=== PATIENT | female | born 1985 | race Caucasian/White ===

== ENCOUNTER 2017-12-12 05:01 | Emergency (ER) | payer MEDICAID, SELFPAY ==
[2017-12-12 05:03] VITALS: BP 115/61; PULSE 90; RESP 16; TEMP 36.8; O2SAT 98
--- NOTE | 2017-12-12 05:10 | ED.VISSUMM ---
- ER Visit Summary Date of Service: 12/12/17 Chief Complaint: Sore throat History of Present Illness: The patient is a 32 F who presents with a sore throat. It is been present for 2 days. She also has associated congestion and cough. She denies fevers chest pain shortness of breath nausea vomiting or diarrhea. She was seen at the urgent care the day her symptoms began and had a strep test which was negative. She woke this morning it hurt to swallow. She took ibuprofen and presented here. Physical Examination: Afebrile vitals are normal No distress resting comfortably Oropharynx is clear I do not appreciate any posterior oropharyngeal erythema uvular deviation or exudate she has no trismus she has normal voice Neck is supple nontender no lymphadenopathy Heart regular rate and rhythm Lungs are clear Test Results: Not indicated Emergency Department Course and Treatment: Patient's history and presentation are consistent with a viral pharyngitis. She was advised on supportive care. She understands to return for new or worsening symptoms. She was advised to continue ibuprofen or Tylenol as needed at home for pain. Treatment Plan: [] Disposition: Discharge Impression: Viral pharyngitis This note was generated with [employer] dictation software. It may contain incorrect words, spelling, and punctuation that were not noted in review of the chart prior to signing ED Disposition - Plan for ED Patient: Chief Complaint: Sore Throat Referrals: Jone Ruiz MD [Primary Care Provider] -
--- NOTE | 2017-12-12 05:12 | ED.DEP ---
ED Disposition - Plan for ED Patient: Chief Complaint: Sore Throat Instructions: ED Pharyngitis Viral Referrals: Jone Ruiz MD [Primary Care Provider] -
== END 2017-12-12 05:26 | disposition home or self-care (01) ==
PROVIDERS: Emergency Provider Emergency Medicine
DX: J02.9 Acute pharyngitis, unspecified (principal); R05 Cough
CPT/HCPCS: 99282

== ENCOUNTER 2018-02-15 17:38 | Emergency (ER) | payer MEDICAID, SELFPAY ==
[2018-02-15 17:40] VITALS: BP 109/58; PULSE 84; RESP 16; TEMP 36.8; O2SAT 100
[2018-02-15] MEDS: Bupivacaine Mpf 0.5% 30 ML VIAL INFILT (18:15)
--- NOTE | 2018-02-15 18:35 | ED.VISSUMM ---
- ER Visit Summary Date of Service: 02/15/18 Chief Complaint: Infection of fourth toe History of Present Illness: The patient is a 32 F presents to the emergency department with infection of the fourth toe. Patient states that she has had a bunion at the area. She went to urgent care 2 days ago because it was increased in size. The counseled on supportive care. She states that the swelling has continued increase. She has had pain with ambulation. She denies any injury. She is otherwise healthy. She denies any fevers or chills. She has no history of immunosuppression. Physical Examination: Patient does have chronic skin change on the dorsal lateral aspect of the right fourth toe. There is fluid-filled bunion with some surrounding cellulitis. There is no pain under the nail. There is no streaking up the foot. Pulses are normal. Test Results: [] Emergency Department Course and Treatment: I do for the patient likely has bunion that is now secondarily infected. Digital block was performed. The area of maximum fluctuance was opened and clear fluid was able to be expressed. I did unroofed the area of blister. Wound was irrigated. This was all done under sterile technique. Patient will be placed on Keflex, placed in a postop shoe, and given outpatient podiatry follow-up to be seen early next week or return with any worsening symptoms or lack of improvement. She is comfortable with this plan of care. Treatment Plan: [] Disposition: Discharge Impression: 1. Infected bunion right fourth toe with incision and drainage This note was generated with [employer] dictation software. It may contain incorrect words, spelling, and punctuation that were not noted in review of the chart prior to signing ED Disposition - Plan for ED Patient: Chief Complaint: Lower Extremity Injury Instructions: ED Bunion Prescriptions: Cephalexin [Keflex] 500 mg PO Q6 #40 cap Referrals: Jone Rubio DPM [STAFF PHYSICIAN] -
[2018-02-15 18:53] VITALS: RESP 16
== END 2018-02-15 18:54 | disposition home or self-care (01) ==
LOC: ED 18:12
PROVIDERS: Emergency Provider Emergency Medicine
DX: M21.611 Bunion of right foot (principal); L03.031 Cellulitis of right toe
CPT/HCPCS: 10060; 99283

== ENCOUNTER → 2018-04-24 13:22 | Outpatient (CLI) | payer MEDICAID, SELFPAY ==
[2018-04-24 15:09] LABS: Follicle Stimulating Hormone 5.2 mIU/mL; Thyroid Stim Hormone (TSH) 0.53 uIU/mL (0.358-3.74)
== END ==
PROVIDERS: Visit Provider Obstetrics & Gynecology
DX: N95.1 Menopausal and female climacteric states (principal); R53.81 Other malaise
CPT/HCPCS: 36415; 83001; 84443

== ENCOUNTER 2018-08-02 16:26 | Emergency (ER) | payer OTHER, MEDICAID, SELFPAY ==
[2018-08-02 16:30] VITALS: BP 107/72; PULSE 70; RESP 18; TEMP 37.2; O2SAT 97; BMI 19.9
--- NOTE | 2018-08-02 16:42 | ED.RN ---
PER NANCI SALCEDO RN ON [facility]. PT IN NOT TO BE DRUG TESTED. ATTENDING DRKim AND NURSE NOTIFIED.
--- NOTE | 2018-08-02 16:55 | ED.DCSUM_ITS ---
- ER Visit Summary Date of Service: 08/02/18 Chief Complaint: Right shoulder injury History of Present Illness: The patient is a 33 F who states she was at work today. 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 Since that time it has been aching. She notes a popping sensation with movement. No prior injuries to the shoulder. She has not had any chronic issues with the shoulder in the past. She is right-handed. She denies any distal paresthesias. Physical Examination: Afebrile vital signs are stable Gen: Well-nourished well-developed Head: Normocephalic atraumatic Eyes: Perrl EOMI ENT: TMs clear no rhinorrhea moist mucous membranes Neck: Supple no lymphadenopathy no JVD nontender CVS: Regular rate rhythm no murmurs normal S1-S2 Respiratory: No distress clear to auscultation bilaterally chest nontender Abdomen: Soft nontender nondistended normal bowel sounds no masses Back: Nontender Extremity: Tender to palpation in the subacromial space. Full range of motion. There is some crepitance in the subacromial space with flexion extension at the shoulder joint. Skin: Normal color no rash Neuro: alert orientated ?3 CN II-XII intact normal strength sensation reflexes gait cerebellar Psych: Normal affect normal mood Test Results: Shoulder films were negative for fracture. I did not see any calcific tendinosis. I did not see any significant degenerative changes. Emergency Department Course and Treatment: I think this is most likely a subacromial bursitis resulting in impingement-like syndrome. Treatment will be ice rest anti-inflammatories. [facility] Impression: 1. Right shoulder bursitis This note was generated with [employer] dictation software. It may contain incorrect words, spelling, and punctuation that were not noted in review of the chart prior to signing ED Disposition - Plan for ED Patient: Disposition: Home or Assisted Living Chief Complaint: Upper Extremity Injury Instructions: ED Bursitis Referrals: [facility] [GROUP OF PHYSICIANS] - (call to arrange early follow up) Additional Instructions: Ice 20-minute sessions tonight and tomorrow Motrin 600 mg every 6 hours with food.
--- NOTE | 2018-08-02 17:00 | RAD_ITS ---
STUDY: X-RAY - RIGHT SHOULDER REASON FOR EXAM: Female, 33 years old. Pain and stiffness of the right arm. TECHNIQUE: 3 view(s) of the shoulder. COMPARISON: None. FINDINGS: Normal glenohumeral articulation. Normal acromioclavicular joint. Normal acromion. Normal humeral head and visualized proximal humerus. The soft tissue structures are unremarkable. There is no demonstrated fracture. Normal visualized pulmonary apex. RAD/Shoulder min 2 Views IMPRESSION: Normal x-ray examination of the shoulder. Electronically Signed: Trice Camejo MD at 17:32 EST , Service support ,
--- OUTSIDE RECORDS SUMMARY | 2018-11-06 07:29 | XMS RPT_ITS ---
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 arm in guarded posture, equal shoulder heights bilaterally. Pt. has FH with roundeds shoulders. PALPATION: Pt. has increased tenderness at anterior aspect of R shoulder along subacromial space. Pt. has mild pain at levator scapulea (likely from maintaining gaurded posture). NEURO: Pt. has normal sensation of bilateral UEs. Pt. has 2+ DTR of bilateral biceps and triceps. No signs of upper limb tension. ROM: L shoulder- full without increase in symptoms. R shoulder- AROM- flexion 145deg (increase pain at 90deg), abd 130deg (increased pain at 90deg), functional ER C1 abherrant motion, functioal IR R PSIS. PROM- R shoulder- flexion 165deg increase NW, abd 160deg increase NW, ER at 90deg- 75deg increase NW, IR at 90deg of abd- 40deg increase NW. MMT: L SHOULDER- 5/5 throughout. R shoulder- flexion 4/5 increase NW, abd 4/5 increase NW, ER 4/5 increase NW, IR 4/5 increase NW; elbow- 5/5 throughout without increase in symptoms. - Special Tests R Shoulder Lift Off Test - Subscapular Tear: Positive R Shoulder Drop Sign - IS Test: Negative R Shoulder Empty Can - SS: Positive R Shoulder Belly Press - SupScap: Positive R Shoulder Neer - Impingement: Positive R Shoulder Champion Dean - Impingement: Positive R Shoulder Biceps Load Test - Labrum: Negative R Shoulder Speeds Test - Labrum/Biceps: Negative - Goals Goal 1:: Pt. to be I with HEP. Goal Time Frame: 4-6 Weeks Goal 2:: Pt. to have decreased pain to 0-2/10 in R shoulder at rest and sleeping allowing for increase quality of life. Goal Time Frame: 4-6 Weeks Goal 3:: Pt. to have increased R shoulder ROM to full without increase in symptoms. Goal Time Frame: 4-6 Weeks Goal 4:: Pt. to have increased R shoulder strength by 1/2 grade in all effected musculature, reducing stress to GH joint without all work and recreational activities. Goal Time Frame: 4-6 Weeks Goal 5:: Pt. to resume all work and recreational activities without increase in R shoulder pain. Goal Time Frame: 4-6 Weeks - Rehabilitation Potential Physical Therapy Diagnosis: Pt. has signs and symptoms consistent with R shoulder pain. Pt. has limited ROM with increased pain with all attempts of functional rotation and over head motions. Pt. is very guarded with all mobility as well. Pt. was negative for drop signs and has some ER/IR strength. Due to higher levels of pain, difficult to full assess. Pt. has had no improvement in symptoms for 1 month. Pt. may have a partial tear vs tendonitis/bursits. Pt. would benefit from PT to increase her ROM and reduce symptoms in order to tolerate all work related activiies without limitions. Rehabilitation Potential: Fair - Anticipated Interventions Patient/Client Instruction: Educate patient on: Condition, Plan of Care, Risk Factors, Benefits of Fitness Program For the Purpose of:: To facilitate caregiver knowledge, To improve self management, To prevent re-injury, To improve ability to perform tasks related to life management, To improve tolerance to ADL's Therapeutic Exercise to Include: Strength training, Power training, Endurance training, Flexibilty training, Passive ROM, Active ROM, Scapular Strength/Stabilization For the Purpose of:: To decrease pain, To decrease swelling/inflammation, To increase ROM, To improve nutrient delivery to tissue, To improve muscle performance and motor function, To improve health of tissue, To decrease soft tissue restriction, To increase flexibility/ROM Manual Therapy Techniques to Include: Mobilization, Passive ROM, Soft tissue mobilization For the Purpose of:: To decrease pain, To decrease swelling/inflammation, To increase ROM, To improve nutrient delivery to tissue, To improve muscle performance and motor function, To improve health of tissue, To decrease soft tissue restriction, To increase flexibility/ROM IF ES: Yes Cryotherapy (ice pack, ice massage): Yes Ultrasound (thermal/non thermal): Yes For the Purpose of:: To decrease pain, To decrease swelling/inflammation, To increase ROM Thank you for the opportunity to evaluate your patient. For Medicare and Medicare HMO plans, please review the plan of care and approve it. It will need to be FAXED BACK to us at [phone] for Medicare purposes. For Medicare only, by signing this I certify the plan of care. Please let me know if there are questions or concerns regarding this plan of care. Physician Signature: Date: <Electronically signed by Senthil Gilliam DPT> 09/09/18 1007 CC: KURTIS Stanley; Gordo DOAN CLS Signed DISCHARGE INSTRUCTION Observed: 09/05/2018 Status: F Source: [place] 11:59 [facility] REPOSITORY [facility] Medical Records Department [address] [place] [address] Discharge Instruction 09/05/18 1157 MR#: [id number] Acct: [id number] Name: CRICKET GALLAGHER Thelma Rep #: [id number] : 1985 33 From: Rena Lamar DO PCP: Maurice Stanley NP Status: PRE ER ED Disposition - Plan for ED Patient: Chief Complaint: Upper Extremity Injury Instructions: ED Shoulder Pain UKO Prescriptions: Oxycodone HCl/Acetaminophen [Percocet 5/325] 1 tab PO Q6H PRN PRN 5 Days #20 tab PRN Reason: Pain Referrals: Maurice Stanley NP-C [Primary Care Provider] - Micah Sylvester DO [STAFF PHYSICIAN] - 3-5 Days What to do if you have Problems For any increased pain, shortness of breath, bleeding, nausea or vomiting, chest pain, or any unexpected problems, contact your Primary Care Provider. Call [facility] ([phone]) or report to the closest Emergency Room. Call 911 if necessary. 09/05/18 1159 <Electronically signed by Rena Lamar DO> Date Rena Lamar DO Cosigner Signature (If Indicated): Date CC: KURTIS Stanley EMERGENCY DEPARTMENT Observed: 09/05/2018 Status: F Source: [place] SUMMARY 11:57 AM [facility] REPOSITORY [facility] Medical Records Department [address] [place] [address] Emergency Department Summary 09/05/18 1154 MR#: [id number] Acct: [id number] Name: CRICKET GALLAGHER Rep #: [id number] : 1985 33 From: Rena Lamar DO PCP: Maurice Stanley NP Status: PRE ER - ER Visit Summary Date of Service: 09/05/18 Chief Complaint: [Right shoulder pain] History of Present Illness: The patient is a 33 F [presents the emergency department with pain in her right shoulder that started in July while at work. 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 Patient was seen in the ER and had x-rays which were unremarkable. Patient was given work restrictions and has been following up with Workmen's Comp. Patient scheduled to follow- up with orthopedics if Workmen's Comp. approves it as well as to have physical therapy. Patient states the pain continues to get worse. She is been using ibuprofen. She denies any new injury.] Physical Examination: [HEENT-PERRLA, EOMI. Cranial nerves II through XII grossly intact. TMs clear. Mucous membranes moist. No adenopathy. Cardiovascular-regular rate and rhythm without murmur or ectopy Lungs-clear to auscultation, chest wall stable without crepitus or subcu emphysema Abdomen-normoactive bowel sounds, soft, nontender, no rebound or rigidity, no peritoneal signs. Extremities-intact 4, normal range of motion, normal pulses, atraumatic. Right shoulder-patient has diffuse tenderness palpation anteriorly and posteriorly. Patient has somewhat limited range of motion in that she is unable to put her right hand behind her back. Patient is able to abduct to 90 degrees and resist abduction. There is no erythema or warmth noted to the joint. No soft tissue swelling noted.] Test Results: [None indicated] Emergency Department Course and Treatment: [] Treatment Plan: Patient to be given a prescription for Percocet for severe pain. Patient to follow-up with orthopedics and Workmen's Comp. I do not feel any further x-rays are indicated however if her symptoms persist she may require further imaging with MRI to evaluate internal derangement. [] Disposition: [Discharged home in stable condition] Impression: [Right shoulder pain-etiology uncertain] This note was generated with Janrain dictation software. It may contain incorrect words, spelling, and punctuation that were not noted in review of the chart prior to signing ED Disposition - Plan for ED Patient: Chief Complaint: Upper Extremity Injury Referrals: Maurice Stanley, ANDRA [Primary Care Provider] - What to do if you have Problems For any increased pain, shortness of breath, bleeding, nausea or vomiting, chest pain, or any unexpected problems, contact your Primary Care Provider. Call [facility] ([phone]) or report to the closest Emergency Room. Call 911 if necessary. 09/05/18 1157 <Electronically signed by Rena Lamar DO> Date Rena Lamar DO Cosigner Signature (If Indicated): Date CC: KURTIS Stanley URGENT CARE VISIT Observed: 09/05/2018 Status: F Source: [place] REPORT 7:07 [facility] REPOSITORY [facility] [address] [place] [address] OFFICE VISIT Date of Service: 09/05/18 MR#: [id number] Acct: [id number] Name: CRICKET GALLAGHER Thelma Rep #: [id number] : 1985 Provider: Gordo DOAN Age/Sex: 33/F Location[facility] Status: Signed Intake Vital Signs09/05/18 Body Mass Index (BMI) 19.8 09/05/18 Height 5 ft 5 in 09/05/18 Weight: 119 lb 09/05/18 Body Mass Index (BMI) 19.8 09/05/18 Blood Pressure 112/78 Intake Visit Reasons: shoulder pain/ [facility] Chief Complaint: Recurring right shoulder pain [employer] Required: No Accompanied by: self Is patient in pain?: Yes Allergies hydrocodone bitartrate [From Vicodin] Allergy (Verified 09/05/18 07:01) Unknown Penicillins Allergy (Verified 09/05/18 07:01) Unknown Medications Fluticasone 0.05% [Flonase Nasal [place]] 1 spray NARES DAILY PRN PRN 03/05/17 [History Confirmed 09/05/18] Multivitamin [Multiple Vitamins] 1 tab PO DAILY 03/05/17 [History Confirmed 09/05/18] Valacyclovir HCl [Valtrex] 500 mg PO DAILY 08/02/18 [History Confirmed 09/05/18] cyclobenzaprine 10 mg tablet 10 mg PO TID PRN #20 tab 09/05/18 [Rx Confirmed 09/05/18] PFSH Medical History Hernia (Acute) [place] teeth extracted (Acute) Surgical History History of partial hysterectomy (Acute) History of tonsillectomy (Acute) Social History Smoking Status: Never smoker alcohol intake: never HPI HPI Chief Complaint: Recurring right shoulder pain Details: CRICKET GALLAGHER, is a 33 F who presents to the office today for follow-up of right shoulder pain. Patient notes she has still not heard for physical therapy and orthopedic referral have been approved yet. She notes her pain is become more intolerable stating any movement of the shoulder exacerbates her pain, requesting to either be taken off work or have her work restrictions revised at this time. She notes no loss of sensation strength or function distal to the right shoulder. She otherwise notes no changes from previous evaluation. ROS Const Constitutional: No other (ROS negative x10 other than as noted above) Exam Const General: cooperative, healthy appearing, no acute distress, uncomfortable Nutritional Appearance: average body habitus Orientation: alert, awake, oriented x3 Skin General: no rashes or lesions noted Neuro General: alert, awake, oriented x3, gait normal Cognition: normal cognition Speech: speech normal Gait: normal gait Motor: muscle tone normal throughout Sensory Exam: no sensory deficits noted Extrem General: normal to inspection, normal capillary refill, no joint enlargement, normal exam except as noted (See other below) Other: Right shoulder: Resistant to perform range of motion evaluations due to extreme discomfort with remarkable tenderness to palpation anterior aspect of right shoulder as well as over ACJ. Psych Appearance: grossly normal Mental Status: mental status grossly normal Mood: congruent mood Affect: normal affect Speech and Movement: speech and movement normal Attitude: cooperative Thought Process: normal Thought Content: normal Judgment: judgment good Assessment AND Plan Problems 1. Bursitis of right shoulder M75.51 Plan See revised return to work restrictions on today's [employer] 14. Rest, ice, home range of motion exercises, Advil as previously instructed. Cyclobenzaprine as prescribed today as needed. Awaiting approval of physical therapy and orthopedic referral as submitted last evaluation via C9. Reschedule follow-up appointment with the now [facility] on 09/19/2018, or follow-up sooner should symptoms worsen or any other concerns develop. Patient states acknowledging understanding all the above. This note was generated with Waps.cnation software. It may contain incorrect words, spelling, and punctuation that were not noted in checking the note before signing. Medications New: cyclobenzaprine To be taken only after work 10 mg PO TID PRN 20 tabs 0RF muscle spasm hours. No driving/operating heavy after taking this medication. Coding Level of Care Code Off vis,est,level 3 Diagnoses Bursitis of right shoulder M75.51 09/05/18 0707 <Electronically signed by Gordo DOAN> Date Gordo DOAN Cosigner Signature: Date (if applicable) CC: URGENT CARE VISIT Observed: 08/28/2018 Status: F Source: [place] REPORT 12:56 PM [facility] REPOSITORY [facility] [address] [address] OFFICE VISIT Date of Service: 08/28/18 MR#: [id number] Acct: [id number] Name: CRICKET GALLAGHER Rep #: [id number] : 1985 Provider: Gordo DOAN Age/Sex: 33/F Location[facility] Status: Signed Intake Vital Signs08/28/18 Height 5 ft 5 in 08/28/18 Weight: 119 lb Intake Visit Reasons: R shoulder/ wants ortho ref Chief Complaint: Recurring right shoulder pain Allergies hydrocodone bitartrate [From Vicodin] Allergy (Verified 08/06/18 16:54) Unknown Penicillins Allergy (Verified 08/06/18 16:54) Unknown Medications Fluticasone 0.05% [Flonase Nasal [place]] 1 spray NARES DAILY PRN PRN 03/05/17 [History Confirmed 08/06/18] Multivitamin [Multiple Vitamins] 1 tab PO DAILY 03/05/17 [History Confirmed 08/06/18] Valacyclovir HCl [Valtrex] 500 mg PO DAILY 08/02/18 [History Confirmed 08/06/18] PFSH Medical History Hernia (Acute) [place] teeth extracted (Acute) Surgical History History of partial hysterectomy (Acute) History of tonsillectomy (Acute) Social History Smoking Status: Never smoker alcohol intake: never HPI HPI Chief Complaint: Recurring right shoulder pain Details: CRICKET GALLAGHER, is a 33 F who presents to the office today for follow-up due to recurring right shoulder pain. Patient notes progressively worsening moderate severe aching right shoulder pain which is slowly worsened particularly over the course of the last 5-7 days, noting her pain is aggravated to touch to the right deltoid/ trapezius regions, alleviated somewhat with keeping arm to her side and ibuprofen. She notes no loss of sensation, strength, function distal to the injury site. She notes mild right cervical discomfort as well. She notes no other associated symptoms and no other alleviating or aggravating factors. Patient is requesting an orthopedic referral for second opinion on care. ROS Const Constitutional: No other (ROS negative x10 other than as noted above) Exam Const General: cooperative, healthy appearing, no acute distress, uncomfortable Nutritional Appearance: average body habitus Orientation: alert, awake, oriented x3 Neck Neck: normal visual inspection, full ROM Chest Chest palpation AND inspection: normal inspection of the chest Resp Effort AND Inspection: normal respiratory effort, able to speak in complete sentences, symmetric chest movement Cardio Rate: regular rate Pulses: radial pulses present GI Inspection: normal to inspection Skin General: no rashes or lesions noted Neuro General: alert, awake, oriented x3, gait normal Cognition: normal cognition Speech: speech normal Gait: normal gait Motor: muscle tone normal throughout Sensory Exam: no sensory deficits noted Extrem General: normal to inspection, full ROM, normal capillary refill, no joint enlargement, normal exam except as noted (See other below) Other: Right shoulder: tenderness to palpation right deltoid and right trapezius and right cervical paraspinal musculature with tenderness exacerbated upon right shoulder range of motion. No palpable ACJ tenderness. Guarded full active range of motion, negative Apley scratch, negative empty can, negative supination. 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 Bursitis of right shoulder M75.51 Plan See revised return to work restrictions noted on today's [employer] 14. Continue ibuprofen as previous. Rest, ice/heat, home range of motion exercises as reinforced today. C9 submitted today requesting physical therapy to evaluate and treat 3 times a week times 4 weeks, as well as orthopedic referral at patient's request. Follow-up with the now clinic in 2 weeks for reevaluation, sooner should symptoms worsen or any other concerns develop. Patient states acknowledging understanding all the above. This note was generated with Janrain dictation software. It may contain incorrect words, spelling, and punctuation that were not noted in checking the note before signing. Orders Referrals: Coding Level of Care Code Off vis,est,level 3 Diagnoses Bursitis of right shoulder M75.51 08/28/18 1256 <Electronically signed by Gordo DOAN> Date Gordo DOAN Cosigner Signature: Date (if applicable) CC: URGENT CARE VISIT Observed: 08/16/2018 Status: F Source: [place]TE REPORT 5:39 PM [facility] REPOSITORY [facility] [address] [place] [address] [address] [place] [address] OFFICE VISIT Date of Service: 08/16/18 MR#: [id number] Acct: [id number] Name: CRICKET GALLAGHER Rep #: [id number] : 1985 Provider: Saud DOAN Age/Sex: 33/F Location[place] [facility] Status: Signed Intake Vital Signs08/16/18 Body Mass Index (BMI) 19.8 08/16/18 Height 5 ft 5 in Intake Visit Reasons: RT SHOULDER/WORK COMP/ [facility] Allergies hydrocodone bitartrate [From Vicodin] Allergy (Verified 08/06/18 16:54) Unknown Penicillins Allergy (Verified 08/06/18 16:54) Unknown Medications Fluticasone 0.05% [Flonase Nasal [place]] 1 spray NARES DAILY PRN PRN 03/05/17 [History Confirmed 08/06/18] Multivitamin [Multiple Vitamins] 1 tab PO DAILY 03/05/17 [History Confirmed 08/06/18] Valacyclovir HCl [Valtrex] 500 mg PO DAILY 08/02/18 [History Confirmed 08/06/18] PFSH Medical History Hernia (Acute) [place] teeth extracted (Acute) Surgical History History of partial hysterectomy (Acute) History of tonsillectomy (Acute) Social History Smoking Status: Never smoker alcohol intake: never HPI HPI Details: CRICKET GALLAGHER, is a 33 F who presents to the office today for follow-up of a work-related injury which occurred on 08/02/2018. Patient states that her right shoulder bursitis has completely resolved and that she has had no pain for the past several days. She states being at work over the past couple days with no pain despite her doing the same repetitive motions as previously. She has no numbness, tingling or loss of range of motion to the right arm or shoulder. No other associated symptoms or alleviating/aggravating factors. ROS Const Constitutional: No chills, fever(s), fatigue or abnormal sleep pattern Musc Musculoskeletal: No joint pain, limited range of motion, numbness, stiffness or tingling Skin Skin: No wounds or lesions Neuro Neurology: No behavioral changes, confusion, numbness or tingling Psych Psychiatric: No behavioral changes, No confusion, No abnormal sleep pattern Endo Endocrine: No fatigue Exam Const General: cooperative, healthy appearing Skin General: no rashes or lesions noted Neuro General: alert, CN's II-XI intact bilaterally Extrem General: normal to inspection, full ROM, normal capillary refill, no joint enlargement Psych Appearance: grossly normal Mental Status: mental status grossly normal Assessment AND Plan Problems 1. Bursitis of right shoulder M75.51 Plan [employer] 14 filled out releasing patient back to work today without restrictions. Patient advised she no longer needs a follow-up in this office unless she should have exacerbation of symptoms or new concerns. Advised of potential red flags and when appropriate to report to the ED. Patient verbalized understanding and agreement with all the above. Coding Level of Care Code Off vis,est,level 3 Diagnoses Bursitis of right shoulder M75.51 08/16/18 1739 <Electronically signed by Saud DOAN> Date Saud DOAN Cosigner Signature: Date (if applicable) CC: URGENT CARE VISIT Observed: 08/06/2018 Status: F Source: [place] REPORT 6:47 PM [facility] REPOSITORY [facility] [address] [place] [address] OFFICE VISIT Date of Service: 08/06/18 MR#: [id number] Acct: [id number] Name: GALLAGHERKENCRICKET A Rep #: [id number] : 1985 Provider: Saud DOAN Age/Sex: 33/F Location: [facility] Status: Signed Intake Vital Signs08/06/18 Height 5 ft 5 in 08/06/18 Weight: 119 lb 08/06/18 Body Mass Index (BMI) 19.8 08/06/18 Blood Pressure 116/78 08/06/18 Respiratory Rate 14 08/06/18 Pulse Rate 89 Intake Visit Reasons: WORK 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/ [facility]/ 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 Electric[employer] Required: No Accompanied by: SELF Is patient in pain?: No Allergies hydrocodone bitartrate [From Vicodin] Allergy (Verified 08/06/18 16:54) Unknown Penicillins Allergy (Verified 08/06/18 16:54) Unknown Medications Fluticasone 0.05% [Flonase Nasal [place]] 1 spray NARES DAILY PRN PRN 03/05/17 [History Confirmed 08/06/18] Multivitamin [Multiple Vitamins] 1 tab PO DAILY 03/05/17 [History Confirmed 08/06/18] Valacyclovir HCl [Valtrex] 500 mg PO DAILY 08/02/18 [History Confirmed 08/06/18] methylprednisolone 4 mg tablets in a dose pack 4 mg PO PER PKG DIR 5 Days #21 tab 08/06/18 [Rx Confirmed 08/06/18] PFSH Medical History Hernia (Acute) [place] teeth extracted (Acute) Surgical History History of partial hysterectomy (Acute) History of tonsillectomy (Acute) Social History Smoking Status: Never smoker alcohol intake: never HPI HPI Details: CRICKET GALLAGHER, is a 33 F who presents to the office today for follow-up of a work-related injury which occurred on 08/02/2018. Patient initially evaluated at [facility] ED and found to have a right shoulder bursitis. 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 She states that since being seen at the ED she has had no resolution of symptoms. She continues to have right shoulder pain and localizes a particular over the deltoid region. She has had no numbness or tingling or loss of range of motion to the right arm or shoulder. No other associated symptoms or alleviating/aggravating factors. ROS Const Constitutional: No chills, fever(s), fatigue or abnormal sleep pattern Musc Musculoskeletal: Positive for joint pain (Right shoulder joint pain); no limited range of motion, numbness, stiffness or tingling Skin Skin: No wounds or lesions Neuro Neurology: No behavioral changes, confusion, numbness or tingling Psych Psychiatric: No behavioral changes, No confusion, No abnormal sleep pattern Endo Endocrine: No fatigue Exam Const General: cooperative, healthy appearing Skin General: no rashes or lesions noted Neuro General: alert, CN's II-XI intact bilaterally Extrem General: full ROM, normal capillary refill, normal exam except as noted, no joint enlargement Other: Pain to palpation over the right deltoid and pain with abduction of the right arm. Negative crossarm, Neer's and Champion sign, negative Apley scratch test. Psych Appearance: grossly normal Mental Status: mental status grossly normal Assessment AND Plan Problems 1. Bursitis of right shoulder M75.51 Status Acute Plan Medrol Dosepak as prescribed today. [employer] 14 filled out releasing patient back to work with restrictions of no pushing/pulling/lifting of greater than 5 pounds as well as no over shoulder height or below knee level work. Patient is to follow back up here in this office on 08/16/2018. She is also to continue with the ibuprofen and instructions given to her at the ER. Patient advised of potential red flags and when appropriate to report to the ED. Patient verbalized understanding and agreement with all the above. Medications New: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 Hospital Number: Repository [id number] Date:5483-62-28KP [address] [place] [address]EC: 08/02/2018 Tertiary NOT GIVENUNK [place] Insurance:SELF PAY [facility] Number: Effective Repository Date:2018-08-02 05/21/2018 CRICKET A Primary Insurance:[facility] CRICKET A [place] [id number] [facility] [address] Number: [id number] [id number] Repository [address]Vsu: ([phone]) Date:7057-36-43HI [phone] () [address] [place] [address]OH: 05/21/2018 Secondary NOT GIVENUNK [place] Insurance:SELF PAY [facility] Number: Effective Repository Date:2018-05-21 04/24/2018 CRICKET A Primary NOT GIVENUNK [place] [id number] Insurance:SELF PAY [facility] [address] Number: Effective Repository [address]Dwo: ([phone] Date:2018-04-24 [phone] (HP) 04/24/2018 CRICKET A Primary Insurance:[facility] CRICKET A [place] [id number] [facility] [address] Number: [id number] [id number] Repository [address]Raj: ([phone]) Date:2604-47-78XP [phone] () [address] [place] [address]QW: 04/24/2018 Secondary NOT GIVENUNK [place] Insurance:SELF PAY [facility] Number: Effective Repository Date:2018-04-24 02/15/2018 CRICKET A Primary Insurance:[facility] CRICKET A [place] [id number] COMMUNITY PLANPolicy CHAPMANDOB: Community [address] Number: [id number] [id number] Repository [address]Kxd: ([phone]) Date:9724-80-03CP [phone] () [address] [place] [address]VK: 02/15/2018 Secondary NOT GIVENUNK [place] Insurance:SELF PAY [facility] Number: Effective Repository Date:2018-02-15 02/12/2018 CRICKET A Primary Insurance:[facility] CRICKET A [place] [id number] [facility] PLANSaint John Vianney HospitalMANDOB: Community [address] Number: [id number] [id number] Repository [address]Chg: ([phone]) Date:1701-27-31MC [phone] () [address] [place] [address]UQ: 02/12/2018 Secondary NOT GIVENUNK [place] Insurance:SELF PAY [facility] Number: Effective Repository Date:2018-02-12 12/12/2017 CRICKET A Primary Insurance:[facility] CRICKET A [place] [id number] [facility] PLANSaint John Vianney HospitalMANDOB: Community [address] Number: [id number] [id number] Repository [address]Tue: ([phone]) Date:4592-89-98ZF [phone] () [address] [place] [address]SW: 12/12/2017 Secondary NOT GIVENUNK [place] Insurance:SELF PAY [facility] Number: Effective Repository Date:2017-12-12
== END 2018-08-02 17:51 | disposition home or self-care (01) ==
PROVIDERS: Emergency Provider Emergency Medicine; Family Provider Nurse Practitioner Adult Health; PCP Nurse Practitioner Adult Health
DX: M75.51 Bursitis of right shoulder (principal)
CPT/HCPCS: 73030; 99282

== ENCOUNTER 2018-09-05 11:33 | Emergency (ER) | payer OTHER, MEDICAID, SELFPAY ==
[2018-09-05 07:01] VITALS: BMI 19.8
[2018-09-05 11:34] VITALS: BP 114/58; PULSE 100; RESP 16; TEMP 36.4; O2SAT 98; BMI 19.1
--- NOTE | 2018-09-05 11:57 | ED.DCSUM_ITS ---
- ER Visit Summary Date of Service: 09/05/18 Chief Complaint: [Right shoulder pain] History of Present Illness: The patient is a 33 F [presents the emergency department with pain in her right shoulder that started in July while at work. 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 Patient was seen in the ER and had x-rays which were unremarkable. Patient was given work restrictions and has been following up with Workmen's [employer]. Patient scheduled to follow-up with orthopedics if Workmen's Comp. approves it as well as to have physical therapy. Patient states the pain continues to get worse. She is been using ibuprofen. She denies any new injury.] Physical Examination: [HEENT-PERRLA, EOMI. Cranial nerves II through XII grossly intact. TMs clear. Mucous membranes moist. No adenopathy. Cardiovascular-regular rate and rhythm without murmur or ectopy Lungs-clear to auscultation, chest wall stable without crepitus or subcu emphysema Abdomen-normoactive bowel sounds, soft, nontender, no rebound or rigidity, no peritoneal signs. Extremities-intact ?4, normal range of motion, normal pulses, atraumatic. Right shoulder-patient has diffuse tenderness palpation anteriorly and posteriorly. Patient has somewhat limited range of motion in that she is unable to put her right hand behind her back. Patient is able to abduct to 90 degrees and resist abduction. There is no erythema or warmth noted to the joint. No soft tissue swelling noted.] Test Results: [None indicated] Emergency Department Course and Treatment: [] Treatment Plan: Patient to be given a prescription for Percocet for severe pain. Patient to follow-up with orthopedics and Workmen's Comp. I do not feel any further x-rays are indicated however if her symptoms persist she may require further imaging with MRI to evaluate internal derangement. [] Disposition: [Discharged home in stable condition] Impression: [Right shoulder pain-etiology uncertain] This note was generated with [employer] dictation software. It may contain incorrect words, spelling, and punctuation that were not noted in review of the chart prior to signing ED Disposition - Plan for ED Patient: Chief Complaint: Upper Extremity Injury Referrals: Neva Stanley, [facility] [Primary Care Provider] -
--- NOTE | 2018-09-05 11:57 | ED.DEP ---
ED Disposition - Plan for ED Patient: Chief Complaint: Upper Extremity Injury Instructions: ED Shoulder Pain [facility] Prescriptions: Oxycodone HCl/Acetaminophen [Percocet 5/325] 1 tab PO Q6H PRN PRN 5 Days #20 tab PRN Reason: Pain Referrals: Neva Stanley, [facility] [Primary Care Provider] - Micah Sylvester DO [STAFF PHYSICIAN] - 3-5 Days
--- OUTSIDE RECORDS SUMMARY | 2018-11-10 04:31 | XMS RPT_ITS ---
:1985 Author Organization OHIP Support Name Relationship Address Phone SUNITA GALLAGHER Unavailable [address] + [address] [place] [address] ARGUETA, FERNANDO Unavailable [address] + [place] [address] WC Unavailable [address] + [place] [address] GALLAGHERCHAYO BOONEY Unavailable [address] [place] [address] ARGUETA, FERNANDO Unavailable [address] + [place] [address] [facility] Unavailable [address] + [place] [address] GALLAGHERSUNITA BOONE Unavailable [address] + [address] [place] [address] ARGUETA, FERNANDO Unavailable [address] + [place] [address] [facility] Unavailable [address] + [place] [address] GALLAGHERCHAYO BOONEY Unavailable [address] + [address] [place] [address] ARGUETA, FERNANDO Unavailable [address] + [place] [address] [facility] Unavailable [address] + [place] [address] GALLAGHERCHAYO BOONEY Unavailable [address] + [address] [place] [address] ARGUETA, FERNANDO Unavailable [address] + [place] [address] [facility] Unavailable [address] + [place] [address] SUNITA GALLAGHER Unavailable [address] + [address] [place] [address] ARGUETA, FERNANDO Unavailable [address] + [place] [address] [facility] Unavailable [address] + [place] [address] CHAYO GALLAGHERY Unavailable [address] + [address] [place] [address] ARGUETA, FERNANDO Unavailable [address] + [place] [address] [facility] Unavailable [address] + [place] [address] SUNITA GALLAGHER Unavailable [address] + [address] [place] [address] ARGUETA, FERNANDO Unavailable [address] + [place] [address] [facility] Unavailable [address] + [place] [address] SUNITA GALLAGHER Unavailable [address] + [address] [place] [address] ARGUETA, FENRANDO Unavailable [address] + [place] [address] [facility] Unavailable [address] + [place] [address] SUNITA GALLAGHER Unavailable [address] + [address] [place] [address] ARGUETA, FERNANDO Unavailable [address] + [place] [address] [facility] Unavailable [address] + [place] [address] CHAYO GALLAGHERY Unavailable [address] + [address] [place] [address] ARGUETA, FERNANDO Unavailable [address] + [place] [address] [facility] Unavailable [address] + [place] [address] CHAYO GALLAGHERY Unavailable [address] + [address] [place] [address] ARGUETA, FERNANDO Unavailable [address] + [place] [address] [facility] Unavailable [address] + [place] [address] SUNITA GALLAGHER Unavailable [address] + [address] [place] [address] ELLIE FERNANDO Unavailable [address] + [place] [address] [facility] Unavailable [address] + [place] [address] SUNITA GALLAGHER Unavailable [address] + [address] [place] [address] ARGUETA, FERNANDO Unavailable [address] + [place] [address] [facility] Unavailable [address] + [place] [address] Care Team Providers Name Role Phone MAURICE STANLEY (RETURN TO FACTORY CLERK) Attending Unavailable CORNIELLO, MAURICE L (RETURN TO FACTORY CLERK) Referring Unavailable CORNIELLO, MAURICE L (RETURN TO FACTORY CLERK) Referring Unavailable CORNIELLO, MAURICE L (RETURN TO FACTORY CLERK) Referring Unavailable FEDERICA ASCENCIO (LIME SLUDGE MIXER) Attending Unavailable CORNIELLO, MAURICE L (RETURN TO FACTORY CLERK) Referring Unavailable INGA SIDDIQI Referring Unavailable Ezekiel Ariza Attending Unavailable Corniello, Maurice LIME SLUDGE MIXER-C Primary Care Unavailable Saud Alberto Attending Unavailable Cornluke, Maurice LIME SLUDGE MIXER-C Referring Unavailable Saud Alberto Attending Unavailable Jaden, Maurice LIME SLUDGE MIXER-C Referring Unavailable Gordo Martin Attending Unavailable Corniello, Maurice LIME SLUDGE MIXER-C Referring Unavailable Gordo Martin Attending Unavailable Corniello, Maurice LIME SLUDGE MIXER-C Referring Unavailable Corniello, Maurice LIME SLUDGE MIXER-C Primary Care Unavailable Rena Lamar Attending Unavailable [...] Unavailable Ney Tirado Primary Care Unavailable Saud Alberto Attending Unavailable Ney Tirado Referring Unavailable Gordo Martin Attending Unavailable Gordo Martin Referring Unavailable Maurice Stanley LIME SLUDGE MIXER-C Primary Care Unavailable Colin Sahu Attending Unavailable Maurice Stanley LIME SLUDGE MIXER-C Referring Unavailable PROBLEMS PROBLEMS DATE TYPE CONDITION / CODE ATTENDING STATUS SOURCE 09/05/2018 Unknown M25.511 - Pain in [place], Remus Active [facility] right shoulder / Community M25.511(ICD-10) Hospital Repository 09/05/2018 Unknown M25.519 - Pain in [place], Remus Active [facility] unspecified Community shoulder / Hospital M25.519(ICD-10) Repository 09/05/2018 Unknown M75.51 - Bursitis Gordo Martin Active [facility] of right shoulder Community / M75.51(ICD-10) Hospital Repository 08/14/2018 Unknown S49.91XA - Ezekiel Ariza Active [facility] Unspecified Community injury of right Hospital shoulder and Repository upper arm, initial encounter / S49.91XA(ICD-10) 06/24/2018 Active Pure NA Active [facility] hypercholesterole [facility] [place] belinda, unspecified Repository / E78.00(ICD-10) 04/24/2018 Unknown N95.1 - Ney Tirado Active [facility] Menopausal and Community female Hospital climacteric Repository states / N95.1(ICD-10) 04/24/2018 Unknown R53.81 - Other Ney Tirado Active [facility] malaise / Community R53.81(ICD-10) Hospital Repository 03/13/2018 Active Diarrhea, NA Active [facility] unspecified / [facility] [place] R19.7(ICD-10) Repository 03/13/2018 Active Nausea / NA Active [facility] R11.0(ICD-10) [facility] [place] Repository PROCEDURES PROCEDURES No Procedure Records FoundRESULTS RESULTS ORTHOPEDIC VISIT Observed: 09/11/2018 Status: F Source: [place] REPORT 10:38 AM [facility] RE[facility] [address] [place] [address] OFFICE VISIT Date of Service: 09/11/18 MR#: [id number] Acct: [id number] Name: GALLAGHERCRICKET A Rep #: [id number] : 1985 Provider: OLIMPIA Sahu Age/Sex: 33/F Location: [facility] Status: Signed Intake Vital Signs09/11/18 Body Mass Index (BMI) 19.1 Intake Visit Reasons: RIGHT SHOULDER Is patient in pain?: Yes Pain scale (1-10): 5 Allergies hydrocodone bitartrate [From Vicodin] Allergy (Verified 09/11/18 08:46) Unknown Penicillins Allergy (Verified 09/11/18 08:46) Unknown Medications Fluticasone 0.05% [Flonase Nasal [place]] 1 spray NARES DAILY PRN PRN 03/05/17 [History Confirmed 09/05/18] Multivitamin [Multiple Vitamins] 1 tab PO DAILY 03/05/17 [History Confirmed 09/05/18] Valacyclovir HCl [Valtrex] 500 mg PO DAILY 08/02/18 [History Confirmed 09/05/18] cyclobenzaprine 10 mg tablet 10 mg PO TID PRN #20 tab 09/05/18 [Rx Confirmed 09/05/18] PFSH Medical History Hernia (Acute) Marcy teeth extracted (Acute) Surgical History History of [...] this time. This note was generated with BetUknow dictation software. It may contain incorrect words, [...] STREP BY Collected: 09/10/2018 Status: F Source: [place] PCR 11:[address] [facility] REPOSITORY TYPE CODE TESTS RESULT OUT OF REFERENCE UNITS RANGE LAB GASSRC Throat Swab GAS Specimen Source LAB PCRGAS Negative for Group A Strep Group A PCR Streptococcus by PCR. Result Comment: This test was developed and its performance characteristics determined by [facility]'s Michele [facility] [place] (-[facility]). It has not been cleared or approved by the FDA. [facility] is regulated under CLIA as qualified to perform high-complexity testing. This test is used for clinical purposes. It should not be regarded as inv estigational or for research. Performed By: #### GASPCR #### [facility] [address] [place], [place] [address] PROGRESS Observed: 09/10/2018 Status: COMPLETED Source: [place] 10:[address] [facility] REPOSITORY HNO ID: [id number] Author: Alesha Angeles Service: (none) Author Type: Physician Dye Maker Type: Progress Notes Filed: 09/10/2018 12:40 PM [...] (FLONASE) 50 mcg/actuation nasal spray Use 1 [place] in each nostril once daily. MULTIVITAMIN (ONE-A-DAY [...] children: 2 Occupational History Occupation Employer Comment [employer] * Social History Main Topics Smoking status: [...] PA-C CNOV Observed: 09/10/2018 Status: COMPLETED Source: [place] 10:15 AM [facility] REPOSITORY Office Visit (WSTR) CRICKET GALLAGHER ([id number]) 1985 F Date Time Provider Department 09/10/18 10:15 AM ALESHA ANGELES) [facility] During your visit today, we [...] (FLONASE) 50 mcg/actuation nasal spray Use 1 [place] in each nostril once daily. MULTIVITAMIN (ONE-A-DAY [...] 2 Occupational History Occupation Employer Comment [employer] * Social History Main Topics Smoking status: [...] cough [J06.9, B97.89] Order(s):RAPID STREP TEST B/O [6439417] Order #: [id number] GROUP A STREPTOCOCCUS BY PCR [SQGASPCR] Order #: [id number] Prescriptions as of 09/10/2018 Sig: VALACYCLOVIR 500 MG TABLET Take 500 mg by mouth once guillermo* LACTASE 3,000 UNIT TABLET Take one or two, when consumi* FLUTICASONE 50 MCG/ACTUATION * Use 1 [place] in each nostril o* ONE-A-DAY ESSENTIAL ORAL Take by mouth once daily. LIDOCAINE 2 % MUCOSAL SOLUTION Gargle and spit 10-15mLs ever* Patient not taking: Reported on 09/10/2018 Problem List As Of Date 09/10/2018 Noted Resolved Recurrent Genital HSV (Herpes Simplex Virus) In*INVALID FOR* More... Lactose intolerance [E73.9] INVALID FOR* Letter Text Alesha Angeles PA-C Urgent Care [address] [facility] [address] Dept: [phone] 09/10/2018 Cricket Gallagher [address] [facility] [address] To Whom it May Concern: This is to certify that Cricket Gallagher was seen at our office for medical care. Sincerely: Alesha Angeles PA-C Encounter Status:Closed by ALESHA ANGELES PA-C on 09/10/18 INITAL EVALUATION (1) Observed: 09/09/2018 Status: F Source: [place] - PT 10:07 AM [facility] REPOSITORY [facility] Physical Therapy [facility] [address] [place] [address] / REHABILITATION SERVICES INITIAL EVALUATION MR#: [id number] Acct: [id number] Name: CRICKET GALLAGHER Rep #: [id number] : 1985 33 From: Senthil Gilliam DPT Referring Dr.: Gordo DOAN Status: REG RCR Insurance: [employer] [facility] [employer] Patient's Visit Information CRICKET [...] shoulder bursitis. 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 Pt. reports having increased pain while [...] to be FAXED BACK to us at [phone] for Medicare purposes. For Medicare only, by signing this I certify the plan of care. Please let me know if there are questions or concerns regarding this plan of care. Physician Signature: Date: <Electronically signed by Senthil Gilliam DPT> 09/09/18 1007 CC: KURTIS Stanley; Gordo DOAN CLS Signed DISCHARGE INSTRUCTION Observed: 09/05/2018 Status: F Source: [place] 11:59 [facility] REPOSITORY [facility] Medical Records Department [address] [address] Discharge Instruction 09/05/18 1157 MR#: [id number] Acct: [id number] Name: CRICKET GALLAGHER Thelma Rep #: [id number] : 1985 33 From: Rena Lamar DO [...] your Primary Care Provider. Call [facility] ([phone]) or report to the closest Emergency Room. Call 911 if necessary. 09/05/18 1159 <Electronically signed by Rena Laamr DO> Date Rena Lamar DO Cosigner Signature (If Indicated): Date CC: KRUTIS Stanley EMERGENCY DEPARTMENT Observed: 09/05/2018 Status: F Source: [place] SUMMARY 11:57 AM [facility] REPOSITORY [facility] Medical Records Department [address] [address] Emergency Department Summary 09/05/18 1154 MR#: [id number] Acct: [id number] Name: CRICKET GALLAGHER Rep #: [id number] : 1985 33 From: Rena Lamar DO [...] pain-etiology uncertain] This note was generated with BetUknow dictation software. It may contain incorrect words, [...] your Primary Care Provider. Call [facility] ([phone]) or report to the closest Emergency Room. Call 911 if necessary. 09/05/18 1157 <Electronically signed by Rena Lamar DO> Date Rena Lamar DO Cosigner Signature (If Indicated): Date CC: KURTIS Stanley URGENT CARE VISIT Observed: 09/05/2018 Status: F Source: [place] REPORT 7:07 [facility] REPOSITORY [facility] [address] [place] [address] OFFICE VISIT Date of Service: 09/05/18 MR#: [id number] Acct: [id number] Name: CRICKET GALLAGHER Thelma Rep #: [id number] : 1985 Provider: Gordo DOAN Age/Sex: 33/F Location: [facility] [facility] Status: Signed Intake Vital Signs09/05/18 Body Mass Index (BMI) 19.8 09/05/18 Height 5 ft 5 in 09/05/18 Weight: 119 lb 09/05/18 Body Mass Index (BMI) 19.8 09/05/18 Blood Pressure 112/78 Intake Visit Reasons: shoulder pain/ [facility] Chief Complaint: Recurring right shoulder pain Restaurant Crew Required: No Accompanied by: self Is patient in pain?: Yes Allergies hydrocodone bitartrate [From Vicodin] Allergy (Verified 09/05/18 07:01) Unknown Penicillins Allergy (Verified 09/05/18 07:01) Unknown Medications Fluticasone 0.05% [Flonase Nasal [place]] 1 spray NARES DAILY PRN PRN 03/05/17 [History Confirmed 09/05/18] Multivitamin [Multiple Vitamins] 1 tab PO DAILY 03/05/17 [History Confirmed 09/05/18] Valacyclovir HCl [Valtrex] 500 mg PO DAILY 08/02/18 [History Confirmed 09/05/18] cyclobenzaprine 10 mg tablet 10 mg PO TID PRN #20 tab 09/05/18 [Rx Confirmed 09/05/18] PFSH Medical History Hernia (Acute) Marcy teeth extracted (Acute) Surgical History History of [...] the above. This note was generated with Brainswayation software. It may contain incorrect words, spelling, [...] Status: F Source: [place] REPORT 12:56 PM [facility] REPOSITORY [facility] Now [address] [address] OFFICE VISIT Date of Service: 08/28/18 MR#: [id number] Acct: [id number] Name: CRICKET GALLAGHER Rep #: [id number] : 1985 Provider: Gordo DOAN Age/Sex: 33/F Location: [facility] Status: Signed Intake Vital Signs08/28/18 Height 5 ft 5 in 08/28/18 Weight: 119 lb Intake Visit Reasons: R shoulder/ wants ortho ref Chief Complaint: Recurring right shoulder pain Allergies hydrocodone bitartrate [From Vicodin] Allergy (Verified 08/06/18 16:54) Unknown Penicillins Allergy (Verified 08/06/18 16:54) Unknown Medications Fluticasone 0.05% [Flonase Nasal [place]] 1 spray NARES DAILY PRN PRN 03/05/17 [History Confirmed 08/06/18] Multivitamin [Multiple Vitamins] 1 tab PO DAILY 03/05/17 [History Confirmed 08/06/18] Valacyclovir HCl [Valtrex] 500 mg PO DAILY 08/02/18 [History Confirmed 08/06/18] PFSH Medical History Hernia (Acute) Marcy teeth extracted (Acute) Surgical History History of [...] negative empty can, negative supination. 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 This note was generated with BetUknow dictation software. It may contain incorrect words, spelling, and punctuation that were not noted in checking the note before signing. Orders Referrals: Coding Level of Care Code Off vis,est,level 3 Diagnoses Bursitis of right shoulder M75.51 08/28/18 1256 <Electronically signed by Gordo DOAN> Date Gordo DOAN Cosigner Signature: Date (if applicable) CC: URGENT CARE VISIT Observed: 08/16/2018 Status: F Source: [place] REPORT 5:39 PM [facility] REPOSITORY [facility] [address] [place] [address] [address] [place] [address] OFFICE VISIT Date of Service: 08/16/18 MR#: [id number] Acct: [id number] Name: CRICKET GALLAGHER Rep #: [id number] : 1985 Provider: Saud DOAN Age/Sex: 33/F Location: [facility] Status: Signed Intake Vital Signs08/16/18 Body Mass Index (BMI) 19.8 08/16/18 Height 5 ft 5 in Intake Visit Reasons: RT SHOULDER/WORK COMP/ [facility] Allergies hydrocodone bitartrate [From Vicodin] Allergy (Verified 08/06/18 16:54) Unknown Penicillins Allergy (Verified 08/06/18 16:54) Unknown Medications Fluticasone 0.05% [Flonase Nasal [place]] 1 spray NARES DAILY PRN PRN 03/05/17 [History Confirmed 08/06/18] Multivitamin [Multiple Vitamins] 1 tab PO DAILY 03/05/17 [History Confirmed 08/06/18] Valacyclovir HCl [Valtrex] 500 mg PO DAILY 08/02/18 [History Confirmed 08/06/18] PFSH Medical History Hernia (Acute) Marcy teeth extracted (Acute) Surgical History History of [...] CARE VISIT Observed: 08/06/2018 Status: F Source: [place] RE[place] 6:47 PM [facility] REPOSITORY [facility] [address] [place] [address] OFFICE VISIT Date of Service: 08/06/18 MR#: [id number] Acct: [id number] Name: GALLAGHERKENCRICKET A Rep #: [id number] : 1985 Provider: Saud DOAN Age/Sex: 33/F Location: [facility] [facility] Status: Signed Intake Vital Signs08/06/18 Height 5 ft 5 in 08/06/18 Weight: 119 lb 08/06/18 Body Mass Index (BMI) 19.8 08/06/18 Blood Pressure 116/78 08/06/18 Respiratory Rate 14 08/06/18 Pulse Rate 89 Intake Visit Reasons: WORK COMP/ [facility]/ RT SHOULDER Restaurant Crew Required: No Accompanied by: SELF Is patient in pain?: No Allergies hydrocodone bitartrate [From Vicodin] Allergy (Verified 08/06/18 16:54) Unknown Penicillins Allergy (Verified 08/06/18 16:54) Unknown Medications Fluticasone 0.05% [Flonase Nasal [place]] 1 spray NARES DAILY PRN PRN 03/05/17 [History Confirmed 08/06/18] Multivitamin [Multiple Vitamins] 1 tab PO DAILY 03/05/17 [History Confirmed 08/06/18] Valacyclovir HCl [Valtrex] 500 mg PO DAILY 08/02/18 [History Confirmed 08/06/18] methylprednisolone 4 mg tablets in a dose pack 4 mg PO PER PKG DIR 5 Days #21 tab 08/06/18 [Rx Confirmed 08/06/18] PFSH Medical History Hernia (Acute) Marcy teeth extracted (Acute) Surgical History History of partial hysterectomy (Acute) History of tonsillectomy (Acute) Social History Smoking Status: Never smoker alcohol intake: never HPI HPI Details: CRICKET GALLAGHER, is a 33 F who presents to the office today for follow-up of a work-related injury which occurred on 08/02/2018. Patient initially evaluated at [facility] ED and found to have a [...] EMERGENCY DEPARTMENT Observed: 08/02/2018 Status: F Source: [place] SUMMARY 10:39 PM [facility] REPOSITORY [facility] Medical Records Department [address] [place] [address] Emergency Department Summary 08/02/18 1651 MR#: [id number] Acct: [id number] Name: CRICKET GALLAGHER Rep #: [id number] : 1985 33 From: Ezekiel Ariza DO [...] be ice rest anti-inflammatories. Follow-up is with [facility] care. Impression: 1. Right shoulder bursitis This note was generated with BetUknow dictation software. It may contain incorrect words, [...] your Primary Care Provider. Call [facility] ([phone]) or report to the closest Emergency Room. Call 911 if necessary. 08/02/18 2239 <Electronically signed by Ezekiel Ariza DO> Date Ezekiel Ariza DO Cosigner Signature (If Indicated): Date CC: LIME SLUDGE MIXER Maurice Stanley SHOULDER MIN 2 VIEWS Observed: 08/02/2018 Status: F Source: [place] 4:44 PM [facility] REPOSITORY [facility] Imaging Services [facility] [address] [place] [address] Shoulder min 2 Views MR#: [id number] Acct: [id number] Name: GALLAGHERCRICKET A Rep #: [id number] : 1985 F 33 From: Trice Camejo MD PCP: Maurice Stanley NP Status: PRE ER Study: Shoulder min 2 Views Date of Exam: 08/02/18 Exam# [id number] Ordering Dr: Ezekiel Ariza DO STUDY: X-RAY [...] , CC: KURTIS Stanley; Ezekiel Ariza DO Leasing Consultant: Signed LIPID PANEL, BASIC Collected: 07/03/2018 Status: F Source: [place] 8:[address] [facility] REPOSITORY TYPE CODE TESTS RESULT OUT OF [...] Desk Reference: National Heart, Lung, and Blood [place]. National Institutes of Health. 2001: NIH Publication No. 01-3305. 2. An International Atherosclerosis Society position paper: global recommendations for the management of dyslipidemia: executive summary, Atherosclerosis. 2014: 232(2):410-413. Performed By: #### LIPB #### [facility] [address] [place] [id number] URGENT CARE VISIT Observed: 05/21/2018 Status: F Source: [place] REPORT 4:20 PM [facility] REPOSIT[facility] [address] [place] [address] [address] [place] [address] OFFICE VISIT Date of Service: 05/21/18 MR#: [id number] Acct: [id number] Name: CRICKET GALLAGHER Rep #: [id number] : 1985 Provider: Saud DOAN Age/Sex: 32/F Location: [facility] Status: Signed Intake Vital Signs05/21/18 Height 5 ft 5 in 05/21/18 Weight: 120 lb 05/21/18 Body Mass Index (BMI) 20.0 05/21/18 Blood Pressure 110/68 Intake Visit Reasons: CK AREA BEHIND RT EAR - CYST? Restaurant Crew Required: No Accompanied by: self Is patient in pain?: No Allergies hydrocodone bitartrate [From Vicodin] Allergy (Verified 05/21/18 14:46) Unknown Penicillins Allergy (Verified 05/21/18 14:46) Unknown Medications Fluticasone 0.05% [Flonase Nasal [place]] 1 spray NARES DAILY PRN PRN 03/05/17 [History Confirmed 02/15/18] Multivitamin [Multiple Vitamins] 1 tab PO DAILY 03/05/17 [History Confirmed 02/15/18] PFSH Medical History Hernia (Acute) Marcy teeth extracted (Acute) Surgical History History of [...] STREP BY Collected: 05/14/2018 Status: F Source: [place] PCR 5:[address] [facility] REPOSITORY TYPE CODE TESTS RESULT OUT OF REFERENCE UNITS RANGE LAB GASSRC Throat Swab GAS Specimen Source LAB PCRGAS Negative for Group A Strep Group A PCR Streptococcus by PCR. Result Comment: This test was developed and its performance characteristics determined by [facility]'s [facility] [place] ([facility]). It has not been cleared or approved by the FDA. -[facility] is regulated under CLIA as qualified to perform high-complexity testing. This test is used for clinical purposes. It should not be regarded as inv estigational or for research. Performed By: #### GASPCR #### [facility] [address] [place], [place] [address] PROGRESS Observed: 05/14/2018 Status: COMPLETED Source: [place] 5:19 PM [facility] REPOSITORY HNO ID: [id number] Author: Edyta Maravilla Service: (none) Author Type: [...] (FLONASE) 50 mcg/actuation nasal spray Use 1 [place] in each nostril once daily. lidocaine viscous [...] CNP CNOV Observed: 05/14/2018 Status: COMPLETED Source: [place] 5:00 PM [facility] REPOSITORY [facility]ALL[facility]HER ([id number]) 1985 F Date Time Provider Department 05/14/18 5:00 PM EDYTA MARAVILLA [facility] During your visit today, we [...] (FLONASE) 50 mcg/actuation nasal spray Use 1 [place] in each nostril once daily. lidocaine viscous [...] agreement with plan of care. Edyta Maravilla, RETURN TO FACTORY CLERK Referring Provider: SELF [200] Allergies As of Date: 05/14/2018 Noted Allergy Reaction PENICILLINS 10/23/2011 2 - Rash VICODIN (HYDROCODONE-ACETAMINOPHE*10/23/2011 2 - Rash Date Reviewed: 05/14/2018 Reviewed by: Greer Quijano LPN - Fully Assessed Reason for Visit: Sore Throat [200] Cmt: x 2 days Primary Visit Diagnosis:Sore throat [J02.9] Order(s):RAPID STREP TEST B/O [[id number]] Order #: [id number] GROUP A STREPTOCOCCUS BY PCR [SQGASPCR] Order #: [id number] lidocaine viscous (LIDOCAINE VISCOUS) 2 % solutionGargle and spit 10-15mLs every 3-4 hours as need for throat discomfort.Disp: 120 mLRfl: 0 Prescriptions as of 05/14/2018 Sig: VALACYCLOVIR 500 MG TABLET Take 500 mg by mouth once guillermo* LACTASE 3,000 UNIT TABLET Take one or two, when consumi* FLUTICASONE 50 MCG/ACTUATION * Use 1 [place] in each nostril o* LIDOCAINE 2 % [...] URINALYSIS, EMPLOYEE Collected: 04/24/2018 Status: F Source: [place] 1:38 PM [facility] REPOSITORY TYPE CODE TESTS RESULT OUT OF [...] ESTERASE Negative Performed By: #### L400.0100 #### [facility] [place], [address] NICOTINE URINE DRUG Collected: 04/24/2018 Status: F Source: [place] SCREEN 1:38 PM [facility] REPOSITORY TYPE CODE TESTS RESULT OUT OF [...] of Nicotine. Performed By: #### L505.6240 #### [facility] [address] [place], [place], [address] CBC, EMPLOYEE Collected: 04/24/2018 Status: F Source: [place] 1:38 PM [facility] REPOSITORY TYPE CODE TESTS RESULT OUT OF [...] Lymph 1.60 Performed By: #### L100.0200 #### [facility] [address] [place], [address] EMPLOYEE PROFILE Collected: 04/24/2018 Status: F Source[facility] [place] [facility] PM [facility] TYPE CODE [...] LDH 156 Performed By: #### L500.2900 #### [facility] [address] [place], [place], [address] THYROID STIM HORMONE Collected: 04/24/2018 Status: F Source: [place] (TSH) 1:26 PM [facility] REPOSITORY TYPE CODE TESTS RESULT OUT OF RANGE REFERENCE UNITS LAB L501.9520 0.358-3.74 uIU/mL Normal TSH 0.53 Performed By: #### L501.9520, L3100.5125 #### [facility] [address] [place], [address] FOLLICLE STIMULATING Collected: 04/24/2018 Status: F Source: [place] HORMONE 1:26 PM [facility] REPOSITORY TYPE CODE TESTS RESULT OUT OF [...] 2012 Performed By: #### L501.9520, L3100.5125 #### [facility] [address] [place], [address] HISTORY PHYSICAL Observed: 04/24/2018 Status: COMPLETED Source: [place] 9:[address] [facility] REPOSITORY HNO ID: [id number] Author: Federica Mohan) Silva Service: (none) Author [...] (FLONASE) 50 mcg/actuation nasal spray Use 1 [place] in each nostril once daily. Disp: 16 [...] with greater than 50% of the total ujyu-vb-ehdl time of the visit in counseling and coordination of care. Federica Ascencio RN APRN.RETURN TO FACTORY CLERK CNOV Observed: 04/24/2018 Status: COMPLETED Source: [place] 9:40 AM [facility] REPOSITORY [facility] CRICKET GALLAGHER ([id number]) 1985 F Date Time Provider Department 04/24/18 9:40 AM FEDERICA ASCENCIO ([place]) [facility] During your visit today, we recorded [...] (FLONASE) 50 mcg/actuation nasal spray Use 1 [place] in each nostril once daily. Disp: 16 [...] with greater than 50% of the total libg-is-lqox time of the visit in counseling and coordination of care. Federica Ascencio RN TREASURY ASSISTANT.[facility] Federica Ascencio RN APRN.[facility] 04/24/2018 10:08 AM Signed Try the tablets with dairy, to see if you can tolerate dairy when using them. Continue almond milk or use lactose free cow's milk. Referring Provider: MAURICE STANLEY ([facility]) [[id number]] Allergies As of Date: 04/24/2018 Noted Allergy [...] consumi* FLUTICASONE 50 MCG/ACTUATION * Use 1 [place] in each nostril o* ONE-A-DAY ESSENTIAL ORAL [...] 04/24/18 PROGRESS Observed: 03/18/2018 Status: COMPLETED Source: [place] 10:45 AM [facility] REPOSITORY HNO ID: [id number] Author: Jason Carlton LPN Service: (none) Author Type: (none) Type: Progress Notes Filed: 03/18/2018 10:47 AM Note Text: Patient presents for Lactose Intolerance testing. Baseline lab levels completed at lab and Lactose (Lactose Monohydrate Powder 50grams in 400mL water) administered to patient at 10:44am. Tolerated well. LOT # [id number] EXP 12/25/2018 Jason Carlton LPN CNNURSE Observed: 03/18/2018 Status: COMPLETED Source: [place] 10:30 AM [facility] Nurse Visit ([facility]) CRICKET GALLAGHER ([id number]) 1985 F Date Time Provider Department 03/18/18 10:30 AM [place] NURSE [facility] During your visit today, we recorded the following information about you: Jason Carlton LPN 03/18/2018 10:47 AM Signed Patient presents for Lactose Intolerance testing. Baseline lab levels completed at lab and Lactose (Lactose Monohydrate Powder 50grams in 400mL water) administered to patient at 10:44am. Tolerated well. LOT # [id number] EXP 12/25/2018 Jason Carlton LPN Referring Provider: MAURICE STANLEY ([facility]) [[id number]] Allergies As of Date: 03/18/2018 Noted Allergy Reaction PENICILLINS 10/23/2011 2 - Rash VICODIN (HYDROCODONE-ACETAMINOPHE*10/23/2011 2 - Rash Date Reviewed: 03/13/2018 Reviewed by: Maurice Krueger ([facility]) Jaden - Fully Assessed Reason for Visit: Lactose Tolerance Test [Other] Primary Visit Diagnosis:Diarrhea, unspecified type [R19.7] Other Visit Diagnosis:Nausea [R11.0] Prescriptions as of 03/18/2018 Sig: FLUTICASONE 50 MCG/ACTUATION * Use 1 [place] in each nostril o* ONE-A-DAY ESSENTIAL ORAL Take by mouth once daily. Problem List As Of Date 03/18/2018 Noted Resolved Recurrent Genital HSV (Herpes Simplex Virus) In*INVALID FOR* More... Encounter Status:Closed by JASON CARLTON LPN on 03/18/18 LACTOSE TOLERANCE Collected: 03/18/2018 Status: F Source: [place] 10:28 AM [facility] REPOSITORY TYPE CODE TESTS RESULT OUT [...] fasting value. Performed By: #### LACTT #### [facility] [address] [place], [place] [address] URINALYSIS Collected: 03/13/2018 Status: F Source: [place] 10:45 AM [facility] REPOSITORY TYPE CODE TESTS RESULT OUT OF REFERENCE UNITS RANGE LAB UCOL Yellow Color Yellow LAB [facility] Clear Clarity Clear LAB UGLUC Negative mg/dL Glucose, Urine Negative LAB UBIL Negative Bilirubin, Urine Negative LAB UKET Negative Ketones, Urine Negative LAB USPG 1.005-1.030 Specific [place], Ur 1.009 LAB UHGB Negative Hemoglobin/Blood, Negative Ur LAB UPH 4.5-8.0 pH 6.0 LAB UPROT Negative mg/dL Protein, Urine Negative LAB UUROB Normal Urobilinogen Normal LAB UNITR Negative Nitrites Negative LAB ULKEST Negative Leukest Negative LAB UCOM Comments SEE COMMENT Result Comment: Microscopic not warranted LAB UMCOM Urine SEE Tuan Comment COMMENT Result Comment: N/A Performed By: #### UA #### [facility] [employer] [address] [place], [place] [address] Observed: 03/13/2018 Status: F Source: [place] URINE CULTURE 10:45 AM [facility] REPOSITORY Culture Result - <10,000 CFU/ml Gram negative bacilli --> ABNORMAL ALERT Insignificant colony count. No further workup. --> ABNORMAL ALERT Performed By: #### URCUL #### [facility] [employer] [address] [place], [place] [address] COMP METABOLIC PANEL Collected: 03/13/2018 Status: F Source: [place] 10:40 AM [facility] REPOSITORY TYPE CODE TESTS RESULT OUT OF REFERENCE UNITS RANGE LAB TP 6.3-8.0 g/dL Protein, Total 6.8 LAB ALB 3.9-4.9 g/dL Albumin 4.2 LAB CA 8.5-10.2 mg/dL Calcium, Total 9.0 LAB TBIL 0.2-1.3 mg/dL Bilirubin, Total 0.6 LAB ALKP 32-117 U/L Alkaline Phosphatase 32 LAB AST 13-35 U/L AST 16 LAB GLU 74-99 mg/dL Low Glucose 48 Result Comment: The [place] Diabetes Association (ADA) provides guidance for cutoff [...] Standards of Medical Care in Diabetes 2016, [place] Diabetes Association. Diabetes Care. 2016.39(Suppl 1). No [...] By: #### CMP, TSH, HPYLRI, CELSCR #### [facility] [address] [place], [place] [address] TSH Collected: 03/13/2018 Status: F Source: [place] 10:[address] [facility] REPOSITORY TYPE CODE TESTS RESULT OUT OF [...] Clinical Practice Guideline. J Clin Endocrinol Metab, 2012:97:6724-9795. 2. Ulises PASTRANA. Overview of thyroid disease in . UpToDate. 2016. Accessed on February 04, 2016. Performed By: #### CMP, TSH, HPYLRI, CELSCR #### [place] [address] [place] [id number] HELICO PYLORI AB Collected: 03/13/2018 Status: F Source: [place] 10:40 AM [facility] REPOSITORY TYPE CODE TESTS RESULT OUT [...] By: #### CMP, TSH, HPYLRI, CELSCR #### [place] [address] [place] [address] CELIAC SCR W REFLEX Collected: 03/13/2018 Status: F Source: [place] 10:40 AM [facility] REPOSITORY TYPE CODE TESTS RESULT OUT OF REFERENCE UNITS RANGE LAB IGA 78-391 mg/dL IgA 208 LAB TGLUTA <20 Units Transglutaminase IgA 3 Result Comment: Negative : < 20 Units Weak Positive : 20 - 30 Units Moderate Pos to Strong Pos: >30 Units The following results were obtained with the [employer] QUANTA Lite h-tTG IgA PIOTR. h-tTG IgA values obtained with different manufacturers' assay methods may not be used interchangeably. The magnitude of th e reported IgA levels cannot be correlated to an endpoint titer. LAB CINTER No serologic evidence of Interpretation No celiac disease. serologic evidence of celiac disease. Performed By: #### CMP, TSH, HPYLRI, CELSCR #### [facility] [employer] [facility] [place] [id number] PROGRESS Observed: 03/13/2018 Status: COMPLETED Source: [place] 9:50 AM [facility] REPOSITORY HNO ID: [id number] Author: Maurice Krueger (Seth Stanley Service: (none) [...] APRN.CNP CNOV Observed: 03/13/2018 Status: COMPLETED Source: [place] 9:40 AM [facility] REPOSITORY Office Visit ([facility]) CRICKET GALLAGHER ([id number]) 1985 F Date Time Provider Department 03/13/18 [...] Order(s):H PYLORI IGG AB [SQHPYLRI] Order #: [id number] FUTURE CELIAC SCREEN WITH REFLEX [SQCELSCR] Order #: [id number] FUTURE LACTOSE TOLERANCE [SQLACTT] Order #: [id number] FUTURE COMP METABOLIC PANEL [SQCMP] Order #: [id number] FUTURE UA CHEMSTRIP ONLY [SQUA] Order #: [id number] FUTURE URINE CULTURE [SQURCUL] Order #: [id number] FUTURE TSH BLD [SQTSH] Order #: [id number] FUTURE Prescriptions as of 03/13/2018 Sig: FLUTICASONE 50 MCG/ACTUATION * Use 1 [place] in each nostril o* ONE-A-DAY ESSENTIAL ORAL [...] EMERGENCY DEPARTMENT Observed: 02/15/2018 Status: F Source: [place] 6:49 PM [facility] REPOSITORY [facility] Medical Records Department [address] [place] [address] Emergency Department Summary 02/15/18 1835 MR#: [id number] Acct: [id number] Name: GALLAGHERCRICKET A Rep #: [id number] : 1985 32 From: Micah Lopez MD [...] and drainage This note was generated with BetUknow dictation software. It may contain incorrect words, [...] your Primary Care Provider. Call [facility] ([phone]) or report to the closest Emergency Room. Call 911 if necessary. 02/15/18 6046 <Electronically signed by Micah Lopez MD> Date Micah Lopez MD Cosigner Signature (If Indicated): Date CC: No Primary Care Physician URGENT CARE VISIT Observed: 02/12/2018 Status: F Source: [place] RE[place] 5:20 PM [facility] REPOSITORY [facility] [address] [place] [address] [address] [place] [address] OFFICE VISIT Date of Service: 02/12/18 MR#: [id number] Acct: [id number] Name: CRICKET GALLAGHER Rep #: [id number] : 1985 Provider: Saud DOAN Age/Sex: 32/F Location: [facility] [place] Status: Signed Intake Vital Signs02/12/18 Height 5 ft 5 in Intake Visit Reasons: CORN ON RT TOE/INFECTED Allergies hydrocodone bitartrate [From Vicodin] Allergy (Verified 02/12/18 16:42) Unknown Penicillins Allergy (Verified 02/12/18 16:42) Unknown Medications Fluticasone 0.05% [Flonase Nasal [place]] 1 spray NARES DAILY PRN PRN 03/05/17 [History Confirmed 02/12/18] Multivitamin [Multiple Vitamins] 1 tab PO DAILY 03/05/17 [History Confirmed 02/12/18] valacyclovir 500 mg tablet PO 30 Days #30 02/12/18 [History Confirmed 02/12/18] PFSH Medical History Hernia (Acute) Surgical History History of partial hysterectomy (Acute) History of tonsillectomy (Acute) Marcy teeth extracted (Acute) Social History Smoking Status: Former smoker alcohol intake: never HPI HPI Details: CRICKET GALLAGHER, is a 32 F who presents to the office today for concern for a possible infected corn on her right foot. Patient states that she has been applying kzej-ivp-ydlygoh corn treatment to the right fourth toe [...] Const General: cooperative, healthy appearing Skin Other: [place] on the lateral right fourth toe. Some slight erythema surrounding the corn however no extending erythema, streaking or warmth. Neuro General: alert, CN's II-XI intact bilaterally Psych Appearance: grossly normal Mental Status: mental status grossly normal Assessment AND Plan Problems 1. [place] of toe L84 Status Acute Plan Patient [...] the above. This note was generated with Brainswayation software. It may contain incorrect words, spelling, and punctuation that were not noted in checking the note before signing. Coding Level of Care Code Off vis,est,level 3 Diagnoses [place] of toe L84 02/12/18 1720 <Electronically signed by Saud DOAN> Date Saud DOAN Cosigner Signature: Date (if applicable) CC: DISCHARGE INSTRUCTION Observed: 12/12/2017 Status: F Source: [place] 5:13 AM [facility] REPOSITORY [facility] Medical Records Department [address] [place] [address] Discharge Instruction 12/12/17 0512 MR#: [id number] Acct: [id number] Name: CRICKET GALLAGHER Rep #: [id number] : 1985 32 From: Jarad Frederick MD [...] your Primary Care Provider. Call [facility] ([phone]) or report to the closest Emergency Room. Call 911 if necessary. 12/12/17 0513 <Electronically signed by Jarad Frederick MD> Date Jarad Frederick MD Cosigner Signature (If Indicated): Date CC: Jone Siddiqi MD EMERGENCY DEPARTMENT Observed: 12/12/2017 Status: F Source: [place] SUMMARY 5:12 AM [facility] Medical Records Department [address] [place] [address] Emergency Department Summary 12/12/17 0510 MR#: [id number] Acct: [id number] Name: CRICKET GALLAGHER Rep #: [id number] : 1985 32 From: Jarad Frederick MD [...] Viral pharyngitis This note was generated with BetUknow dictation software. It may contain incorrect words, spelling, and punctuation that were not noted in review of the chart prior to signing ED Disposition - Plan for ED Patient: Chief Complaint: Sore Throat Referrals: Jone Siddiqi MD [Primary Care Provider] - What to do if you have Problems For any increased pain, shortness of breath, bleeding, nausea or vomiting, chest pain, or any unexpected problems, contact your Primary Care Provider. Call [facility] [place] ([phone]) or report to the closest Emergency Room. Call 911 if necessary. 12/12/17 0512 <Electronically signed by Jarad Frederick MD> Date Jarad Frederick MD Cosigner Signature (If Indicated): Date CC: Jnoe Siddiqi MD PROGRESS Observed: 12/10/2017 Status: COMPLETED Source: [place] 4:20 PM [facility] REPOSITORY O ID: [id number] Author: Carlos Koehler Service: (none) Author Type: [...] (FLONASE) 50 mcg/actuation nasal spray Use 1 [place] in each nostril once daily. MULTIVITAMIN (ONE-A-DAY [...] MD CNOV Observed: 12/10/2017 Status: COMPLETED Source: [place] 3:45 PM [facility] REPOSITORY Office Visit (WSTR) CRICKET GALLAGHER ([id number]) 1985 F Date Time Provider Department 12/10/17 [...] (FLONASE) 50 mcg/actuation nasal spray Use 1 [place] in each nostril once daily. MULTIVITAMIN (ONE-A-DAY [...] Reviewed: 12/10/2017 Reviewed by: Jing E Mikki ICE SKATING TEACHER - Fully Assessed Reason for Visit: Nasal Congestion [235] Cmt: x 2 days Sore Throat [200] Cmt: x 2 days Primary Visit Diagnosis:Sore throat [J02.9] Order(s):RAPID STREP TEST B/O [[id number]] Order #: [id number] Prescriptions as of 12/10/2017 Sig: FLUTICASONE 50 MCG/ACTUATION * Use 1 [place] in each nostril o* ONE-A-DAY ESSENTIAL ORAL Take by mouth once daily. * VALTREX 500 MG TABLET Take one(1) tablet daily. CYCLOBENZAPRINE 10 MG TABLET Take 0.5-1 tablets by mouth t* Medication notes this encounter CYCLOBENZAPRINE 10 MG TABLET >> Jing Frederick ICE SKATING TEACHER 12/10/2017 4:02 PM >> JING FREDERICK ICE SKATING TEACHER SunDec 10, 2017 4:02 PM [place] done Problem List As Of Date 12/10/2017 Noted Resolved Recurrent Genital HSV (Herpes Simplex Virus) In*INVALID FOR* More... Encounter Status:Closed by CARLOS KOEHLER MD on 12/10/17 PROGRESS Observed: 10/02/2017 Status: COMPLETED Source: [place] 9:[address] [facility] REPOSITORY O ID: [id number] Author: Alesha Angeles Service: (none) Author Type: Physician Dye Maker Type: Progress Notes Filed: 10/02/2017 9:37 AM [...] (FLONASE) 50 mcg/actuation nasal spray Use 1 [place] in each nostril once daily. MULTIVITAMIN (ONE-A-DAY ESSENTIAL ORAL) Take by mouth once daily. valacyclovir hcl(VALTREX 500 MG TAB) Take one(1) tablet daily. No current facility-administered medications for this visit. SOCIAL HISTORY Social History Marital status: Single Spouse name: Years of education: 12+ Number of children: 2 Occupational History Occupation Employer Comment [employer] * Social History Main Topics Smoking status: [...] in February 2012. Lives with boyfriend in [facility]. No smokers. REVIEW OF SYSTEMS All other [...] SEVERITY SOURCE 09/11/2018 Drug hydrocodone Unknown Unknown [place] Allergy/416 bitartrate/J385454 Community 690857([facility] 09/11/2018 Drug Penicillins/Y36521 Unknown Unknown [place] Allergy/416 0476(RXNORM) Community 121956([facility] ED CT) Repository 10/23/2011 Drug PENICILLINS RASH High [facility] Class/06988 [place] 1003(SNOMED Repository CT) 10/23/2011 DRUG/116072 HYDROCODONE-ACETAM RASH Low [facility] 003(SNOMED INOPHEN [facility] [place] [facility]) Repository ENCOUNTERS ENCOUNTERS ADMIT/DISCHARGE ACCOUNT ADMITTING ENCOUNTER LOCATION SOURCE NUMBER CLASS 09/13/2018 [id number] Ambulatory [facility] ing:PT Repository 09/11/2018/09/11/19 [id number] Ambulatory BMSBuilding:B [place] [facility] Repository 09/10/2018/09/10/19 [id number] Ambulatory [address] Repository 09/05/2018/09/05/19 [id number] Emergency [address] ing:ED Repository 09/05/2018/09/05/19 [id number] Ambulatory BMSBuilding:B [place] [facility] MS.[facility] Repository 08/28/2018/08/28/19 [id number] Ambulatory BMSBuilding:B [place] 19 MS.[facility] Repository 08/16/2018/08/16/20 [id number] Ambulatory BMSBuilding:B [place] 18 MS.[facility] Repository 08/06/2018/08/06/20 [id number] Ambulatory BMSBuilding:B [place] 18 MS.[facility] Repository 08/02/2018/08/02/20 [id number] Emergency [address] ing:ED Repository 06/24/2018 [id number] Ambulatory [facility] Repository 05/21/2018/05/21/20 [id number] Ambulatory BMSBuilding:Angely [place] 18 MS.NOW [facility] Repository 05/14/2018/05/15/20 [id number] Ambulatory [address] Repository 04/24/2018 [id number] Ambulatory [facility] Hospital ing:EMPH Repository 04/24/2018 [id number] Ambulatory [facility] ing:WOBLAB Repository 04/24/2018/04/25/20 [id number] Ambulatory [address] Repository 03/18/2018/03/18/20 [id number] Ambulatory [address] Repository 03/18/2018/03/19/20 [id number] Ambulatory [address] Repository 03/13/2018/03/13/20 [id number] Ambulatory [address] Repository 03/13/2018/03/14/20 [id number] Ambulatory [address] Repository 02/15/2018/02/16/20 [id number] Emergency [address] Hospital ing:ED Repository 02/12/2018/02/13/20 [id number] Ambulatory BMSBuilding:B [place] [facility] Repository 12/12/2017/12/13/19 [id number] Emergency [address] Hospital ing:ED Repository 12/10/2017/12/12/19 [id number] Ambulatory [address] Repository 10/02/2017/10/02/19 [id number] Ambulatory [address] Repository PAYERS PAYERS ENCOUNTER GUARANTOR PAYER SUBSCRIBER SOURCE 09/13/2018 CRICKET A Primary CRICKET [id number] Insurance:[facility] CHAPMANDOB: [facility] JOMAR [facility] [id number] Number: Repository [address]Vem: [phone] [id number] [phone] () Date:4461-78-87[address], [place] [address]IC: 09/13/2018 Secondary CRICKET A [place] Insurance:[facility] CHAPMANDOB: [facility] [id number] Hospital Number: Repository [id number] Date:3148-29-44KF [address] [place] [address]JE: 09/13/2018 Tertiary NOT GIVENUNK [place] Insurance:SELF PAY [facility] Number: Effective Repository Date:2018-09-05 09/11/2018 CRICKET A Primary CRICKET A [place] [id number] Insurance[facility] [id number] Number: Repository [address]Kag: [phone] [id number] [phone] () Date:4751-01-29IA [facility] [id number], [place] [address]MP: 09/11/2018 Secondary NOT GIVENUNK [place] Insurance:SELF PAY [facility] Number: Effective Repository Date:2018-09-10 09/05/2018 CRICKET A Primary CRICKET A [place] [id number] [facility] [id number] Number: Repository [address]Qfe: [phone] [id number] [phone] () Date:6196-18-28OG [address], [place] [address]RJ: 09/05/2018 Secondary CRICKET A [place] Insurance:[facility] CHAPMANDOB: [facility] [id number] Hospital Number: Repository [id number] Date:0031-78-82RN [address] [place] [address]ZR: 09/05/2018 Tertiary NOT GIVENUNK [place] Insurance:SELF PAY [facility] Number: Effective Repository Date:2018-09-05 09/05/2018 CRICKET A Primary CRICKET A [place] [id number] Insurance:[facility]: [facility] [id number] Number: Repository [address]Nzv: [phone] [phone] (HP) Date:0144-12-76FM [address]ABJVLF, [place] [address]BH: 09/05/2018 Secondary NOT GIVENUNK [place] Insurance:SELF PAY [facility] Number: Effective Repository Date:2018-09-05 08/28/2018 CRICKET A Primary Insurance:[facility] CRICKET A [place] [id number] [facility] Community [address] Number: [id number] [id number] Repository [address]Yqy: (330) Date:9915-73-07LW [phone] () [address] [place], [place] [address]WP: 08/28/2018 Secondary NOT GIVENUNK [place] Insurance:SELF PAY [facility] Number: Effective Repository Date:2018-08-28 08/16/2018 CRICKET A Primary CRICKET A [place] [id number] Insurance:[facility] CHAPMANDOB: Community [address] [facility] [id number] Number: Repository [address]Yxq: [phone] [phone] () Date:6776-14-51GX [address], [place] [address]AD: 08/16/2018 Secondary NOT GIVENUNK [place] Insurance:SELF PAY [facility] Number: Effective Repository Date:2018-08-16 08/06/2018 CRICKET A Primary Insurance:[facility] CRICKET A [place] [id number] [facility]: Community [address] Number: [id number] [id number] Repository [address]Tjt: ([phone]) Date:6576-78-29CE [phone] () [address] [place] [address]SP: 08/06/2018 Secondary NOT GIVENUNK [place] Insurance:SELF PAY [facility] Number: Effective Repository Date:2018-08-06 08/02/2018 CRICKET A Primary CRICKET A [place] [id number] Insurance:[facility] CHAPMANDOB: Community [address] [facility] [id number] Number: Repository [address]Vyj: [phone] [id number] [phone] (HP) Date:1016-85-79BJ [address]Z[place], [place] [address]DK: 08/02/2018 Secondary CRICKET A [place] Insurance:[facility] CHAPMANDOB: [facility] [id number] Hospital Number: Repository [id number] Date:[id number] [address] [place] [address] 10592WZ: 08/02/2018 Tertiary NOT GIVENUNK [place] Insurance:SELF PAY [facility] Number: Effective Repository Date:2018-08-02 05/21/2018 CRICKET A Primary Insurance:[facility] CRICKET A [place] [id number] Community HealthOB: Community LELO DRAPT Number: [id number] [id number] Repository 72582Mcd: ([phone]) Date:2091-39-25QH [phone] () [address] [place] [address] [id number]: 05/21/2018 Secondary NOT GIVENUNK [place] Insurance:SELF PAY [facility] Number: Effective Repository Date:2018-05-21 04/24/2018 CRICKET A Primary NOT GIVENUNK [place] [id number] Insurance:SELF PAY [facility] [address] Number: Effective Repository [phone]: ([phone] Date:2018-04-24 [phone] (HP) 04/24/2018 CRICKET A Primary Insurance:[facility] CRICKET A [place] [id number] Community HealthOB: Community LELO [address]APT Number: [id number] [id number] Repository 11465Nic: ([phone]) Date:3667-32-05AY [phone] () [address] [place] [address] 99573WT: 04/24/2018 Secondary NOT GIVENUNK [place] Insurance:SELF PAY [facility] Number: Effective Repository Date:2018-04-24 02/15/2018 CRICKET A Primary Insurance:[facility] CRICKET A [place] [id number] COMMUNITY PLANPolicy CHAPMANDOB: Community [address]EL[address] Number: [id number] [id number] Repository 27[address]Kpg: ([phone]) Date:5146-04-34QK [phone] () [address] [place] [address] 26137JU: 02/15/2018 Secondary NOT GIVENUNK [place] Insurance:SELF PAY [facility] Number: Effective Repository Date:2018-02-15 02/12/2018 CRICKET A Primary Insurance:[facility] CRICKET A [place] [id number] [facility] Hospital[facility]: Community [address] Number: [id number] [id number] Repository 60873Rsp: ([phone]) Date:1014-79-42WZ [phone] () [address] [place] [address] [id number]: 02/12/2018 Secondary NOT GIVENUNK [place] Insurance:SELF PAY [facility] Number: Effective Repository Date:2018-02-12 12/12/2017 CRICKET A Primary Insurance:[facility] CRICKET A [place] [id number] [facility]For[facility] HospitalMANDOB: Community [address] Number: [id number] [id number] Repository 82883Fuf: ([phone]) Date:7027-90-92UP [phone] () [address] [place] [address] [id number]: 12/12/2017 Secondary NOT GIVENUNK [facility] Insurance:SELF PAY [facility] Number: Effective Repository Date:2017-12-12
== END 2018-09-05 12:27 | disposition home or self-care (01) ==
LOC: ED 12:24
PROVIDERS: Emergency Provider Emergency Medicine; Family Provider Nurse Practitioner Adult Health; PCP Nurse Practitioner Adult Health
DX: M25.511 Pain in right shoulder (principal)
CPT/HCPCS: 99282

== ENCOUNTER 2018-10-10 14:30 | Outpatient (RCR) | payer OTHER, MEDICAID, SELFPAY ==
--- NOTE | 2018-09-09 10:07 | HP.PTEVAL_ITS ---
Patient's Visit Information CRICKET POPE is a 33 year old F referred to Physical Therapy by OLIMPIA Richard with a diagnosis of R shoulder bursitis. Date of Evaluation: 09/06/18 Physical Therapist: Senthil Gilliam DPT - Visit Plan Frequency: 3x /Week Duration: 4 Weeks Plan: Start with ILIANA MERRITT/ to reduce symptoms. inferior glides with PROM as tolerated to precent adhesive capsulitis. Once symptoms have started to reduce may add in strengthening. - Subjective Findings: Pt. is here today for his initial evaluation with diagnosis of R shoulder bursitis. 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 Pt. reports pain has been going on for several weeks dating back to July. Pt. reports there was a specific event, but thinks it was due to a lot of repetition. Pt. reports symptoms has not changes in symptoms at this point in time. Pt. is currently on light duty. Pt. has not been to ortho at this point in time. Pt. has increased pain with raising her arm, and work related activities, lifting, upper body dressing. Pt. reprots pain at R deltoid region and tingling at times down to finger tips. Pt. has started to limit her R arm mobility. Pt. is hopeful to reduce symptoms in order to get back to all recreational and work related activities without limitations. - Pain R shoulder Pain Intensity (Out of 10): 6 Pain Intensity Range: 2, 8 - Objective POSTURE: Pt. tends to keep her R arm in guarded posture, equal shoulder heights bilaterally. Pt. has FH with roundeds shoulders. PALPATION: Pt. has increased tenderness at anterior aspect of R shoulder along subacromial space. Pt. has mild pain at levator scapulea (likely from maintaining gaurded posture). NEURO: Pt. has normal sensation of bilateral UEs. Pt. has 2+ DTR of bilateral biceps and triceps. No signs of upper limb tension. ROM: L shoulder- full without increase in symptoms. R shoulder- AROM- flexion 145deg (increase pain at ~90deg), abd 130deg (increased pain at ~90deg), functional ER C1 abherrant motion, functioal IR R PSIS. PROM- R shoulder- flexion 165deg increase NW, abd 160deg increase NW, ER at 90deg- 75deg increase NW, IR at 90deg of abd- 40deg increase NW. MMT: L SHOULDER- 5/5 throughout. R shoulder- flexion 4/5 increase NW, abd 4/5 increase NW, ER 4/5 increase NW, IR 4/5 increase NW; elbow- 5/5 throughout without increase in symptoms. - Special Tests R Shoulder Lift Off Test - Subscapular Tear: Positive R Shoulder Drop Sign - IS Test: Negative R Shoulder Empty Can - SS: Positive R Shoulder Belly Press - SupScap: Positive R Shoulder Neer - Impingement: Positive R Shoulder Champion Dean - Impingement: Positive R Shoulder Biceps Load Test - Labrum: Negative R Shoulder Speeds Test - Labrum/Biceps: Negative - Goals Goal 1:: Pt. to be I with HEP. Goal Time Frame: 4-6 Weeks Goal 2:: Pt. to have decreased pain to 0-2/10 in R shoulder at rest and sleeping allowing for increase quality of life. Goal Time Frame: 4-6 Weeks Goal 3:: Pt. to have increased R shoulder ROM to full without increase in symptoms. Goal Time Frame: 4-6 Weeks Goal 4:: Pt. to have increased R shoulder strength by 1/2 grade in all effected musculature, reducing stress to GH joint without all work and recreational activities. Goal Time Frame: 4-6 Weeks Goal 5:: Pt. to resume all work and recreational activities without increase in R shoulder pain. Goal Time Frame: 4-6 Weeks - Rehabilitation Potential Physical Therapy Diagnosis: Pt. has signs and symptoms consistent with R shoulder pain. Pt. has limited ROM with increased pain with all attempts of functional rotation and over head motions. Pt. is very guarded with all mobility as well. Pt. was negative for drop signs and has some ER/IR strength. Due to higher levels of pain, difficult to full assess. Pt. has had no improvement in symptoms for ~1 month. Pt. may have a partial tear vs tendonitis/bursits. Pt. would benefit from PT to increase her ROM and reduce symptoms in order to tolerate all work related activiies without limitions. Rehabilitation Potential: Fair - Anticipated Interventions Patient/Client Instruction: Educate patient on: Condition, Plan of Care, Risk Factors, Benefits of Fitness Program For the Purpose of:: To facilitate caregiver knowledge, To improve self management, To prevent re-injury, To improve ability to perform tasks related to life management, To improve tolerance to ADL's Therapeutic Exercise to Include: Strength training, Power training, Endurance training, Flexibilty training, Passive ROM, Active ROM, Scapular Strength/Stabilization For the Purpose of:: To decrease pain, To decrease swelling/inflammation, To increase ROM, To improve nutrient delivery to tissue, To improve muscle performance and motor function, To improve health of tissue, To decrease soft tissue restriction, To increase flexibility/ROM Manual Therapy Techniques to Include: Mobilization, Passive ROM, Soft tissue mobilization For the Purpose of:: To decrease pain, To decrease swelling/inflammation, To increase ROM, To improve nutrient delivery to tissue, To improve muscle performance and motor function, To improve health of tissue, To decrease soft tissue restriction, To increase flexibility/ROM IF ES: Yes Cryotherapy (ice pack, ice massage): Yes Ultrasound (thermal/non thermal): Yes For the Purpose of:: To decrease pain, To decrease swelling/inflammation, To increase ROM Thank you for the opportunity to evaluate your patient. For Medicare and Medicare HMO plans, please review the plan of care and approve it. It will need to be FAXED BACK to us at [phone] for Medicare purposes. For Medicare only, by signing this I certify the plan of care. Please let me know if there are questions or concerns regarding this plan of care. Physician Signature: Date:
--- NOTE | 2018-10-15 12:03 | HP.PTDCSUM ---
HP - PT D/C Summary It has been my pleasure to treat CRICKET POPE under orders from OLIMPIA Richard, for the diagnosis of R shoulder bursitis for a total of 11 visit(s). Discharge Date: 10/10/18 Please see the following information for a summary of their discharge status. - Subjective Subjective: Pt. reports being 95% better overall. Pt. reports no pain with work duties currently. Pt. reports no N/T with any movements. Pt. is still on light duty, but is not having any issues at this point in time. Pt. pleased with progress. Pt. reports being HEP compliant and uis to follow up with physician on October 21. - Pain R shoulder Pain Intensity (Out of 10): 0 R levator scapulea Pain Intensity (Out of 10): 0 - Overall Improvement % Improvement: 95 - Objective Objective/Function: Full ROM noted without increase in symptoms this date. Pt. has 5-/5 strength throughout bilateral shoulders. Pt reports no pain currently, some occassional soreness at R UT, appears to be muscular and due to gaurding for a period of time. Pt. is independent with her HEP. Pt. is close to full duty at this point in time and is ready to be DC from PT. PT. consents. Pt. to follow up with physician early next month. - Goals Goal 1:: Pt. to be I with HEP. Goal Progress: Goal Met Goal 2:: Pt. to have decreased pain to 0-2/10 in R shoulder at rest and sleeping allowing for increase quality of life. Goal Progress: Goal Met Goal 3:: Pt. to have increased R shoulder ROM to full without increase in symptoms. Goal Progress: Goal Met Goal 4:: Pt. to have increased R shoulder strength by 1/2 grade in all effected musculature, reducing stress to GH joint without all work and recreational activities. Goal Progress: Goal Met Goal 5:: Pt. to resume all work and recreational activities without increase in R shoulder pain. Goal Progress: Goal Met - Plan Plan: Pt. to be DC from PT at this point in time. - D/C Information Discharge Comments: Pt. progressed well with PT at this point in time. Pt. was treated with modalities initially progress to ROM and then strengthening. Pt. reports being 95% better overall. Pt. is to follow up with physician early next pam. If there are questions or concerns regarding this patient's physical therapy, please feel free to call me at [phone]. Thank you for the referral of this patient. Sincerely, BENITO CastroT
--- OUTSIDE RECORDS SUMMARY | 2018-11-11 04:49 | XMS RPT_ITS ---
:1985 Author Organization OHIP Support Name Relationship Address Phone SUNITA GALLAGHER Unavailable [address] + [address] [place] [address] ARGUETA, FERNANDO Unavailable [address] + [place] [address] WC Unavailable [address] + [place] [address] GALLAGHERCHAYO BOONEY Unavailable [address] [place] [address] ARGUETA, FERNANDO Unavailable [address] + [place] [address] [facility] Unavailable [address] + [place] [address] GALLAGHERSUNITA BOONE Unavailable [address] + [address] [place] [address] ARGUETA, FERNANDO Unavailable [address] + [place] [address] [facility] Unavailable [address] + [place] [address] GALLAGHERCHAYO BOONEY Unavailable [address] + [address] [place] [address] ARGUETA, FERNANDO Unavailable [address] + [place] [address] [facility] Unavailable [address] + [place] [address] GALLAGHERCHAYO BOONEY Unavailable [address] + [address] [place] [address] ARGUETA, FERNANDO Unavailable [address] + [place] [address] [facility] Unavailable [address] + [place] [address] SUNITA GALLAGHER Unavailable [address] + [address] [place] [address] ARGUETA, FERNANDO Unavailable [address] + [place] [address] [facility] Unavailable [address] + [place] [address] CHAYO GALLAGHERY Unavailable [address] + [address] [place] [address] ARGUETA, FERNANDO Unavailable [address] + [place] [address] [facility] Unavailable [address] + [place] [address] SUNITA GALLAGHER Unavailable [address] + [address] [place] [address] ARGUETA, FERNANDO Unavailable [address] + [place] [address] [facility] Unavailable [address] + [place] [address] SUNITA GALLAGHER Unavailable [address] + [address] [place] [address] ARGUETA, FERNANDO Unavailable [address] + [place] [address] [facility] Unavailable [address] + [place] [address] SUNITA GALLAGHER Unavailable [address] + [address] [place] [address] ARGUETA, FERNANDO Unavailable [address] + [place] [address] [facility] Unavailable [address] + [place] [address] CHYAO GALLAGHERY Unavailable [address] + [address] [place] [address] ARGUETA, FERNANDO Unavailable [address] + [place] [address] [facility] Unavailable [address] + [place] [address] CHAYO GALLAGHERY Unavailable [address] + [address] [place] [address] ARGUETA, FERNANDO Unavailable [address] + [place] [address] [facility] Unavailable [address] + [place] [address] SUNITA GALLAGHER Unavailable [address] + [address] [place] [address] ARGUETA, FERNANDO Unavailable [address] + [place] [address] [facility] Unavailable [address] + [place] [address] SUNITA GALLAGHER Unavailable [address] + [address] [place] [address] ARGUETA, FERNANDO Unavailable [address] + [place] [address] [facility] Unavailable [address] + [place] [address] Care Team Providers Name Role Phone MAURICE STANLEY (FOSTER CARE WORKER) Attending Unavailable CORNIELLO, MAURICE L (FOSTER CARE WORKER) Referring Unavailable CORNIELLO, MAURICE L (FOSTER CARE WORKER) Referring Unavailable CORNIELLO, MAURICE L (FOSTER CARE WORKER) Referring Unavailable FEDERICA ASCENCIO (CAR SWEEPER) Attending Unavailable CORNIELLO, MAURICE L (FOSTER CARE WORKER) Referring Unavailable INGA SIDDIQI Referring Unavailable Ezekiel Ariza Attending Unavailable Corniello, Maurice CAR SWEEPER-C Primary Care Unavailable Saud Alberto Attending Unavailable Corniello, Maurice CAR SWEEPER-C Referring Unavailable Saud Alberto Attending Unavailable [place]ello, Maurice CAR SWEEPER-C Referring Unavailable Gordo Martin Attending Unavailable [place], Maurice CAR SWEEPER-C Referring Unavailable Gordo Martin Attending Unavailable [place], Maurice CAR SWEEPER-C Referring Unavailable [place], Maurice CAR SWEEPER-C Primary Care Unavailable Rena Lamar Attending Unavailable Gordo Martin Attending Unavailable Gordo Martin Referring Unavailable [place]ello, Maurice CAR SWEEPER-C Primary Care Unavailable Colin Sahu Attending Unavailable [place], Maurice CAR SWEEPER-C Referring Unavailable Jarad Frederick Attending Unavailable Primay Care [...] Alberto Attending Unavailable Ney Tirado Referring Unavailable PROBLEMS PROBLEMS DATE TYPE CONDITION / CODE ATTENDING STATUS SOURCE 09/05/2018 Unknown M25.511 - Pain in [place], Remus Active [facility] right shoulder / Community M25.511(ICD-10) Hospital Repository 09/05/2018 Unknown M25.519 - Pain in [place], Remus Active [facility] unspecified Community shoulder / Hospital M25.519(ICD-10) Repository 09/05/2018 Unknown M75.51 - Bursitis Gordo Martin Active [facility] of right shoulder Community / M75.51(ICD-10) Hospital Repository 08/14/2018 Unknown S49.91XA - Ezekiel Ariza Active [facility] Unspecified [facility] injury of right Hospital shoulder and Repository upper arm, initial encounter / S49.91XA(ICD-10) 06/24/2018 Active Pure NA Active [facility] hypercholesterole [facility] [place] belinda, unspecified Repository / E78.00(ICD-10) 04/24/2018 Unknown N95.1 - Ney Tirado Active [facility] Menopausal and Community female Hospital climacteric Repository states / N95.1(ICD-10) 04/24/2018 Unknown R53.81 - Other Celestino Ney Active [facility] malaise / Community R53.81(ICD-10) Hospital Repository 03/13/2018 Active Diarrhea, NA Active [facility] unspecified / [facility] [place] R19.7(ICD-10) Repository 03/13/2018 Active Nausea / NA Active [facility] R11.0(ICD-10) [facility] [place] Repository PROCEDURES PROCEDURES No Procedure Records FoundRESULTS RESULTS ORTHOPEDIC VISIT Observed: 09/11/2018 Status: F Source: [place] REPORT 10:38 AM REPOSITORY [facility] [address] [place] [address] OFFICE VISIT Date of Service: 09/11/18 MR#: [id number] Acct: [id number] Name: GALLAGHERCRICKET Thelma Rep #: [id number] : 1985 Provider: OLIMPIA Sahu Age/Sex: 33/F Location: [facility].S[facility] Status: Signed Intake Vital Signs09/11/18 Body Mass Index (BMI) 19.1 Intake Visit Reasons: RIGHT SHOULDER Is patient in pain?: Yes Pain scale (1-10): 5 Allergies hydrocodone bitartrate [From Vicodin] Allergy (Verified 09/11/18 08:46) Unknown Penicillins Allergy (Verified 09/11/18 08:46) Unknown Medications Fluticasone 0.05% [Flonase Nasal F[place]on] 1 spray NARES DAILY PRN PRN 03/05/17 [History Confirmed 09/05/18] Multivitamin [Multiple Vitamins] 1 tab PO DAILY 03/05/17 [History Confirmed 09/05/18] Valacyclovir HCl [Valtrex] 500 mg PO DAILY 08/02/18 [History Confirmed 09/05/18] cyclobenzaprine 10 mg tablet 10 mg PO TID PRN #20 tab 09/05/18 [Rx Confirmed 09/05/18] PFSH Medical History Hernia (Acute) [place] teeth extracted (Acute) Surgical History History of [...] this time. This note was generated with [employer] dictation software. It may contain incorrect words, [...] STREP BY Collected: 09/10/2018 Status: F Source: [place] PCR 11:10 AM [facility] REPOSITORY TYPE CODE TESTS RESULT OUT OF REFERENCE UNITS RANGE LAB GASSRC Throat Swab GAS Specimen Source LAB PCRGAS Negative for Group A Strep Group A PCR Streptococcus by PCR. Result Comment: This test was developed and its performance characteristics determined by [facility]'s [facility] [place] (-[facility]). It has not been cleared or approved by the FDA. [facility] is regulated under CLIA as qualified to perform high-complexity testing. This test is used for clinical purposes. It should not be regarded as inv estigational or for research. Performed By: #### GASPCR #### [facility] [address] [place], [place] [address] PROGRESS Observed: 09/10/2018 Status: COMPLETED Source: [place] 10:23 AM [facility] REPOSITORY HNO ID: [id number] Author: Alesha Angeles Service: (none) Author Type: Physician General I Farmworker Type: Progress Notes Filed: 09/10/2018 12:40 PM [...] (FLONASE) 50 mcg/actuation nasal spray Use 1 Fulton in each nostril once daily. MULTIVITAMIN (ONE-A-DAY [...] children: 2 Occupational History Occupation Employer Comment [email or web address] * Social History Main Topics Smoking status: [...] PA-C CNOV Observed: 09/10/2018 Status: COMPLETED Source: [place] 10:15 AM [facility] REPOSITORY Office Visit (W[facility]) CRICKET GALLAGHER ([id number]) 1985 F Date Time Provider Department 09/10/18 10:15 AM ALESHA ANGELES) [facility] During your visit today, we recorded [...] (FLONASE) 50 mcg/actuation nasal spray Use 1 F[place]on in each nostril once daily. MULTIVITAMIN (ONE-A-DAY [...] 2 Occupational History Occupation Employer Comment [employer] * Social History Main Topics Smoking status: [...] cough [J06.9, B97.89] Order(s):RAPID STREP TEST B/O [0339630] Order #: [id number] GROUP A STREPTOCOCCUS BY PCR [SQGASPCR] Order #: [id number] Prescriptions as of 09/10/2018 Sig: VALACYCLOVIR 500 MG TABLET Take 500 mg by mouth once guillermo* LACTASE 3,000 UNIT TABLET Take one or two, when consumi* FLUTICASONE 50 MCG/ACTUATION * Use 1 Fulton in each nostril o* ONE-A-DAY ESSENTIAL ORAL Take by mouth once daily. LIDOCAINE 2 % MUCOSAL SOLUTION Gargle and spit 10-15mLs ever* Patient not taking: Reported on 09/10/2018 Problem List As Of Date 09/10/2018 Noted Resolved Recurrent Genital HSV (Herpes Simplex Virus) In*INVALID FOR* More... Lactose intolerance [E73.9] INVALID FOR* Letter Text Alesha Angeles PA-C Urgent Care [address] [facility] [address] Dept: [phone] 09/10/2018 Cricket Gallagher [address] [facility] [place] [address] To Whom it May Concern: This is to certify that Cricket Gallagher was seen at our office for medical care. Sincerely: Alesha Angeles PA-C Encounter Status:Closed by ALESHA ANGELES PA-C on 09/10/18 INITAL EVALUATION (1) Observed: 09/09/2018 Status: F Source: [place] - PT 10:07 AM REPOSITORY [facility] [address] [place] [address] / REHABILITATION SERVICES INITIAL EVALUATION MR#: [id number] Acct: [id number] Name: CRICKET GALLAGHER Rep #: [id number] : 1985 33 From: Senthil Gilliam DPT Referring Dr.: Gordo DOAN Status: REG RCR Insurance: [employer] [facility] Patient's Visit Information CRICKET GALLAGHER [...] shoulder bursitis. 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 Pt. reports having increased pain while [...] to be FAXED BACK to us at [phone] for Medicare purposes. For Medicare only, by signing this I certify the plan of care. Please let me know if there are questions or concerns regarding this plan of care. Physician Signature: Date: <Electronically signed by Senthil Gilliam DPT> 09/09/18 1007 CC: KURTIS Stanley; Gordo DOAN CLS Signed DISCHARGE INSTRUCTION Observed: 09/05/2018 Status: F Source: [place] 11:59 [facility] REPOSITORY [facility] Medical Records Department [address] [place] [address] Discharge Instruction 09/05/18 1157 MR#: [id number] Acct: [id number] Name: CRICKET GALLAGHER Thelma Rep #: [id number] : 1985 33 From: Rena Lamar DO [...] your Primary Care Provider. Call [facility] ([phone]) or report to the closest Emergency Room. Call 911 if necessary. 09/05/18 1159 <Electronically signed by Rena Lamar DO> Date Rena Lamar DO Cosigner Signature (If Indicated): Date CC: KURTIS Stanley EMERGENCY DEPARTMENT Observed: 09/05/2018 Status: F Source: [place] SUMMARY 11:57 AM REPOSITORY [facility] Medical Records Department [address] [place] [address] Emergency Department Summary 09/05/18 1154 MR#: [id number] Acct: [id number] Name: CRICKET GALLAGHER Rep #: [id number] : 1985 33 From: Rena Lamar DO [...] pain-etiology uncertain] This note was generated with [employer] dictation software. It may contain incorrect words, [...] your Primary Care Provider. Call [facility] ([phone]) or report to the closest Emergency Room. Call 911 if necessary. 09/05/18 1157 <Electronically signed by Rena Lamar DO> Date Rena Lamar DO Cosigner Signature (If Indicated): Date CC: KURTIS Stanley URGENT CARE VISIT Observed: 09/05/2018 Status: F Source: [place] REPORT 7:07 [facility] REPOSITORY [facility] [address] [place] [address] OFFICE VISIT Date of Service: 09/05/18 MR#: [id number] Acct: [id number] Name: CRICKET GALLAGHER Thelma Rep #: [id number] : 1985 Provider: Gordo DOAN Age/Sex: 33/F Location: [facility] Status: Signed Intake Vital Signs09/05/18 Body Mass Index (BMI) 19.8 09/05/18 Height 5 ft 5 in 09/05/18 Weight: 119 lb 09/05/18 Body Mass Index (BMI) 19.8 09/05/18 Blood Pressure 112/78 Intake Visit Reasons: shoulder pain/ [facility] Chief Complaint: Recurring right shoulder pain Post Splitter Required: No Accompanied by: self Is patient in pain?: Yes Allergies hydrocodone bitartrate [From Vicodin] Allergy (Verified 09/05/18 07:01) Unknown Penicillins Allergy (Verified 09/05/18 07:01) Unknown Medications Fluticasone 0.05% [Flonase Nasal F[place]] 1 spray NARES DAILY PRN PRN 03/05/17 [History Confirmed 09/05/18] Multivitamin [Multiple Vitamins] 1 tab PO DAILY 03/05/17 [History Confirmed 09/05/18] Valacyclovir HCl [Valtrex] 500 mg PO DAILY 08/02/18 [History Confirmed 09/05/18] cyclobenzaprine 10 mg tablet 10 mg PO TID PRN #20 tab 09/05/18 [Rx Confirmed 09/05/18] PFSH Medical History Hernia (Acute) [place] teeth extracted (Acute) Surgical History History of [...] the above. This note was generated with [employer] software. It may contain incorrect words, spelling, [...] 0707 <Electronically signed by Gordo DOAN> Date oGrdo DOAN Cosigner Signature: Date (if applicable) CC: URGENT CARE VISIT Observed: 08/28/2018 Status: F Source: [place] REPORT 12:56 PM REPOSITORY [facility] [address] [address] OFFICE VISIT Date of Service: 08/28/18 MR#: [id number] Acct: [id number] Name: CRICKET GALLAGHER Rep #: [id number] : 1985 Provider: Gordo DOAN Age/Sex: 33/F Location: [facility] Status: Signed Intake Vital Signs08/28/18 Height 5 ft 5 in 08/28/18 Weight: 119 lb Intake Visit Reasons: R shoulder/ wants ortho ref Chief Complaint: Recurring right shoulder pain Allergies hydrocodone bitartrate [From Vicodin] Allergy (Verified 08/06/18 16:54) Unknown Penicillins Allergy (Verified 08/06/18 16:54) Unknown Medications Fluticasone 0.05% [Flonase Nasal F[place]] 1 spray NARES DAILY PRN PRN 03/05/17 [History Confirmed 08/06/18] Multivitamin [Multiple Vitamins] 1 tab PO DAILY 03/05/17 [History Confirmed 08/06/18] Valacyclovir HCl [Valtrex] 500 mg PO DAILY 08/02/18 [History Confirmed 08/06/18] PFSH Medical History Hernia (Acute) [place] teeth extracted (Acute) Surgical History History of [...] negative empty can, negative supination. Viral 5 trip follower strength sensation intact distal to injury site [...] the above. This note was generated with [employer] dictation software. It may contain incorrect words, spelling, and punctuation that were not noted in checking the note before signing. Orders Referrals: Coding Level of Care Code Off vis,est,level 3 Diagnoses Bursitis of right shoulder M75.51 08/28/18 1256 <Electronically signed by Gordo DOAN> Date Gordo DOAN Cosigner Signature: Date (if applicable) CC: URGENT CARE VISIT Observed: 08/16/2018 Status: F Source: [place] REPORT 5:39 PM REPOSITORY [facility] [address] [place] [address] [address] [place] [address] OFFICE VISIT Date of Service: 08/16/18 MR#: [id number] Acct: [id number] Name: CRICKET GALLAGHER Rep #: [id number] : 1985 Provider: Saud DOAN Age/Sex: 33/F Location: [facility] Status: Signed Intake Vital Signs08/16/18 Body Mass Index (BMI) 19.8 08/16/18 Height 5 ft 5 in Intake Visit Reasons: RT SHOULDER/WORK COMP/ [facility] Allergies hydrocodone bitartrate [From Vicodin] Allergy (Verified 08/06/18 16:54) Unknown Penicillins Allergy (Verified 08/06/18 16:54) Unknown Medications Fluticasone 0.05% [Flonase Nasal [place]] 1 spray NARES DAILY PRN PRN 03/05/17 [History Confirmed 08/06/18] Multivitamin [Multiple Vitamins] 1 tab PO DAILY 03/05/17 [History Confirmed 08/06/18] Valacyclovir HCl [Valtrex] 500 mg PO DAILY 08/02/18 [History Confirmed 08/06/18] PFSH Medical History Hernia (Acute) [place] teeth extracted (Acute) Surgical History History of [...] CARE VISIT Observed: 08/06/2018 Status: F Source: [place] REPORT 6:47 PM REPOSITORY [facility] [address] [place] [address] OFFICE VISIT Date of Service: 08/06/18 MR#: [id number] Acct: [id number] Name: GALLAGHERKENCRICKET A Rep #: [id number] : 1985 Provider: Saud DOAN Age/Sex: 33/F Location: [facility] Status: Signed Intake Vital Signs08/06/18 Height 5 ft 5 in 08/06/18 Weight: 119 lb 08/06/18 Body Mass Index (BMI) 19.8 08/06/18 Blood Pressure 116/78 08/06/18 Respiratory Rate 14 08/06/18 Pulse Rate 89 Intake Visit Reasons: WORK COMP/ [facility]/ RT SHOULDER Post Splitter Required: No Accompanied by: SELF Is patient in pain?: No Allergies hydrocodone bitartrate [From Vicodin] Allergy (Verified 08/06/18 16:54) Unknown Penicillins Allergy (Verified 08/06/18 16:54) Unknown Medications Fluticasone 0.05% [Flonase Nasal F[place]] 1 spray NARES DAILY PRN PRN 03/05/17 [History Confirmed 08/06/18] Multivitamin [Multiple Vitamins] 1 tab PO DAILY 03/05/17 [History Confirmed 08/06/18] Valacyclovir HCl [Valtrex] 500 mg PO DAILY 08/02/18 [History Confirmed 08/06/18] methylprednisolone 4 mg tablets in a dose pack 4 mg PO PER PKG DIR 5 Days #21 tab 08/06/18 [Rx Confirmed 08/06/18] PFSH Medical History Hernia (Acute) [place] teeth extracted (Acute) Surgical History History of partial hysterectomy (Acute) History of tonsillectomy (Acute) Social History Smoking Status: Never smoker alcohol intake: never HPI HPI Details: CRICKET GALLAGHER, is a 33 F who presents to the office today for follow-up of a work-related injury which occurred on 08/02/2018. Patient initially evaluated at [facility] ED and found to have a right [...] EMERGENCY DEPARTMENT Observed: 08/02/2018 Status: F Source: [place] SUMMARY 10:39 PM REPOSITORY [facility] Medical Records Department [address] [place] [address] Emergency Department Summary 08/02/18 1651 MR#: [id number] Acct: [id number] Name: CRICKET GALLAGHER Rep #: [id number] : 1985 33 From: Ezekiel Ariza DO [...] be ice rest anti-inflammatories. Follow-up is with [facility] care. Impression: 1. Right shoulder bursitis This note was generated with [employer] dictation software. It may contain incorrect words, [...] your Primary Care Provider. Call [facility] ([phone]) or report to the closest Emergency Room. Call 911 if necessary. 08/02/18 2239 <Electronically signed by Ezekiel Ariza DO> Date Ezekiel rAiza DO Cosigner Signature (If Indicated): Date CC: CAR SWEEPER Maurice Stanley SHOULDER MIN 2 VIEWS Observed: 08/02/2018 Status: F Source: [place] 4:44 PM REPOSITORY [facility] Imaging Services [facility] [place] [address] Shoulder min 2 Views MR#: [id number] Acct: [id number] Name: GALLAGHERCRICKET A Rep #: [id number] : 1985 F 33 From: Trice Camejo MD PCP: Maurice Stanley NP Status: PRE ER Study: Shoulder min 2 Views Date of Exam: 08/02/18 Exam# [id number] Ordering Dr: Ezekiel Ariza DO STUDY: X-RAY [...] , CC: KURTIS Stanley; Ezekiel Ariza DO Insurance Sales Professional: Signed LIPID PANEL, BASIC Collected: 07/03/2018 Status: F Source: [place] 8:50 AM [facility] REPOSITORY TYPE CODE TESTS RESULT OUT OF [...] Desk Reference: National Heart, Lung, and Blood [place]. National Institutes of Health. 2001: NIH Publication No. 01-3305. 2. An International Atherosclerosis Society position paper: global recommendations for the management of dyslipidemia: executive summary, Atherosclerosis. 2014: 232(2):410-413. Performed By: #### LIPB #### [facility] [address] [place] [id number] URGENT CARE VISIT Observed: 05/21/2018 Status: F Source: [place] REPORT 4:20 PM REPOSITORY [facility] [address] [place] [address] [address] [place] [address] OFFICE VISIT Date of Service: 05/21/18 MR#: [id number] Acct: [id number] Name: CRICKET GALLAGHER Rep #: [id number] : 1985 Provider: Saud DOAN Age/Sex: 32/F Location: [facility] Status: Signed Intake Vital Signs05/21/18 Height 5 ft 5 in 05/21/18 Weight: 120 lb 05/21/18 Body Mass Index (BMI) 20.0 05/21/18 Blood Pressure 110/68 Intake Visit Reasons: CK AREA BEHIND RT EAR - CYST? Post Splitter Required: No Accompanied by: self Is patient in pain?: No Allergies hydrocodone bitartrate [From Vicodin] Allergy (Verified 05/21/18 14:46) Unknown Penicillins Allergy (Verified 05/21/18 14:46) Unknown Medications Fluticasone 0.05% [Flonase Nasal F[place]] 1 spray NARES DAILY PRN PRN 03/05/17 [History Confirmed 02/15/18] Multivitamin [Multiple Vitamins] 1 tab PO DAILY 03/05/17 [History Confirmed 02/15/18] PFSH Medical History Hernia (Acute) [place] teeth extracted (Acute) Surgical History History of [...] STREP BY Collected: 05/14/2018 Status: F Source: [place] PCR 5:30 PM [facility] REPOSITORY TYPE CODE TESTS RESULT OUT OF REFERENCE UNITS RANGE LAB GASSRC Throat Swab GAS Specimen Source LAB PCRGAS Negative for Group A Strep Group A PCR Streptococcus by PCR. Result Comment: This test was developed and its performance characteristics determined by [facility] [place] ([facility]). It has not been cleared or approved by the FDA. -[facility] is regulated under CLIA as qualified to perform high-complexity testing. This test is used for clinical purposes. It should not be regarded as inv estigational or for research. Performed By: #### GASPCR #### [facility] [address] [place], [place] [address] PROGRESS Observed: 05/14/2018 Status: COMPLETED Source: [place] 5:19 PM [facility] REPOSITORY HNO ID: [id number] Author: Edyta Maravilla Service: (none) Author Type: [...] (FLONASE) 50 mcg/actuation nasal spray Use 1 [place] in each nostril once daily. lidocaine viscous [...] CNP CNOV Observed: 05/14/2018 Status: COMPLETED Source: [place] 5:00 PM [facility] REPOSITORY [facility] CR[facility]ET GALLAGHER ([id number]) 1985 F Date Time Provider Department 05/14/18 5:00 PM EDYTA MARAVILLA [facility] During your visit today, we recorded [...] (FLONASE) 50 mcg/actuation nasal spray Use 1 [place] in each nostril once daily. lidocaine viscous [...] agreement with plan of care. Edyta Maravilla, FOSTER CARE WORKER Referring Provider: SELF [200] Allergies As of Date: 05/14/2018 Noted Allergy Reaction PENICILLINS 10/23/2011 2 - Rash VICODIN (HYDROCODONE-ACETAMINOPHE*10/23/2011 2 - Rash Date Reviewed: 05/14/2018 Reviewed by: Greer Quijano LPN - Fully Assessed Reason for Visit: Sore Throat [200] Cmt: x 2 days Primary Visit Diagnosis:Sore throat [J02.9] Order(s):RAPID STREP TEST B/O [[id number]] Order #: [id number] GROUP A STREPTOCOCCUS BY PCR [SQGASPCR] Order #: [id number] lidocaine viscous (LIDOCAINE VISCOUS) 2 % solutionGargle and spit 10-15mLs every 3-4 hours as need for throat discomfort.Disp: 120 mLRfl: 0 Prescriptions as of 05/14/2018 Sig: VALACYCLOVIR 500 MG TABLET Take 500 mg by mouth once guillermo* LACTASE 3,000 UNIT TABLET Take one or two, when consumi* FLUTICASONE 50 MCG/ACTUATION * Use 1 [place] in each nostril o* LIDOCAINE 2 % [...] URINALYSIS, EMPLOYEE Collected: 04/24/2018 Status: F Source: [place] 1:38 PM REPOSITORY TYPE CODE TESTS RESULT OUT OF [...] ESTERASE Negative Performed By: #### L400.0100 #### [facility] [place], [address] NICOTINE URINE DRUG Collected: 04/24/2018 Status: F Source: [place] S[place]EN 1:38 PM REPOSITORY TYPE CODE TESTS RESULT OUT OF [...] of Nicotine. Performed By: #### L505.6240 #### [facility] [address] [place], [place], [address] CBC, EMPLOYEE Collected: 04/24/2018 Status: F Source: [place] 1:38 PM REPOSITORY TYPE CODE TESTS RESULT OUT OF [...] Lymph 1.60 Performed By: #### L100.0200 #### [facility] [address] [place], [address] EMPLOYEE PROFILE Collected: 04/24/2018 Status: F Source: [place] [facility] PM [facility] RE[facility] TYPE CODE [...] LDH 156 Performed By: #### L500.2900 #### [facility] [address] [place], [place], [address] THYROID STIM HORMONE Collected: 04/24/2018 Status: F Source: [place] (TSH) 1:26 PM REPOSITORY TYPE CODE TESTS RESULT OUT OF RANGE REFERENCE UNITS LAB L501.9520 0.358-3.74 uIU/mL Normal TSH 0.53 Performed By: #### L501.9520, L3100.5125 #### [facility] [address] [place], [address] FOLLICLE STIMULATING Collected: 04/24/2018 Status: F Source: [place] 1:26 PM REPOSITORY TYPE CODE TESTS RESULT OUT OF [...] 2012 Performed By: #### L501.9520, L3100.5125 #### [facility] [address] [place], [address] HISTORY PHYSICAL Observed: 04/24/2018 Status: COMPLETED Source: [place] 9:51 AM [facility] REPOSITORY HNO ID: [id number] Author: Federica Mohan) Silva Service: (none) Author [...] (FLONASE) 50 mcg/actuation nasal spray Use 1 Fulton in each nostril once daily. Disp: 16 [...] with greater than 50% of the total jibx-cz-hegw time of the visit in counseling and coordination of care. Federica Ascencio RN APRN.FOSTER CARE WORKER CNOV Observed: 04/24/2018 Status: COMPLETED Source: [place] 9:40 AM [facility] REPOSITORY [facility] CRICKET GALLAGHER ([id number]) 1985 F Date Time Provider Department 04/24/18 9:40 AM FED[place]ICA ASCENCIO ([facility] During your visit today, we recorded the following information about you: Pulse Blood pressure Weight Height 71/minute 98/62 51.7 kg 1.651 m Federica sAcencio RN APRN.[facility]AYLEY 04/24/2018 11:26 AM Signed Cricket [...] (FLONASE) 50 mcg/actuation nasal spray Use 1 [place] in each nostril once daily. Disp: 16 [...] with greater than 50% of the total gkwy-zo-lczc time of the visit in counseling and coordination of care. Federica Ascencio RN HOTEL ENGINEER.[facility] Federica Ascencio RN APRN.[facility] 04/24/2018 10:08 AM Signed Try the tablets with dairy, to see if you can tolerate dairy when using them. Continue almond milk or use lactose free cow's milk. Referring Provider: MAURICE STANLEY ([facility]) [[id number]] Allergies As of Date: 04/24/2018 Noted Allergy [...] consumi* FLUTICASONE 50 MCG/ACTUATION * Use 1 [place] in each nostril o* ONE-A-DAY ESSENTIAL ORAL [...] 04/24/18 PROGRESS Observed: 03/18/2018 Status: COMPLETED Source: [place] 10:45 AM [facility] REPOSITORY HNO ID: [id number] Author: Jason Carlton LPN Service: (none) Author Type: (none) Type: Progress Notes Filed: 03/18/2018 10:47 AM Note Text: Patient presents for Lactose Intolerance testing. Baseline lab levels completed at lab and Lactose (Lactose Monohydrate Powder 50grams in 400mL water) administered to patient at 10:44am. Tolerated well. LOT # [id number] EXP 12/25/2018 Jason Carlton LPN CNNURSE Observed: 03/18/2018 Status: COMPLETED Source: [place] 10:30 AM [facility] Nurse Visit (F[facility]) CRICKET GALLAGHER ([id number]) 1985 F Date Time Provider Department 03/18/18 10:30 AM [place] NURSE [facility] During your visit today, we recorded the following information about you: Jason Carlton LPN 03/18/2018 10:47 AM Signed Patient presents for Lactose Intolerance testing. Baseline lab levels completed at lab and Lactose (Lactose Monohydrate Powder 50grams in 400mL water) administered to patient at 10:44am. Tolerated well. LOT # [id number] EXP 12/25/2018 Jason Carlton LPN Referring Provider: MAURICE STANLEY ([facility]) [[id number]] Allergies As of Date: 03/18/2018 Noted Allergy Reaction PENICILLINS 10/23/2011 2 - Rash VICODIN (HYDROCODONE-ACETAMINOPHE*10/23/2011 2 - Rash Date Reviewed: 03/13/2018 Reviewed by: Maurice Krueger ([facility]) Jaden - Fully Assessed Reason for Visit: Lactose Tolerance Test [Other] Primary Visit Diagnosis:Diarrhea, unspecified type [R19.7] Other Visit Diagnosis:Nausea [R11.0] Prescriptions as of 03/18/2018 Sig: FLUTICASONE 50 MCG/ACTUATION * Use 1 [place] in each nostril o* ONE-A-DAY ESSENTIAL ORAL Take by mouth once daily. Problem List As Of Date 03/18/2018 Noted Resolved Recurrent Genital HSV (Herpes Simplex Virus) In*INVALID FOR* More... Encounter Status:Closed by JASON CARLTON LPN on 03/18/18 LACTOSE TOLERANCE Collected: 03/18/2018 Status: F Source: [place] 10:28 AM [facility] REPOSITORY TYPE CODE TESTS RESULT [...] value. Performed By: #### LACTT #### [facility] [address] [place], [place] [address] URINALYSIS Collected: 03/13/2018 Status: F Source: [place] 10:45 AM [facility] REPOSITORY TYPE CODE TESTS RESULT OUT OF REFERENCE UNITS RANGE LAB UCOL Yellow Color Yellow LAB [facility] Clear Clarity Clear LAB UGLUC Negative mg/dL Glucose, Urine Negative LAB UBIL Negative Bilirubin, Urine Negative LAB UKET Negative Ketones, Urine Negative LAB USPG 1.005-1.030 Specific [place], Ur 1.009 LAB UHGB Negative Hemoglobin/Blood, Negative Ur LAB UPH 4.5-8.0 pH 6.0 LAB UPROT Negative mg/dL Protein, Urine Negative LAB UUROB Normal Urobilinogen Normal LAB UNITR Negative Nitrites Negative LAB ULKEST Negative Leukest Negative LAB UCOM Comments SEE COMMENT Result Comment: Microscopic not warranted LAB [facility] Urine SEE Tuan Comment COMMENT Result Comment: N/A Performed By: #### UA #### [facility] [employer] [address] [place], [place] [address] Observed: 03/13/2018 Status: F Source: [place] URINE CULTURE 10:45 AM [facility] REPOSITORY Culture Result - <10,000 CFU/ml Gram negative bacilli --> ABNORMAL ALERT Insignificant colony count. No further workup. --> ABNORMAL ALERT Performed By: #### URCUL #### [facility] [employer] [address] [place], [place] [address] COMP METABOLIC PANEL Collected: 03/13/2018 Status: F Source: [place] 10:40 AM [facility] REPOSITORY TYPE CODE TESTS RESULT OUT OF REFERENCE UNITS RANGE LAB TP 6.3-8.0 g/dL Protein, Total 6.8 LAB ALB 3.9-4.9 g/dL Albumin 4.2 LAB CA 8.5-10.2 mg/dL Calcium, Total 9.0 LAB TBIL 0.2-1.3 mg/dL Bilirubin, Total 0.6 LAB ALKP 32-117 U/L Alkaline Phosphatase 32 LAB AST 13-35 U/L AST 16 LAB GLU 74-99 mg/dL Low Glucose 48 Result Comment: The [place] Diabetes Association (ADA) provides guidance for cutoff [...] Standards of Medical Care in Diabetes 2016, [place] [employer]. Diabetes Care. 2016.39(Suppl 1). No [...] #### CMP, TSH, HPYLRI, CELSCR #### [facility] [address] [place], [place] [address] TSH Collected: 03/13/2018 Status: F Source: [place] 10:40 AM [facility] REPOSITORY TYPE CODE TESTS RESULT OUT OF [...] Clinical Practice Guideline. J Clin Endocrinol Metab, 2012:97:4783-6091. 2. Ulises PASTRANA. Overview of thyroid disease in . UpToDate. 2016. Accessed on February 04, 2016. Performed By: #### CMP, TSH, HPYLRI, CELSCR #### [place] [address] [place] [address] HELICO PYLORI AB Collected: 03/13/2018 Status: F Source: [place] 10:40 AM [facility] REPOSITORY TYPE CODE TESTS RESULT [...] By: #### CMP, TSH, HPYLRI, CELSCR #### [place] [address] [place] [address] CELIAC SCR W REFLEX Collected: 03/13/2018 Status: F Source: [place] 10:40 AM [facility] REPOSITORY TYPE CODE TESTS RESULT OUT OF REFERENCE UNITS RANGE LAB IGA 78-391 mg/dL IgA 208 LAB TGLUTA <20 Units Transglutaminase IgA 3 Result Comment: Negative : < 20 Units Weak Positive : 20 - 30 Units Moderate Pos to Strong Pos: >30 Units The following results were obtained with the Digital [employer] QUANTA Lite h-tTG IgA PIOTR. h-tTG IgA values obtained with different manufacturers' assay methods may not be used interchangeably. The magnitude of th e reported IgA levels cannot be correlated to an endpoint titer. LAB CINTER No serologic evidence of Interpretation No celiac disease. serologic evidence of celiac disease. Performed By: #### CMP, TSH, HPYLRI, CELSCR #### [facility] [employer] [facility] [place] [id number] PROGRESS Observed: 03/13/2018 Status: COMPLETED Source: [place] 9:50 AM [facility] REPOSITORY HNO ID: [id number] Author: Maurice Krueger (Seth Stanley Service: (none) Author Type: Nurse Practitioner Type: Progress Notes Filed: 03/13/2018 9:54 AM Note Text: HPI/CC: Cricekt Gallagher is a 32 year old female [...] APRN.CNP CNOV Observed: 03/13/2018 Status: COMPLETED Source: [place] 9:40 AM [facility] REPOSITORY Office Visit ([facility]AMPWS) CRICKET GALLAGHER ([id number]) 1985 F Date Time Provider Department 03/13/18 [...] Order(s):H PYLORI IGG AB [SQHPYLRI] Order #: [id number] FUTURE CELIAC SCREEN WITH REFLEX [SQCELSCR] Order #: [id number] FUTURE LACTOSE TOLERANCE [SQLACTT] Order #: [id number] FUTURE COMP METABOLIC PANEL [SQCMP] Order #: [id number] FUTURE UA CHEMSTRIP ONLY [SQUA] Order #: [id number] FUTURE URINE CULTURE [SQURCUL] Order #: [id number] FUTURE TSH BLD [SQTSH] Order #: [id number] FUTURE Prescriptions as of 03/13/2018 Sig: FLUTICASONE 50 MCG/ACTUATION * Use 1 [place] in each nostril o* ONE-A-DAY ESSENTIAL ORAL [...] EMERGENCY DEPARTMENT Observed: 02/15/2018 Status: F Source: [place] SUMMARY 6:49 PM REPOSITORY [facility] Medical Records Department [address] [place] [address] Emergency Department Summary 02/15/18 1835 MR#: [id number] Acct: [id number] Name: GALLAGHERCRICKET A Rep #: [id number] : 1985 32 From: Micah Lopez MD [...] and drainage This note was generated with [employer] dictation software. It may contain incorrect words, [...] your Primary Care Provider. Call [facility] ([phone]) or report to the closest Emergency Room. Call 911 if necessary. 02/15/18 2463 <Electronically signed by Micah Lopez MD> Date Micah Lopez MD Cosigner Signature (If Indicated): Date CC: No Primary Care Physician URGENT CARE VISIT Observed: 02/12/2018 Status: F Source: [place] RE[place] 5:20 PM REPOSITORY [facility] [address] [place] [address] [address] [place] [address] OFFICE VISIT Date of Service: 02/12/18 MR#: [id number] Acct: [id number] Name: CRICKET GALLAGHER Rep #: [id number] : 1985 Provider: Saud DOAN Age/Sex: 32/F Location[place] [facility] Status: Signed Intake Vital Signs02/12/18 Height 5 ft 5 in Intake Visit Reasons: CORN ON RT TOE/INFECTED Allergies hydrocodone bitartrate [From Vicodin] Allergy (Verified 02/12/18 16:42) Unknown Penicillins Allergy (Verified 02/12/18 16:42) Unknown Medications Fluticasone 0.05% [Flonase Nasal Fulton] 1 spray NARES DAILY PRN PRN 03/05/17 [History Confirmed 02/12/18] Multivitamin [Multiple Vitamins] 1 tab PO DAILY 03/05/17 [History Confirmed 02/12/18] valacyclovir 500 mg tablet PO 30 Days #30 02/12/18 [History Confirmed 02/12/18] PFSH Medical History Hernia (Acute) Surgical History History of partial hysterectomy (Acute) History of tonsillectomy (Acute) [place] teeth extracted (Acute) Social History Smoking Status: Former smoker alcohol intake: never HPI HPI Details: CRICKET GALLAGHER, is a 32 F who presents to the office today for concern for a possible infected corn on her right foot. Patient states that she has been applying yzwb-lvl-fvomsgz corn treatment to the right fourth toe [...] Const General: cooperative, healthy appearing Skin Other: [place] on the lateral right fourth toe. Some slight erythema surrounding the corn however no extending erythema, streaking or warmth. Neuro General: alert, CN's II-XI intact bilaterally Psych Appearance: grossly normal Mental Status: mental status grossly normal Assessment AND Plan Problems 1. [place] of toe L84 Status Acute Plan Patient [...] the above. This note was generated with [employer] software. It may contain incorrect words, spelling, and punctuation that were not noted in checking the note before signing. Coding Level of Care Code Off vis,est,level 3 Diagnoses [place] of toe L84 02/12/18 1720 <Electronically signed by Saud DOAN> Date Saud DOAN Cosigner Signature: Date (if applicable) CC: DISCHARGE INSTRUCTION Observed: 12/12/2017 Status: F Source: [place] 5:13 AM REPOSITORY [facility] Medical Records Department [address] [place] [address] Discharge Instruction 12/12/17 0512 MR#: [id number] Acct: [id number] Name: CRICKET GALLAGHER Rep #: [id number] : 1985 32 From: Jarad Frederick MD [...] your Primary Care Provider. Call [facility] ([phone]) or report to the closest Emergency Room. Call 911 if necessary. 12/12/17 0513 <Electronically signed by Jarad Frederick MD> Date Jarad Frederick MD Cosigner Signature (If Indicated): Date CC: Jone Siddiqi MD EMERGENCY DEPARTMENT Observed: 12/12/2017 Status: F Source: [place] SUMMARY 5:12 AM [facility] Medical Records Department [address] [place] [address] Emergency Department Summary 12/12/17 0510 MR#: [id number] Acct: [id number] Name: CRICKET GALLAGHER Rep #: [id number] : 1985 32 From: Jarad Frederick MD [...] Viral pharyngitis This note was generated with [employer] dictation software. It may contain incorrect words, [...] problems, contact your Primary Care Provider. Call [employer] Registry ([phone]) or report to the closest Emergency Room. Call 911 if necessary. 12/12/17 0512 <Electronically signed by Jarad Frederick MD> Date Jarad Frederick MD Cosigner Signature (If Indicated): Date CC: Jone Siddiqi MD PROGRESS Observed: 12/10/2017 Status: COMPLETED Source: [place] 4:20 PM [facility] REPOSITORY O ID: [id number] Author: Carlos Koehler Service: (none) Author Type: [...] (FLONASE) 50 mcg/actuation nasal spray Use 1 [place] in each nostril once daily. MULTIVITAMIN (ONE-A-DAY [...] MD CNOV Observed: 12/10/2017 Status: COMPLETED Source: [place] 3:45 PM [facility] REPOSITORY Office Visit (WSTR) CRICKET GALLAGHER ([id number]) 1985 F Date Time Provider Department 12/10/17 [...] (FLONASE) 50 mcg/actuation nasal spray Use 1 [place] in each nostril once daily. MULTIVITAMIN (ONE-A-DAY [...] Reviewed: 12/10/2017 Reviewed by: Jing E Mikki SMOKING TOBACCO PACKER HAND - Fully Assessed Reason for Visit: Nasal Congestion [235] Cmt: x 2 days Sore Throat [200] Cmt: x 2 days Primary Visit Diagnosis:Sore throat [J02.9] Order(s):RAPID STREP TEST B/O [2394035] Order #: [id number] Prescriptions as of 12/10/2017 Sig: FLUTICASONE 50 MCG/ACTUATION * Use 1 [place] in each nostril o* ONE-A-DAY ESSENTIAL ORAL Take by mouth once daily. * VALTREX 500 MG TABLET Take one(1) tablet daily. CYCLOBENZAPRINE 10 MG TABLET Take 0.5-1 tablets by mouth t* Medication notes this encounter CYCLOBENZAPRINE 10 MG TABLET >> Jing Frederick SMOKING TOBACCO PACKER HAND 12/10/2017 4:02 PM >> JING FREDERICK SMOKING TOBACCO PACKER HAND SunDec 10, 2017 4:02 PM [place] done Problem List As Of Date 12/10/2017 Noted Resolved Recurrent Genital HSV (Herpes Simplex Virus) In*INVALID FOR* More... Encounter Status:Closed by CARLOS KOEHLER MD on 12/10/17 PROGRESS Observed: 10/02/2017 Status: COMPLETED Source: [place] 9:25 AM [facility] REPOSITORY O ID: [id number] Author: Alesha Angeles Service: (none) Author Type: Physician General I Farmworker Type: Progress Notes Filed: 10/02/2017 9:37 AM [...] (FLONASE) 50 mcg/actuation nasal spray Use 1 [place] in each nostril once daily. MULTIVITAMIN (ONE-A-DAY ESSENTIAL ORAL) Take by mouth once daily. valacyclovir hcl(VALTREX 500 MG TAB) Take one(1) tablet daily. No current facility-administered medications for this visit. 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 Lives with boyfriend in [place]. No smokers. REVIEW OF SYSTEMS All other [...] SEVERITY SOURCE 09/11/2018 Drug hydrocodone Unknown Unknown [place] Allergy/416 bitartrate/[id number] Community 930392([facility] Rep[facility] 09/11/2018 Drug Penicillins/Y10842 Unknown Unknown [place] Allergy/416 0476(RXNORM) Community 221246([facility] ED CT) Repository 10/23/2011 Drug PENICILLINS RASH High [facility] Class/01899 [address] [place] 1003(SNOMED Repository CT) 10/23/2011 DRUG/532690 HYDROCODONE-ACETAM RASH Low [facility] 003(SNOMED INOPHEN [address] [place] [address]) Repository ENCOUNTERS ENCOUNTERS ADMIT/DISCHARGE ACCOUNT ADMITTING ENCOUNTER LOCATION SOURCE NUMBER CLASS 09/13/2018 [id number] Ambulatory [facility] ing:PT Repository 09/11/2018/09/11/19 [id number] Ambulatory BMSBuilding:B [place] [address] [place].[facility] Repository 09/10/2018/09/10/19 [id number] Ambulatory [address] Repository 09/05/2018/09/05/19 [id number] Emergency [address] ing:ED Repository 09/05/2018/09/05/19 [id number] Ambulatory BMSBuilding:B [place] [facility] [place] [facility] Repository 08/28/2018/08/28/19 [id number] Ambulatory BMSBuilding:B [place] [facility] [place] [facility] Repository 08/16/2018/08/16/20 [id number] Ambulatory BMSBuilding:B [place] [address] [facility] [place] [facility] Repository 08/06/2018/08/06/20 [id number] Ambulatory BMSBuilding:B [place] [address] [facility] [place] [facility] Repository 08/02/2018/08/02/20 [id number] Emergency [address] ing:ED Repository 06/24/2018 [id number] Ambulatory [facility] Repository 05/21/2018/05/21/20 [id number] Ambulatory BMSBuilding:Angely Bustill[address] 18 [place].NOW [facility] Repository 05/14/2018/05/15/20 [id number] Ambulatory [address] Repository 04/24/2018 [id number] Ambulatory [facility] Hospital ing:EMPH Repository 04/24/2018 [id number] Ambulatory [facility] ing:WOBLAB Repository 04/24/2018/04/25/20 [id number] Ambulatory [address] Repository 03/18/2018/03/18/20 [id number] Ambulatory [address] Repository 03/18/2018/03/19/20 [id number] Ambulatory [address] Repository 03/13/2018/03/13/20 [id number] Ambulatory [address] Repository 03/13/2018/03/14/20 [id number] Ambulatory [address] Repository 02/15/2018/02/16/20 [id number] Emergency [address] Hospital ing:ED Repository 02/12/2018/02/13/20 [id number] Ambulatory BMSBuilding:B [place] [facility] Repository 12/12/2017/12/13/19 [id number] Emergency [address] Hospital ing:ED Repository 12/10/2017/12/12/19 [id number] Ambulatory [address] Repository 10/02/2017/10/02/19 [id number] Ambulatory [address] Repository PAYERS PAYERS ENCOUNTER GUARANTOR PAYER SUBSCRIBER SOURCE 09/13/2018 CRICKET A Primary CRICKET [id number] Insurance:[facility] CHAPMANDOB: [facility] JOMAR [facility] [id number] Number: Repository [address]Ify: [phone] [id number] [phone] () Date:3673-53-36UU [address], [place] [address]YR: 09/13/2018 Secondary CRICKET A [place] Insurance:[facility] CHAPMANDOB: [facility] [id number] Hospital Number: Repository [id number] Date:1158-83-25QD [address] [place] [address]GC: 09/13/2018 Tertiary NOT GIVENUNK [place] Insurance:SELF PAY [facility] Hospital Number: Effective Repository Date:2018-09-05 09/11/2018 CRICKET A Primary CRICKET A [place] [id number] Insurance:[facility] [id number] Number: Repository [address]Bli: [phone] [id number] [phone] () Date:9153-74-52KP [facility] [address], [place] [address]VU: 09/11/2018 Secondary NOT GIVENUNK [place] Insurance:SELF PAY [facility] Number: Effective Repository Date:2018-09-10 09/05/2018 CRICKET A Primary CRICKET A [place] [id number] [facility] [id number] Number: Repository [address]Pru: [phone] [id number] [phone] () Date:0032-95-43PR [address], [place] [address]SR: 09/05/2018 Secondary CRICKET A [place] Insurance:[facility] CHAPMANDOB: [facility] [id number] Hospital Number: Repository [id number] Date:6534-60-18LY [address] [place] [address]NK: 09/05/2018 Tertiary NOT GIVENUNK [place] Insurance:SELF PAY [facility] Hospital Number: Effective Repository Date:2018-09-05 09/05/2018 CRICKET A Primary CRICKET A [place] [id number] Insurance:[facility]: [facility] [id number] Number: Repository [address]Jfn: [phone] [phone] (HP) Date:4922-02-88TL [address], [place] [address]HL: 09/05/2018 Secondary NOT GIVENUNK [place] Insurance:SELF PAY [facility] Number: Effective Repository Date:2018-09-05 08/28/2018 CRICKET A Primary Insurance:[facility] CRICKET A [place] [id number] [facility] PLANHoly [facility]eemer HospitalMANDOB: Community [address] Number: [id number] [id number] Repository [address]Vgr: ([phone]) Date:1391-88-68PU [phone] () [address] [place], [place] [address]WP: 08/28/2018 Secondary NOT GIVENUNK [place] Insurance:SELF PAY [facility] Hospital Number: Effective Repository Date:2018-08-28 08/16/2018 CRICKET A Primary CRICKET A [place] [id number] Insurance:[facility] CHAPMANDOB: Community [address] [facility] [id number] Number: Repository [address]Ubm: [phone] [phone] () Date:9835-88-78JG [address], [place] [address]YE: 08/16/2018 Secondary NOT GIVENUNK [place] Insurance:SELF PAY [facility] Hospital Number: Effective Repository Date:2018-08-16 08/06/2018 CRICKET A Primary Insurance:[facility] CRICKET A [place] [id number] [facility] Community [address] Number: [id number] [id number] Repository [address]Wye: (524) Date:0941-61-37QO [phone] () [address] [place] [address]PN: 08/06/2018 Secondary NOT GIVENUNK [place] Insurance:SELF PAY Community [facility] Hospital Number: Effective Repository Date:2018-08-06 08/02/2018 CRICKET A Primary CRICKET A [place] [id number] Insurance:[facility] CHAPMANDOB: Community [address] [facility] [id number] Number: Repository [address]Frj: [phone] [id number] [phone] (HP) Date:0891-64-89VQ [address]FCZLUPOB, [place] [address]TX: 08/02/2018 Secondary CRICKET A [place] Insurance:[facility] CHAPMANDOB: [facility] [id number] Hospital Number: Repository [id number] Date:9811-39-26XC [address] [place] [address]SC: 08/02/2018 Tertiary NOT GIVENUNK [place] Insurance:SELF PAY [facility] Number: Effective Repository Date:2018-08-02 05/21/2018 CRICKET A Primary Insurance:[facility] CRICKET A [place] [id number] [facility] Community LELO DRAPT Number: [id number] [id number] Repository [address]Srg: [phone]) Date:6065-13-75NB [phone] () [address] [place] [address] 67914BA: 05/21/2018 Secondary NOT GIVENUNK [employer] Insurance:SELF PAY [facility] Number: Effective Repository Date:2018-05-21 04/24/2018 CRICKET A Primary NOT GIVENUNK [place] [id number] Insurance:SELF PAY [facility] LELO DRAPT [address] Number: Effective Repository [phone]: [phone] Date:2018-04-24 [phone] (HP) 04/24/2018 CRICKET A Primary Insurance:[facility] CRICKET A [place] [id number] [facility] LELO DRAPT Number: [id number] [id number] Repository [address]Kxf: [phone]) Date:[id number] [phone] () [address] [place] [address] 53400VN: 04/24/2018 Secondary NOT GIVENUNK [place] Insurance:SELF PAY [facility] Number: Effective Repository Date:2018-04-24 02/15/2018 CRICKET A Primary Insurance:[facility] CRICKET A [place] [id number] COMM[employer]ITY PLANPolicy CHAPMANDOB: Community LELO DRAPT Number: [id number] [id number] Repository 18[address]Tjd: [phone]) Date:0922-48-80YA [phone] () [address] [place] [address] [id number]: 02/15/2018 Secondary NOT GIVENUNK [place] Insurance:SELF PAY [facility] Number: Effective Repository Date:2018-02-15 02/12/2018 CRICKET A Primary Insurance:[facility] CRICKET A [place] [id number] [facility]: Community LELO DRAPT Number: [id number] [id number] Repository [address]Pmb: [phone]) Date:3719-21-91AV [phone] () [address] [place] [address] [id number]: 02/12/2018 Secondary NOT GIVENUNK [place] Insurance:SELF PAY [facility] Number: Effective Repository Date:2018-02-12 12/12/2017 CRICKET A Primary Insurance:[facility] CRICKET A [place] [id number] [facility] HospitalMANDOB: Community LELO DRAPT Number: [id number] [id number] Repository [address]Pnb: [phone]) Date:7931-44-80KL [phone] () [address] [place] [address] [id number]: 12/12/2017 Secondary NOT GIVENUNK [place] Insurance:SELF PAY [facility] Number: Effective Repository Date:2017-12-12
== END 2018-10-10 19:00 | disposition home or self-care (01) ==
LOC: PT 14:30
PROVIDERS: Family Provider Nurse Practitioner Adult Health; PCP Nurse Practitioner Adult Health; Referring Provider Physician Assistant; Visit Provider Physician Assistant
DX: M75.51 Bursitis of right shoulder (principal)
CPT/HCPCS: 97014; 97035; 97110; 97161; 97530; G0283

== ENCOUNTER 2018-10-25 19:08 | Emergency (ER) | payer MEDICAID, SELFPAY ==
[2018-10-21 15:18] VITALS: BMI 19.1
[2018-10-25 19:11] VITALS: BP 99/68; PULSE 85; RESP 14; TEMP 37.1; O2SAT 100; BMI 19.3
[2018-10-25 19:12] VITALS: BP 99/68; PULSE 84; RESP 15; TEMP 37.1; O2SAT 100
--- NOTE | 2018-10-25 21:04 | CT_ITS ---
STUDY: CT BRAIN WITHOUT CONTRAST REASON FOR EXAM: Female, 33 years old. Headache and dizziness RADIATION DOSAGE (If Supplied By Facility): CTDIvol = ( 44.99 ) mGy, DLP = ( 762.36 ) mGycm TECHNIQUE: Transaxial CT imaging of the brain was performed without administration of intravenous contrast material. Individualized dose optimization techniques were used for this CT. COMPARISON: None. FINDINGS: Normal soft tissue structures. Normal calvarium. Normal size ventricles and extra-axial spaces for the patient's age. Normal white matter tracts of the cerebral hemispheres. Normal basal ganglia and thalami. Normal brainstem. Normal cerebellum. There is no intracranial hemorrhage. There are no findings of an acute ischemic infarction. There is mucosal thickening within the right maxillary sinus and fluid within the right sphenoid sinus CT/Brain/Head without Contrast IMPRESSION: Normal unenhanced CT scan of the brain Right maxillary and sphenoid sinus disease. Electronically Signed: Jone Rivera MD at 21:50 EST , Service support ,
[2018-10-25] MEDS: Metoclopramide 10 MG/2 ML Vial IV (21:23)
[2018-10-25] MEDS: DiphenhydrAMINE 50 MG/ML Syringe 25 MG IV (21:23)
[2018-10-25] MEDS: 0.9% Normal Saline 1,000 ML 1000 ML IV (21:23)
[2018-10-25] MEDS: Ketorolac 30 MG/ML Syringe IV (21:23)
[2018-10-25 22:16] VITALS: BP 100/61; BP 102/66; BP 94/62; PULSE 65; PULSE 67; PULSE 69
--- NOTE | 2018-10-25 22:53 | ED.VISSUMM ---
- ER Visit Summary Date of Service: 10/25/18 Chief Complaint: [Headache] History of Present Illness: The patient is a 33 F [presents the emergency department complaint of a headache that she is had for 4 days. Patient states that she woke up with a headache 4 days ago but did not wake her up from sleep. Patient rates the headache as an 8 out of 10 currently. Patient's had no nausea or vomiting associated with it. Patient describes the headache as throbbing and diffuse involving the entire head. Patient does complain of photophobia and states that loud sounds bother her. Patient never had a headache like this before and states this is the worst headache she is had. Patient also 2 days ago was seen at urgent care and diagnosed with bilateral ear infections and was started on an antibiotic. Patient denies any falls or head injuries. She denies any neck pain.] Physical Examination: [HEENT-PERRLA, EOMI. Cranial nerves II through XII grossly intact. TMs clear. Mucous membranes moist. No adenopathy. Cardiovascular-regular rate and rhythm without murmur or ectopy Lungs-clear to auscultation, chest wall stable without crepitus or subcu emphysema Abdomen-normoactive bowel sounds, soft, nontender, no rebound or rigidity, no peritoneal signs. Neuro [id number] and heel tolliver testing within normal limits, negative Romberg, negative for drift, fundi benign, negative Kernig's, negative Brudzinski sign Extremities-intact ?4, normal range of motion, normal pulses, atraumatic] Test Results: [CT scan of the brain without contrast obtained was unremarkable other than some right maxillary and sphenoid disease.] Emergency Department Course and Treatment: [Patient was medicated with Reglan, Benadryl, Toradol, and a liter of normal saline and she had significant improvement in her headache.] Treatment Plan: [Patient to follow-up with primary care physician 3-5 days.] Disposition: [Discharged home in stable condition] Impression: [Cephalgia-suspect migraine] This note was generated with [employer] software. It may contain incorrect words, spelling, and punctuation that were not noted in review of the chart prior to signing ED Disposition - Plan for ED Patient: Referrals: Neva Stanley, [facility] [Primary Care Provider] -
--- NOTE | 2018-10-25 22:55 | ED.DEP ---
ED Disposition - Plan for ED Patient: Instructions: ED Cephalgia Unspecified Referrals: Neva Stanley, [facility] [Primary Care Provider] - 3-5 Days
--- NOTE | 2018-10-25 22:56 | DCINST.ED_ITS ---
ED Disposition - Plan for ED Patient: Instructions: ED Cephalgia Unspecified Referrals: Neva Stanley, [facility] [Primary Care Provider] - 3-5 Days
== END 2018-10-25 23:00 | disposition home or self-care (01) ==
PROVIDERS: Emergency Provider Emergency Medicine; Family Provider Nurse Practitioner Adult Health; PCP Nurse Practitioner Adult Health
DX: R51 Headache (principal)
CPT/HCPCS: 70450; 96361; 96374; 96375; 99285; J7030; A4216

== ENCOUNTER 2019-01-07 16:21 | Emergency (ER) | payer OTHER, MEDICAID, SELFPAY ==
[2019-01-07 16:21] VITALS: BP 113/64; PULSE 95; RESP 16; TEMP 36.9; O2SAT 100; BMI 19.1
--- NOTE | 2019-01-07 16:45 | RAD_ITS ---
STUDY: X-RAY - RIGHT HAND REASON FOR EXAM: Female, 33 years old. Pain TECHNIQUE: 3 view(s) of the hand. COMPARISON: None. FINDINGS: Normal radiocarpal articulation. Normal distal radioulnar joint. Normal visualized carpal bones. Normal carpal articulations Normal carpometacarpal articulation of the thumb. Normal second through fifth carpometacarpal joints. Normal metacarpi. Normal metacarpophalangeal joint of the thumb. Normal interphalangeal joint of the thumb. Normal proximal and distal phalanges of the thumb. Normal metacarpophalangeal joints of the second through fifth fingers. Normal proximal and distal interphalangeal joints of the second through fifth fingers. Normal phalanges of the second through fifth fingers. There is mild soft tissue edema. RAD/Hand Min 3 Views IMPRESSION: Mild soft tissue edema, no fractures Electronically Signed: Michele Ha, at 17:05 EDT Tel , Service support ,
--- NOTE | 2019-01-07 17:41 | ED.VISSUMM ---
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 She is right-hand dominant. She complains of pain to her thumb and thenar eminence. No prior history or surgery. No other injuries. Physical Examination: Well-appearing young female. Vital signs are stable afebrile. HEENT exam unremarkable. Neck nontender. Lungs clear to auscultation bilaterally. Heart regular rhythm no murmur. Chest wall nontender. Abdomen soft nontender. Extremities moves all 4. Neurovascular intact. Right shoulder, elbow and wrist are nontender. Normal range of motion. The right thumb has mild swelling and tenderness to the thenar eminence. No deformity. She has limited flexion extension of her right thumb due to discomfort. All fingertips are neurovascularly intact with normal cap refill and touch sensation. Skin is intact. Test Results: Right hand x-ray no acute abnormality read by myself. And the radiologist. I did go over the films with the patient. Emergency Department Course and Treatment: Repeat exam doing well at 1740. Treatment Plan: Ice and Motrin. Return to work. Follow-up with corporate care as needed. Disposition: Discharge Impression: Right hand contusion This note was generated with Chemayi dictation software. It may contain incorrect words, spelling, and punctuation that were not noted in review of the chart prior to signing ED Disposition - Plan for ED Patient: Referrals: Neva Stanley NP-C [Primary Care Provider] -
--- NOTE | 2019-01-07 17:44 | ED.DEP ---
ED Disposition - Plan for ED Patient: Disposition: Home or Assisted Living Instructions: ED Contusion Upper Ext Referrals: Corporate,Care [GROUP OF PHYSICIANS] - 1 Week if not improving Additional Instructions: Ice elevate right hand to decrease pain and swelling. Motrin for pain and swelling.
--- NOTE | 2019-01-07 17:44 | ED.DCSUM_ITS ---
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 She is right-hand dominant. She complains of pain to her thumb and thenar eminence. No prior history or surgery. No other injuries. Physical Examination: Well-appearing young female. Vital signs are stable afebrile. HEENT exam unremarkable. Neck nontender. Lungs clear to auscultation bilaterally. Heart regular rhythm no murmur. Chest wall nontender. Abdomen soft nontender. Extremities moves all 4. Neurovascular intact. Right shoulder, elbow and wrist are nontender. Normal range of motion. The right thumb has mild swelling and tenderness to the thenar eminence. No deformity. She has limited flexion extension of her right thumb due to discomfort. All fingertips are neurovascularly intact with normal cap refill and touch sensation. Skin is intact. Test Results: Right hand x-ray no acute abnormality read by myself. And the radiologist. I did go over the films with the patient. Emergency Department Course and Treatment: Repeat exam doing well at 1740. Treatment Plan: Ice and Motrin. Return to work. Follow-up with corporate care as needed. Disposition: Discharge Impression: Right hand contusion This note was generated with Transit[employer] dictation software. It may contain incorrect words, spelling, and punctuation that were not noted in review of the chart rene or to signing ED Disposition - Plan for ED Patient: Referrals: Neva Stanley NP-C [Primary Care Provider] -
[2019-01-07 17:50] VITALS: PULSE 92; RESP 16; O2SAT 98
== END 2019-01-07 17:51 | disposition home or self-care (01) ==
PROVIDERS: Emergency Provider Emergency Medicine; Family Provider Nurse Practitioner Adult Health; PCP Nurse Practitioner Adult Health
DX: S60.221A Contusion of right hand, initial encounter (principal); X58.XXXA Exposure to other specified factors, initial encounter; Y93.89 Activity, other specified; Y92.230 Patient room in hospital as the place of occurrence of the external cause; Y99.0 Civilian activity done for income or pay
CPT/HCPCS: 73130; 99282

== ENCOUNTER → 2019-04-30 11:09 | Outpatient (CLI) | payer MEDICAID, SELFPAY ==
[2019-04-10 14:42] VITALS: BMI 19.1
[2019-04-30 15:41] LABS: Chlamydia Trachomatis by PCR Negative (Negative); Neisserai gonorrhoeae by PCR Negative (Negative); Probe Check PASS; Sample Adequacy Control PASS; Specimen Processing Control PASS
[2019-05-05 12:13] LABS: HPV APTIMA, High Risk Negative (Negative)
== END ==
PROVIDERS: Visit Provider Obstetrics & Gynecology
DX: Z12.4 Encounter for screening for malignant neoplasm of cervix (principal); Z11.3 Encounter for screening for infections with a predominantly sexual mode of transmission
CPT/HCPCS: 87491; 87591; 88175; G0145

== ENCOUNTER → 2019-07-26 08:53 | Outpatient (CLI) | payer OTHER, SELFPAY ==
[2019-07-03 09:44] VITALS: BMI 19.1
--- NOTE | 2019-07-26 08:55 | MRI_ITS ---
STUDY: MRI RIGHT SHOULDER REASON FOR EXAM: Female, 34 years old. Pain. Decreased range of motion. TECHNIQUE: Standardized fat and water weighted pulse sequences were obtained in all 3 orthogonal planes. COMPARISON: X-ray August 02, 2018. FINDINGS: Normal supraspinatus tendon. Normal infraspinatus tendon. Normal subscapularis tendon. Normal teres minor tendon. Normal supraspinatus muscle. Normal infraspinatus muscle. Normal subscapularis muscle. Normal teres minor muscle. Normal glenohumeral articulation. Normal humeral head and visualized proximal humerus. Normal biceps labral complex. Normal intracapsular long biceps tendon. Normal labrum. Normal capsulo- ligamentous complex. Normal rotator interval. Normal acromioclavicular articulation. There is a Type II morphology (curved) acromion, with a neutral orientation. There is no subacromial-subdeltoid bursal fluid. Normal visualized coracohumeral and coracoacromial ligaments. Normal quadrilateral space. Normal axillary space. Normal deltoid muscle. Normal trapezius muscle. MRI/Upper Ext Joint Only(Routine) IMPRESSION: Normal MRI of the shoulder. No rotator cuff tear or tear of the glenoid labrum. Electronically Signed: Andrey Regan MD at 13:23 EST , Service support ,
== END ==
PROVIDERS: Family Provider Nurse Practitioner Adult Health; PCP Nurse Practitioner Adult Health; Referring Provider Physician Assistant; Visit Provider Physician Assistant
DX: M75.51 Bursitis of right shoulder (principal)
CPT/HCPCS: 73221

== ENCOUNTER → 2019-10-16 13:45 | Outpatient (CLI) | payer MEDICAID, SELFPAY ==
[2019-10-09 09:17] VITALS: BMI 19.1
== END ==
PROVIDERS: PCP Nurse Practitioner Adult Health; Visit Provider Obstetrics & Gynecology
DX: R30.0 Dysuria (principal)
CPT/HCPCS: 87086

== ENCOUNTER → 2020-03-10 17:14 | Outpatient (CLI) | payer MEDICAID, SELFPAY ==
[2020-03-10 13:46] VITALS: BMI 19.1
== END ==
PROVIDERS: Referring Provider Physician Assistant; Visit Provider Physician Assistant
DX: Z20.828 Contact with and (suspected) exposure to other viral communicable diseases (principal)
CPT/HCPCS: 87635; G2023; U0003

== ENCOUNTER 2020-04-21 05:51 | Day surgery (SDC) | payer MEDICAID, SELFPAY ==
[2020-03-10 13:46] VITALS: BMI 19.1
[2020-04-21 06:23] VITALS: BP 104/66; PULSE 68; RESP 16; TEMP 37.6; O2SAT 100; BMI 20.7
[2020-04-21] MEDS: Lactated Ringers 1,000 ML 100 ML IV (06:57)
[2020-04-21] MEDS: Cefazolin 1 GM/50 ML BAG IV (07:21)
[2020-04-21] MEDS: Bupivacaine Mpf 0.5% 30 ML VIAL (07:37)
--- NOTE | 2020-04-21 07:39 | PCM.OPRPT ---
Report of Operation Date of Procedure: 04/21/20 Pre-Operative Diagnosis: Right carpal tunnel syndrome Post-Operative Diagnosis: Right carpal tunnel syndrome Surgery/Procedure Performed:: Right carpal tunnel release Description of Surgical Findings:: Complete release transverse carpal ligament business management specialist: None Type of Anesthesia:: Block,Westchase Anesthesiologist: Leonard Strong Special Medications: Ancef Estimated Blood Loss (mL): 3 Fluids Replaced: 600 mL crystalloid Description of Procedure: Brief history operative indications: 34-year-old female patient wished to proceed with right open carpal tunnel release. After discussing risks and benefits including but not limited to blood loss, DVTs, PEs, neurovascular damage, infection, hematoma and general risk of anesthesia, the patient demonstrated understanding wish to proceed with right open carpal tunnel release Procedure: On the date of the procedure, the patient's right upper extremity was marked in the preoperative area. Patient was taken back to the operating room, where the tourniquet was placed on the right upper extremity. Patient was given light sedation. All bony prominences are identified well-padded. Anesthesia assumed control C-spine and airway and remained in control throughout the remainder the procedure. Westchase block was administered by anesthesia. The right upper extremity was prepped in sterile fashion. Surgeon then scrub. Upon reentering the room, the right upper extremity was prepped in a standard orthopedic fashion. A timeout was called and everyone agreed upon the side, the site, the procedure to be performed, patient identity and antibiotics given. The incision was marked out. Incision was taken at the skin subtenons tissue fat down to fascia. Fascia was then lightly tethered until the median nerve was visible. A Blain was placed proximally and distally, and then scissors were placed proximally and distally to release the transverse carpal ligament. During the release the others were never completely closed. The Blain was then placed proximally and distally once more to verify the transverse carpal ligament had been adequately released. The wound was then copiously irrigated out with normal saline. Wound was then closed using 3-0 nylon suture. 10 cc of 50-50 mixture of 1% lidocaine and 0.5% Sensorcaine without epinephrine injection was given. Xeroform dressing was placed, sterile dressing was placed, compressive dressing was placed. Tourniquet was let down. Volar splint was placed. Patient was awakened by anesthesia and transferred to the PACU for recovery. Postoperative plan: The patient will follow up in 2 weeks for removal splint removal sutures. At that time if they are doing well they will follow-up as needed. - Complications No intraoperative complications - Admit VTE Documentation VTE Present on Admission: No VTE Mechan Device Prophylaxis: SCD's
[2020-04-21 07:45] VITALS: BP 104/66; BP 96/74; PULSE 71; RESP 16; TEMP 37; O2SAT 99
[2020-04-21 07:50] VITALS: BP 100/75; BP 104/66; PULSE 68; RESP 16; O2SAT 97
[2020-04-21 07:55] VITALS: BP 104/66; BP 107/77; PULSE 67; RESP 16; O2SAT 98
[2020-04-21 08:00] VITALS: BP 104/66; BP 105/70; PULSE 70; RESP 16; TEMP 37.1; O2SAT 97
[2020-04-21 08:41] VITALS: BP 104/66; PULSE 74; RESP 16; TEMP 36.6; O2SAT 98
== END 2020-04-21 08:48 | disposition home or self-care (01) ==
LOC: SDC 05:52 → AC 05:53
PROVIDERS: Anesthesiology; Referring Provider Specialist; Visit Provider Specialist
PROC: (CPT 64721; principal; 2020-04-21 07:15)
DX: G56.01 Carpal tunnel syndrome, right upper limb (principal)
CPT/HCPCS: 64721; 87635; 94799; C9803; J7120; A4216; U0003

== ENCOUNTER → 2020-05-11 09:10 | Outpatient (CLI) | payer MEDICAID, SELFPAY ==
[2020-04-21 06:23] VITALS: BMI 20.7
[2020-05-11 12:58] LABS: Follicle Stimulating Hormone 11.5 mIU/mL; Thyroid Stim Hormone (TSH) 0.71 uIU/mL (0.358-3.74)
== END ==
PROVIDERS: Visit Provider Obstetrics & Gynecology
DX: N95.1 Menopausal and female climacteric states (principal)
CPT/HCPCS: 36415; 83001; 84443

== ENCOUNTER → 2020-05-25 12:28 | Outpatient (CLI) | payer MEDICAID, SELFPAY ==
[2020-05-25 11:34] VITALS: BMI 20.6
[2020-05-25 13:16] LABS: Mucous, Urine 0 SEEN /hpf (<or=2+)
[2020-05-25 13:31] LABS: Color, Urine Yellow (Yellow); Glucose, Dipstick Normal (Normal); Ketone-Dipstick Negative (Negative); Leukocyte Esterase-Dipstick 500 /ul (Negative); Nitrite-Dipstick Negative (Negative); Occult Blood-Urine 25 /ul (Negative); Protein-Dipstick Negative (Negative); Urine Bilirubin Dipstick Negative (Negative); Urine Clarity Sl. Cloudy (Clear); Urine Urobilinogen Normal (Normal)
[2020-05-25 13:40] LABS: Bacteria RARE /hpf (None Seen); Red Blood Cells-Urine 0-5 SEEN /hpf (0-5); Squamous Epithelial Cells - UA 0-5 SEEN /hpf (5-10); White Blood Cells 25-50 SEEN /hpf (0-5)
== END ==
PROVIDERS: Referring Provider Physician Assistant Surgical; Visit Provider Physician Assistant Surgical
DX: R35.0 Frequency of micturition (principal)
CPT/HCPCS: 81001; 87086; 87088; 87186

== ENCOUNTER → 2020-08-18 15:20 | Outpatient (CLI) | payer MEDICAID, SELFPAY | PROVIDERS: Visit Provider Physician Assistant Surgical | DX: R68.89 Other general symptoms and signs (principal) | CPT/HCPCS: 87635; U0003 ==

== ENCOUNTER 2020-12-27 18:00 | Outpatient (RCR) | payer MEDICAID, SELFPAY ==
--- NOTE | 2020-11-18 10:54 | HP.OTEVAL_ITS ---
Patient's Visit Information CRICKET POPE is a 35 year old F, referred to Occupational Therapy by Dr. Gordo Bob MD, with a diagnosis of CTS. Date of Evaluation: 11/18/20 Occupational Therapist: Gricelda Rodriguez, OTR/Evans, CHT - Subjective This 35 year old female was seen for OT eval with dx of CTS. pt states she has noticed she has had tingling for a few months since sx. pt states DOS [id number]. pt states she had issues with tingling numbness since 2017. pt states she was painful and uncomfortable and couldn't sleep. Pt states tingling goes up her entire arm- pt does have hx of right shoulder injury. 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 symptoms increased after starting work at a [employer] in Sep. pt would like to decrease her symptoms and get her strength back. - Pain right hand 4 Pain Intensity Range: 1, 4 - ROM Shoulder: R/L WNL Elbow: R/L WNL Wrist: right 40/60 left 70/65 ROM Comments: pt demo with poor posture - Strength Rotational Moulding Operator: right 20# left 50# Lateral Pinch: right 1# left 8# Tripod Pinch: right 2# left 10# Tip-to-Tip Pinch: right 2# left 6# - Sensation Thumb: right 2.83 left 2.83 Index: right 2.83 left 2.83 Middle: right 2.83 left 2.83 Ring: right 2.83 left 2.83 Little: right 2.83 left 2.83 Sensation Comments: pt reports sensation of tinling/numbness of all digits of right hand - Special Tests Median Nerve Compression Test: postitve - Quick DASH-Disab of Arm,Shoulder& Hand Quick DASH Score: 43.3325 - Carpal Tunnel Syndrome Total Score of Symptom & Functional Sections: 44 - Goals Goal:: pt will demo a increase in right hand strenght to 45# or greater to increase pts functional strength to perform ADls and IADLs IND by d/c Goal:: pt will demo a increase in right wrist ROM by 20* or greater to increase pts ind. with ADls and IADLs by d/c Goal:: pt will report pain no greater than 1/10 with use of right UE with ADLs and IADLs Goal:: pt will demo good posture 80% of the time during sessions. pt will demo understanding of posture strengthening by end of 4th visit. Goal:: pt will report a decrease in tingling sensation by 70% or more by d/c to increase sleep and performance of ADLs and IADLs by d/c - Rehabilitation General Assessment: pt demo with symptoms of numbness/tingling and weakness of right UE. this limits pt with ADLS and IADLs. pt would benefit from skilled OT services 1-2 x week for 4 weeks to decrease symptoms of CTS, initiate posture correction/strengthening and ed. on nerve glides to return pt to PLOF. pt demo understanding of POC and agrees. Rehabilitation Potential: Good - Anticipated Interventions A/AAROM/PROM, Strengthening, Triggerpoint Release, Modalities, Joint Protection/Energy Conservation, Ergonomic Education - Visit Plan Frequency: 1-2x /Week Duration: 4 Weeks TEXT: Thank you for the opportunity to evaluate your patient. For Medicare and Medicare HMO plans, please review the plan of care and approve it. It will need to be FAXED BACK to us at [phone] for Medicare purposes. Please let me know if there are questions or concerns regarding this plan of care. Physician Signature: Date:
--- NOTE | 2020-12-27 18:33 | HP.OTDCSUM_ITS ---
It has been my pleasure to treat CRICKET POPE under orders from Dr. Gordo Bob MD, for the diagnosis of CTS for a total of 8 visit(s). Please see the following information for a summary of their discharge status. % Improvement: 30 Objective/Function: right 55/ 70 increase from 40/60. 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 right lateral pinch 8# initial 1#. right tripod pinch 12# increase from 2#. right tip pinch 10# this is increase from 2#. pt made gains with ROM and strength but continues to report she drops items Patient Goals: Decrease Tingling/Numbness Goal:: pt will demo a increase in right hand strenght to 45# or greater to increase pts functional strength to perform ADls and IADLs IND by d/c Goal:: pt will demo a increase in right wrist ROM by 20* or greater to increase pts ind. with ADls and IADLs by d/c Goal:: pt will report pain no greater than 1/10 with use of right UE with ADLs and IADLs Goal:: pt will demo good posture 80% of the time during sessions. pt will demo understanding of posture strengthening by end of 4th visit. Goal:: pt will report a decrease in tingling sensation by 70% or more by d/c to increase sleep and performance of ADLs and IADLs by d/c Plan: return to for further testing indicated and will have done end of December. and will see January 19, 2021 Discharge Comments: pt has made gains with her ROM and strength following a right CTR- therapist has ed. pt on the nerve does take some time to heal 15-18 months- pts pain and weakness continue to make work tasks and home tasks difficult- pt to return to dr for further testing having MRI in december. therapist advised pt to cont with scar mtg. use of right UE as able - use visual compensa tion for grasp and holding onto objects. pt demo understanding and agree to POC. If there are questions or concerns regarding this patient's occupational therapy, please fell free to call me at [phone]. Thank you for the referral of this patient. Sincerely, Gricelda Rodriguez, OTR/L, CHT
== END 2020-12-27 19:00 | disposition home or self-care (01) ==
LOC: OT 18:00
PROVIDERS: Referring Provider Specialist; Visit Provider Specialist
DX: G56.01 Carpal tunnel syndrome, right upper limb (principal)
CPT/HCPCS: 97035; 97110; 97166; 97530

== ENCOUNTER 2020-12-30 18:00 | Outpatient (RCR) | payer MEDICAID, SELFPAY ==
--- NOTE | 2020-12-30 18:49 | HP.PTEVAL ---
Patient's Visit Information CRICKET POPE is a 35 year old F referred to Physical Therapy by Dr. Gordo Bob MD with a diagnosis of cervical radiculopathy. Date of Evaluation: 12/30/20 Physical Therapist: Cody Menchaca, DPT, OCS, CSCS - Visit Plan Frequency: 2-3x /Week Duration: 4-6 Weeks Plan: 2-3x/week for 2-4 weeks for... 1. Marva based c/s ret and ext with Op and mobs as needed, ROM ext lower c/s. 2. strength neck adn posture. 3. STM as needed to tightness in neck. MH. Posture adn body mechanics instruct. - Subjective R arm has hurt for 3 months. Had CTS prior. 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 Still has some numbness and tingling in arm R but it is now going all the way up. Pain and numb and tingling in R UE, achy sore and weak. R arm gets to 7/10 if she is lifting patients at work. No real neck pain. Hs some night discomfort but not painful. No left arm symptoms. Is R handed and feels weak throughout. sleep is OK for the most part. Gets up alot to pee and then getting comfortable may be tough. Lying on R side hurts. 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 Basic ADLs are getting done at home. Activities at home have son taking on chores like mowing as they can bother her. He also does dishes. Activities worse than sitting. Enjoys being outside adn stilld oes that. - Pain R arm. Pain Intensity (Out of 10): 0 Pain Intensity Range: 0, 7 - Objective Posture is forward head and shoulder blades, loss of cervical lordosis is evident. Tender to UT and B cervical paraspinals. - c/s compression test. sensation UE WNL to gross light touch right now. reflexes 2/3 bi and tri. - radial and ulnar nerve tests, - median nerve test. strength UE symmetrical at 4- without myotomal abnormalities. cervical aROM ext painful and 30, retraction limited, rotation 70 without pain, SB 22 without pain. tightness palpable in UT and lev scap. repeated protrusion casues soreness in back of neck post performance. retraction repeated PDM and improved motion. ret/ext with OP: PDM, much increased motion. Pt avoids c/s retraction with all movements and lower c/s ext. - Goals Goal 1:: Full cervical aROm without pain Goal Time Frame: 4-6 Weeks Goal 2:: Right arm symptoms abolished. Goal Time Frame: 4-6 Weeks Goal 3:: Pt feel 90% back to normal adn sleep without waking Goal Time Frame: 4-6 Weeks Goal 4:: Wrok full duty without pain Goal Time Frame: 4-6 Weeks - Rehabilitation Potential Physical Therapy Diagnosis: Cervical radic, likely discal. Rehabilitation Potential: Fair - Anticipated Interventions Patient/Client Instruction: Educate patient on: Condition, Plan of Care For the Purpose of:: To decrease pain, To increase ROM, To improve muscle performance and motor function, To increase tolerance to activity/condition/position Therapeutic Exercise to Include: Strength training, Flexibilty training, Passive ROM, Active ROM, Marva Exercises For the Purpose of:: To decrease pain, To increase ROM, To improve muscle performance and motor function, To increase tolerance to activity/condition/position, To improve ability of physical actions for home/community/work/leisure Manual Therapy Techniques to Include: Mobilization For the Purpose of:: To increase ROM Thermo therapy (hot pack): Yes For the Purpose of:: To improve nutrient delivery to tissue Thank you for the opportunity to evaluate your patient. For Medicare and Medicare HMO plans, please review the plan of care and approve it. It will need to be FAXED BACK to us at [phone] for Medicare purposes. For Medicare only, by signing this I certify the plan of care. Please let me know if there are questions or concerns regarding this plan of care. Physician Signature: Date:
--- NOTE | 2021-03-01 17:42 | HP.PT.NRP ---
CRICKET POPE was seen in my office for initial evaluation on 12/30/20. The following Plan of Care was established for this patient: Initial Frequency: 2-3x /Week Initial Duration: 4-6 Weeks Patient/Client Instruction: Educate patient on: Condition, Plan of Care For the Purpose of:: To decrease pain, To increase ROM, To improve muscle performance and motor function, To increase tolerance to activity/condition/position Therapeutic Exercise to Include: Strength training, Flexibilty training, Passive ROM, Active ROM, Carlo Exercises For the Purpose of:: To decrease pain, To increase ROM, To improve muscle performance and motor function, To increase tolerance to activity/condition/position, To improve ability of physical actions for home/community/work/leisure Manual Therapy Techniques to Include: Mobilization For the Purpose of:: To increase ROM Thermo therapy (hot pack): Yes For the Purpose of:: To improve nutrient delivery to tissue This patient was last seen in our office 12/30/20. Pertinent comments regarding their Physical therapy will appear below: Pt seen for initial evaluation and POC established. Pt neglected to schedule or attend any of those visits. at this point, it has been over 2 months adn I will discontinue due to nonattendance. At this point I will be discontinuing this patient from physical therapy. I would be happy to see this patient again in the future if found appropriate by the physician. Thank you! Cody Menchaca, DPT, OCS, CSCS
== END 2020-12-30 19:00 | disposition home or self-care (01) ==
LOC: PT 18:00
PROVIDERS: Visit Provider Specialist
DX: M54.12 Radiculopathy, cervical region (principal)
CPT/HCPCS: 97110; 97162

== ENCOUNTER 2021-04-09 19:52 | Emergency (ER) | payer MEDICAID, SELFPAY ==
[2021-04-09 19:53] VITALS: BP 95/59; PULSE 90; RESP 6; TEMP 36.1; O2SAT 100; BMI 20.5
--- NOTE | 2021-04-09 20:42 | CT_ITS ---
STUDY: CT ABDOMEN AND PELVIS WITH CONTRAST REASON FOR EXAM: Female, 35 years old. Right upper and right lower quadrant pain , nausea -- IV PO Contrast RADIATION DOSAGE (If Supplied By Facility): CTDIvol = ( 12.19 ) mGy, DLP = ( 359.42 ) mGycm TECHNIQUE: Transaxial images were obtained from the dome of the diaphragm to the symphysis pubis without oral contrast. Oral and amp; IV Readi-CAT and amp; 100mL Isovue-370 was administered. Sagittal and coronal images were reconstructed. Individualized dose optimization techniques were used for this CT. COMPARISON: None. FINDINGS: The visualized lung bases are unremarkable. The visualized portions of the heart are within normal limits. Normal liver. Normal gallbladder and extrahepatic biliary system. Normal spleen. Normal pancreas. Normal bilateral adrenal glands. Normal right kidney. Normal left kidney. Normal visualized stomach. Normal small intestine. Normal colon. The appendix is visualized and appears normal. Normal abdominal aorta. Normal inferior vena cava. Normal retroperitoneum. Normal urinary bladder. There is absence of the uterus consistent with a prior hysterectomy. Right corpus luteum cyst. Normal abdominal wall. There are diffuse degenerative changes of the visualized lumbar spine. CT/Abdomen/Pelvis WITH Contrast IMPRESSION: Right corpus luteum cyst. No acute abnormal finding in the abdomen or pelvis. Electronically Signed: Gage Guzman MD at 23:02 EDT Tel , Service support ,
--- NOTE | 2021-04-09 20:44 | EDS_ITS ---
HPI HPI - GI History of Present Illness Chief Complaint: Abd Pain Informant: patient Abdominal Pain/Flank Pain Onset: Weeks (1) Timing: Continuous Quality: Aching, Burning and Dull Location: RUQ, RLQ and Right Flank Worsened by: - (Sleeping on her right side) Relieved by: Nothing Nausea/Vomiting/Emesis GI Symptom: Positive for Nausea; Negative for Vomiting Diarrhea/Melena/Hematochezia GI Symptom: Negative for Diarrhea, Melena and Hematochezia Associated Symptoms Associated Symptoms: Negative for Dysuria, Frequency and Hematuria Narrative Narrative: Patient presents with abdominal pain that has been constant for the past week. Patient states pain is worse of the right upper quadrant but also has some pain in the right lower quadrant. Patient admits to nausea but denies any vomiting. Patient states her pain is worse whenever she sleeps on her right side. Patient describes her pain as aching, burning, and dull. Patient states the pain radiates into her back. Patient denies any diarrhea, melena, or hematochezia. Patient denies any urinary complaints. [facility] Medical History (Updated 04/09/21 @ 23:[address] Cody Sanchez DO) Hernia Home Medications multivitamin 1 tab PO DAILY 03/05/17 [History Last Taken 01/07/19] valacyclovir 500 mg PO PRN PRN 04/12/20 [History Last Taken Unknown] triamcinolone acetonide 0.5 % topical ointment 1 applic TOPICAL TID PRN #60 g 01/08/21 [Rx Last Taken Unknown] Allergy/AdvReac Type Severity Reaction Status Date / Time hydrocodone bitartrate Allergy Unknown Verified 04/09/21 19:53 [From Vicodin] lactose Allergy Upset Verified 04/09/21 19:53 Stomach Surgical History History of partial hysterectomy History of tonsillectomy [place] teeth extracted Social History Smoking Status: Never smoker alcohol intake: never ROS ROS ED Constitutional Constitutional ED: Denies chills or fever(s) Eyes Eyes: Denies blurry vision or change in vision ENT ENT ED: Denies rhinorrhea or sore throat Cardiovascular Cardiovascular: Denies chest pain or palpitations Respiratory/Chest Respiratory/Chest: Denies cough or dyspnea Gastrointestinal Gastrointestinal: Reports abdominal pain and nausea; Denies diarrhea or vomiting Genitourinary Genitourinary ED: Denies dysuria or hematuria Musculoskeletal Musculoskeletal: Reports back pain; Denies neck pain Integumentary Denies abscess or rash Neurologic Neurologic: Denies headache(s) or weakness Allergic/Immunologic Allergic/Immunologic ED: Denies mouth swelling or urticaria EXAM Physical Exam Const Vital Signs: 04/09/21 19:53 Temperature 97 F L Temperature Source Temporal Pulse Rate 90 Respiratory Rate 6 L Blood Pressure 95/59 L Blood Pressure Mean 71 Pulse Ox 100 Oxygen Delivery Method Room Air Positive well nourished and well developed General Appearance ED: well developed HEENT Reports moist mucous membranes Neck supple and no JVD Resp normal respiratory effort and clear to auscultation bilaterally Cardio regular rate, regular rhythm and no murmurs GI normal to inspection, nondistended, normoactive bowel sounds and non-distended Auscultation: normoactive bowel sounds Palpation: soft and tender RLQ (Mild) and RUQ; Negative for guarding or rebound tenderness present Back/Spine General Back: CVA tenderness right Extremity normal to inspection General Extremety ED: Negative for edema or tenderness General Extremity: Negative for edema Neuro oriented x3, CN's II-XII intact bilaterally and no sensory deficits noted Sensorium / Orientation: alert Motor Exam: strength 5/5 throughout Psych mental status grossly normal Skin no rashes or lesions noted MDM MDM MDM Narrative Medical decision making narrative: Patient was given IV fluids and morphine. CBC was within normal limits. Comprehensive metabolic profile was normal. Urinalysis does not show any evidence of urinary tract infection. CT scan of the abdomen and pelvis was obtained. There is a right corpus luteum cyst. There is no other acute abnormality noted. Patient was advised of her findings. Patient was instructed to eat a bland diet. Patient was instructed to follow- up with her primary care physician in 5 to 7 days. Patient understood and was agreeable with the plan. All questions were answered. Lab Data Attestation: I reviewed the patient's lab results. Labs: Laboratory Results - last 24 hr 04/09/21 04/09/21 04/09/21 20:10 20:10 21:27 WBC 6.6 RBC 4.66 Hgb 15.1 H Hct 43.2 MCV 92.7 MCH 32.4 H MCHC 35.0 RDW Std Deviation 40.9 RDW Coeff of Cierra 11.9 Plt Count 153 MPV 11.0 Immature Gran % (Auto) 0.300 Neut % (Auto) 53.4 Lymph % (Auto) 36.0 [place] % (Auto) 8.1 Eos % (Auto) 1.7 Baso % (Auto) 0.5 Absolute Neuts (auto) 3.5 Absolute Lymphs (auto) 2.36 Nucleated RBC % 0 Platelet Estimate ADEQUATE Plt Morphology Comment LARGE RBC Morphology N CHROM Anisocytosis RARE Macrocytosis RARE Sodium 141 Potassium 3.6 Chloride 107 Carbon Dioxide 24.0 Anion Gap 10 BUN 13 Creatinine 0.74 Estim Creat Clear Calc 92.02 Est GFR (MDRD) Af Amer 113 Est GFR (MDRD) Non-Af 93 BUN/Creatinine Ratio 17.5 Glucose 72 L Calcium 9.3 Total Bilirubin 0.50 AST 17 ALT 24 Alkaline Phosphatase 41 L Total Protein 7.2 Albumin 4.2 Globulin 3.0 Albumin/Globulin Ratio 1.4 Lipase 115 Urine Color Yellow Urine Clarity Clear Urine pH 6.0 Ur Specific [place] 1.020 Urine Protein 15 H Urine Glucose (UA) Normal Urine Ketones 150 A* Urine Occult Blood Negative Urine Nitrite Negative Urine Bilirubin Negative Urine Urobilinogen Normal Ur Leukocyte Esterase Negative Urine RBC 0 SEEN Urine WBC 0-5 SEEN Ur Squamous Epith Cells 0-5 SEEN Urine Bacteria 0 SEEN Urine Mucus 0 SEEN Radiography Diagnostic Testing: Radiology Impression Abdomen/Pelvis CT 04/09/21 20:42 IMPRESSION: Right corpus luteum cyst. No acute abnormal finding in the abdomen or pelvis. Electronically Signed: Gage Guzman MD at 23:02 EDT Tel , Service support , Discharge Plan Triage Chief Complaint: Abd Pain ED Provider: Cody Sanchez Dx/Rx/DC Orders Clinical Impression: Abdominal pain Instructions: ED Abdominal Pain Unkn Cause Fem Prescriptions: No Action triamcinolone acetonide 0.5 % ointment 1 applic topical TID PRN (Reason: contact dermatitis) Qty: 60 RF: 0 multivitamin 1 EACH tablet 1 tab PO DAILY RF: 0 valacyclovir 500 MG tablet 500 mg PO PRN PRN (Reason: OUT BREAK) RF: 0 Primary Care Provider: Care Physician,No Primary Referrals: Ney Simms MD [STAFF PHYSICIAN] - 3-5 Days Care Physician,No Primary [Primary Care Provider] - Disposition Disposition: Home, Self Care
[2021-04-09] MEDS: Morphine 4 MG/ML Syringe IV (21:01)
[2021-04-09] MEDS: 0.9% Normal Saline 1,000 ML 1000 ML IV (21:01)
[2021-04-09 21:08] LABS: Absolute Lymphocyte Count 2.36 X10^3/uL (0.83-4.51); Absolute Neutrophil Count 3.5 X10^3/uL (2.0-7.7); Basophil# 0.03 X10^3/uL; Basophil% 0.5 % (0-1); Eosinophil# 0.11 X10^3/uL; Eosinophils% 1.7 % (0-5); Hematocrit 43.2 % (37-47); Hemoglobin 15.1 g/dL (12.0-15.0); Lymphocyte # 2.36 X10^3/ul (0.83-4.51); Mean Corpuscular Hgb 32.4 pg (27.0-32.0); Mean Corpuscular Volume 92.7 fL (81-99); Monocyte# 0.53 X10^3/uL; Monocyte% 8.1 % (0-10); NRBC Flagged by Analyzer 0 % (0-5); Neutrophil % 53.4 % (47-70); POSITIVE COUNT YES; Platelet Count 153 K/mm3 (150-450); RBC Distribution Width CV 11.9 % (11.6-14.6); RBC Distribution Width SD 40.9 fl (35.1-43.9); Red Blood Count 4.66 M/mm3 (4.2-5.4); White Blood Count 6.6 K/mm3 (4.4-11.0)
[2021-04-09 21:22] LABS: ALB/GLOB Ratio 1.4 RATIO (0.9-2.4); AST(SGOT) 17 U/L (15-37); Alanine Aminotransfer ALT/SGPT 24 U/L (13-56); Albumin, Serum 4.2 g/dL (3.2-5.0); Alkaline Phosphatase 41 U/L (45-117); Anion Gap 10 (5-15); BUN 13 mg/dL (7-18); BUN/Creat Ratio 17.5 RATIO (10-20); Calcium,Total 9.3 mg/dL (8.5-10.1); Chloride 107 mmol/L (98-107); Creatinine, Serum 0.74 mg/dL (0.55-1.02); EST Glomerular Filtration Rate 93 mL/min (>60); Est Glom Filt Rate - Afr Amer 113 mL/min (>60); Estimated Creatinine Clearance 92.02 ml/min; Glucose 72 mg/dL (74-106); Lipase 115 U/L (73-393); Potassium 3.6 mmol/L (3.5-5.1); Protein, Total 7.2 g/dL (6.4-8.2); Sodium Level 141 mmol/L (136-145)
[2021-04-09 21:26] LABS: Differential Indicated SCAN CRITERIA MET
[2021-04-09 21:27] LABS: Anisocytosis RARE; Platelet Estimate ADEQUATE (ADEQ); Platelet Morphology LARGE
[2021-04-09 21:28] LABS: Macrocytosis RARE; Red Cell Morphology N CHROM NORMAL (NORM C&C)
[2021-04-09 21:35] LABS: Bacteria 0 SEEN /hpf (None Seen); Mucous, Urine 0 SEEN /hpf (<or=2+); Red Blood Cells-Urine 0 SEEN /hpf (0-5)
[2021-04-09 21:43] LABS: Color, Urine Yellow (Yellow); Glucose, Dipstick Normal (Normal); Leukocyte Esterase-Dipstick Negative /ul (Negative); Nitrite-Dipstick Negative (Negative); Occult Blood-Urine Negative /ul (Negative); Protein-Dipstick 15 mg/dl (Negative); Urine Bilirubin Dipstick Negative (Negative); Urine Clarity Clear (Clear); Urine Urobilinogen Normal (Normal)
[2021-04-09 21:45] LABS: Ketone-Dipstick 150 mg/dl (Negative)
[2021-04-09 21:49] LABS: Squamous Epithelial Cells - UA 0-5 SEEN /hpf (5-10); White Blood Cells 0-5 SEEN /hpf (0-5)
[2021-04-09 23:39] VITALS: BP 97/58; RESP 16
== END 2021-04-09 23:41 | disposition home or self-care (01) ==
PROVIDERS: Emergency Provider Emergency Medicine
DX: R10.31 Right lower quadrant pain (principal); R11.0 Nausea; N83.11 Corpus luteum cyst of right ovary
CPT/HCPCS: 74177; 80053; 81001; 83690; 85025; 99283; J7030; Q9967

== ENCOUNTER → 2021-04-29 16:18 | Outpatient (CLI) | payer MEDICAID, SELFPAY ==
[2021-04-29 16:30] LABS: Mucous, Urine 0 SEEN /hpf (<or=2+); Red Blood Cells-Urine 0 SEEN /hpf (0-5); White Blood Cells 0 SEEN /hpf (0-5)
[2021-04-29 17:34] LABS: Color, Urine Straw (Yellow); Glucose, Dipstick Normal (Normal); Ketone-Dipstick Negative (Negative); Leukocyte Esterase-Dipstick Negative /ul (Negative); Nitrite-Dipstick Negative (Negative); Occult Blood-Urine Negative /ul (Negative); Protein-Dipstick Negative (Negative); Urine Bilirubin Dipstick Negative (Negative); Urine Clarity Sl. Cloudy (Clear); Urine Urobilinogen 1 mg/dl (Normal)
[2021-04-29 17:47] LABS: Bacteria RARE /hpf (None Seen); Squamous Epithelial Cells - UA 0-5 SEEN /hpf (5-10)
== END ==
PROVIDERS: PCP Internal Medicine; Referring Provider Nurse Practitioner Family; Visit Provider Nurse Practitioner Family
DX: R35.0 Frequency of micturition (principal); R10.9 Unspecified abdominal pain
CPT/HCPCS: 36415; 81001; 87086

== ENCOUNTER → 2021-07-23 09:41 | Outpatient (CLI) | payer MEDICAID, SELFPAY ==
[2021-07-23 10:41] LABS: Cholesterol 141 mg/dL (200); High Density Lipoprotein 64 mg/dL; Triglycerides 49 mg/dL; Very Low Density Lipoprotein 10 mg/dL (5-40)
== END ==
PROVIDERS: PCP Internal Medicine; Referring Provider Internal Medicine; Visit Provider Internal Medicine
DX: Z00.00 Encounter for general adult medical examination without abnormal findings (principal)
CPT/HCPCS: 36415; 80061

== ENCOUNTER → 2022-04-19 | Outpatient (CLI) | payer MEDICAID, SELFPAY ==
[2022-04-19 16:20] LABS: Mucous, Urine 0 SEEN /hpf (<or=2+); Red Blood Cells-Urine 0 SEEN /hpf (0-5); White Blood Cells 0 SEEN /hpf (0-5)
[2022-04-19 16:45] LABS: Absolute Lymphocyte Count 1.64 X10^3/uL (0.83-4.51); Absolute Neutrophil Count 3.1 X10^3/uL (2.0-7.7); Basophil# 0.03 X10^3/uL; Basophil% 0.6 % (0-1); Eosinophil# 0.18 X10^3/uL; Eosinophils% 3.4 % (0-5); Hematocrit 44.5 % (37-47); Hemoglobin 15.3 g/dL (12.0-15.0); Lymphocyte # 1.64 X10^3/ul (0.83-4.51); Lymphocyte % 30.8 % (19-41); Mean Corp Hgb Conc 34.4 g/dL (32-36); Mean Corpuscular Hgb 32.6 pg (27.0-32.0); Mean Corpuscular Volume 94.9 fL (81-99); Monocyte# 0.36 X10^3/uL; Monocyte% 6.8 % (0-10); NRBC Flagged by Analyzer 0 % (0-5); Neutrophil # 3.11 X10^3/uL (2.7-7.7); Neutrophil % 58.2 % (47-70); Platelet Count 240 K/mm3 (150-450); RBC Distribution Width CV 12.3 % (11.6-14.6); RBC Distribution Width SD 42.5 fl (35.1-43.9); Red Blood Count 4.69 M/mm3 (4.2-5.4); White Blood Count 5.3 K/mm3 (4.4-11.0)
[2022-04-19 16:53] LABS: Color, Urine Yellow (Yellow); Glucose, Dipstick Normal (Normal); Ketone-Dipstick Negative (Negative); Leukocyte Esterase-Dipstick 25 /ul (Negative); Nitrite-Dipstick Negative (Negative); Occult Blood-Urine Negative /ul (Negative); Protein-Dipstick Negative (Negative); Urine Bilirubin Dipstick Negative (Negative); Urine Clarity Clear (Clear); Urine Urobilinogen 1 mg/dl (Normal)
[2022-04-19 17:08] LABS: Bacteria 1+ /hpf (None Seen); Squamous Epithelial Cells - UA 0-5 SEEN /hpf (5-10)
[2022-04-19 17:28] LABS: Progesterone Level 0.33 ng/mL (See Comment); Vitamin D,25 Hydroxy 31.1 ng/mL
[2022-04-19 19:15] LABS: Estradiol 113.1 pg/mL
[2022-04-19 20:39] LABS: ALB/GLOB Ratio 1.1 RATIO (0.9-2.4); AST(SGOT) 10 U/L (15-37); Alanine Aminotransfer ALT/SGPT 20 U/L (13-56); Albumin, Serum 3.8 g/dL (3.2-5.0); Alkaline Phosphatase 49 U/L (45-117); Anion Gap 6 (5-15); BUN 10 mg/dL (7-18); BUN/Creat Ratio 14.5 RATIO (10-20); Calcium,Total 8.7 mg/dL (8.5-10.1); Chloride 106 mmol/L (98-107); Creatinine, Serum 0.69 mg/dL (0.55-1.02); EST Glomerular Filtration Rate 101 mL/min (>60); Est Glom Filt Rate - Afr Amer 122 mL/min (>60); Follicle Stimulating Hormone 3.9 mIU/mL; Globulin 3.4 g/dL (2.2-4.2); Glucose 81 mg/dL (74-106); Luteinizing Hormone 9.3 mIU/mL; Protein, Total 7.2 g/dL (6.4-8.2); Sodium Level 139 mmol/L (136-145); T4 Free Direct 0.94 ng/dL (0.76-1.46); Thyroid Stim Hormone (TSH) 0.89 uIU/mL (0.358-3.74)
[2022-04-25 09:15] LABS: Estrogen, Total, Serum 207 pg/mL (.)
== END | disposition home or self-care (01) ==
LOC: BIMLAB 16:10
PROVIDERS: PCP Internal Medicine; Referring Provider Physician Assistant; Visit Provider Physician Assistant
DX: Z00.00 Encounter for general adult medical examination without abnormal findings (principal); R23.2 Flushing; G43.109 Migraine with aura, not intractable, without status migrainosus; E55.9 Vitamin D deficiency, unspecified
CPT/HCPCS: 36415; 80053; 81001; 82306; 82670; 82672; 83001; 83002; 84144; 84439; 84443; 85025

== ENCOUNTER 2022-10-17 09:45 | Emergency (ER) | payer MEDICAID, SELFPAY ==
[2022-10-17] VITALS (7 sets, daily range): BP systolic 101–108; BP diastolic 54–82; PULSE 75–90; RESP 16–18; TEMP 36.7–37.3; O2SAT 100; BMI 22.9
[2022-10-17] MEDS: Ipratropium/Albuterol Sulfate 3 ML AMPUL.NEB INHALATION (11:06)
[2022-10-17] MEDS: 0.9% Normal Saline 1,000 ML 1000 ML IV (11:28)
[2022-10-17 11:38] LABS: Mucous, Urine 0 SEEN /hpf (<or=2+); Red Blood Cells-Urine 0 SEEN /hpf (0-5); White Blood Cells 0 SEEN /hpf (0-5)
[2022-10-17 11:39] LABS: Absolute Lymphocyte Count 1.79 X10^3/uL (0.83-4.51); Basophil# 0.03 X10^3/uL; Basophil% 0.2 % (0-1); Eosinophil# 0.06 X10^3/uL; Eosinophils% 0.5 % (0-5); Hemoglobin 15.9 g/dL (12.0-15.0); Lymphocyte # 1.79 X10^3/ul (0.83-4.51); Lymphocyte % 14.4 % (19-41); Mean Corp Hgb Conc 33.8 g/dL (32-36); Mean Corpuscular Hgb 31.9 pg (27.0-32.0); Mean Corpuscular Volume 94.2 fL (81-99); Mean Platelet Vol. 9.6 fl (6.2-12.0); Monocyte# 0.52 X10^3/uL; Monocyte% 4.2 % (0-10); NRBC Flagged by Analyzer 0 % (0-5); Neutrophil # 9.96 X10^3/uL (2.7-7.7); Neutrophil % 80.3 % (47-70); Platelet Count 249 K/mm3 (150-450); RBC Distribution Width CV 11.8 % (11.6-14.6); RBC Distribution Width SD 40.7 fl (35.1-43.9); Red Blood Count 4.99 M/mm3 (4.2-5.4); White Blood Count 12.4 K/mm3 (4.4-11.0)
[2022-10-17 11:40] LABS: Color, Urine Yellow (Yellow); Glucose, Dipstick Normal (Normal); Ketone-Dipstick Negative (Negative); Leukocyte Esterase-Dipstick Negative /ul (Negative); Nitrite-Dipstick Negative (Negative); Occult Blood-Urine Negative /ul (Negative); Protein-Dipstick Negative (Negative); Specific Gravity, Urine 1.005 (1.002-1.030); Urine Bilirubin Dipstick Negative (Negative); Urine Clarity Sl. Cloudy (Clear); Urine Urobilinogen Normal (Normal)
--- NOTE | 2022-10-17 11:45 | RAD_ITS ---
STUDY: X-RAY CHEST REASON FOR EXAM: Female, 37 years old. Cough TECHNIQUE: PA and lateral views of the chest. COMPARISON: None. FINDINGS: The lungs are clear and expanded. There is no demonstrated pleural abnormality. Normal size heart. Normal mediastinum and olivia. Normal visualized pulmonary arteries. Normal visualized aortic arch and descending thoracic aorta. Normal visualized thoracic spine. Normal visualized ribs, clavicles, and shoulders. There is no demonstrated abnormality of the visualized soft tissue structures of the upper abdomen. RAD/Chest PA and Lateral IMPRESSION: Normal x-ray examination of the chest. Electronically Signed: Rhys Cueva MD at 12:37 EST ,
[2022-10-17 11:46] LABS: Bacteria 1+ /hpf (None Seen); Squamous Epithelial Cells - UA 0-5 SEEN /hpf (5-10)
[2022-10-17 11:56] LABS: AST(SGOT) 8 U/L (15-37); Alanine Aminotransfer ALT/SGPT 17 U/L (13-56); Alkaline Phosphatase 67 U/L (45-117); Anion Gap 10 (5-15); BUN 6 mg/dL (7-18); BUN/Creat Ratio 7.2 RATIO (10-20); Calcium,Total 9.6 mg/dL (8.5-10.1); Chloride 105 mmol/L (98-107); Creatinine, Serum 0.83 mg/dL (0.55-1.02); EST Glomerular Filtration Rate 81 mL/min (>60); Est Glom Filt Rate - Afr Amer 98 mL/min (>60); Estimated Creatinine Clearance 81.89 ml/min; Globulin 3.9 g/dL (2.2-4.2); Glucose 101 mg/dL (74-106); Potassium 3.1 mmol/L (3.5-5.1); Protein, Total 7.9 g/dL (6.4-8.2); Sodium Level 140 mmol/L (136-145)
--- NOTE | 2022-10-17 13:15 | EX.ED.DYSGE1 ---
HPI History of Present Illness Chief Complaint: Fatigue Informant: patient Onset/Context/Timing Onset: Weeks (1) Context: Gradual Onset Timing: Continuous Quality: Weak, tired Location: Generalized Worsened by: At night Relieved by: Nothing Narrative Narrative: Presents with increasing fatigue over the past week. Patient states she has been feeling weak and tired. Patient states she feels weak all over. Patient states it is worse at nighttime. Patient admits to some shortness of breath. Patient states nothing seems to help with the fatigue and weakness. Patient states she was recently diagnosed with pneumonia and started on Zithromax. Patient states she has taken 3 days of Zithromax. Patient admits to some subjective fevers. Patient also admits to some left ear pain. Patient admits to a shortness of breath and cough. [facility] Medical History Abdominal pain Acute frontal sinusitis, unspecified Acute pharyngitis, unspecified Acute sinusitis, unspecified Anxiety and depression Carpal tunnel syndrome Contact with and (suspected) exposure to other viral communicable diseases Hernia Migraine Preventative health care Seasonal allergies URI (upper respiratory infection) URI (upper respiratory infection) Urinary frequency Home Medications multivitamin 1 tab PO DAILY 03/05/17 [History Last Taken 01/07/19] valacyclovir 500 mg tablet 500 mg PO PRN PRN OUT BREAK 04/12/20 [History Last Taken Unknown] sumatriptan succinate 25 mg tablet See Rx Instructions PO .COMPLEX PRN migraine headache #10 tabs 04/20/22 [Rx Last Taken Unknown] sertraline 50 mg tablet 50 mg PO DAILY #30 tabs 09/25/22 [Rx Last Taken Unknown] azithromycin 250 mg tablet (Zithromax Z-Emanuel) See Rx Instructions PO .COMPLEX #6 tabs 10/15/22 [Rx Last Taken Unknown] Allergy/AdvReac Type Severity Reaction Status Date / Time hydrocodone bitartrate Allergy Unknown Verified 10/15/22 13:27 [From Vicodin] lactose Allergy Upset Verified 10/15/22 13:27 Stomach Family History Grandfather Alcoholism Cancer Surgical History History of carpal tunnel release History of hernia repair History of partial hysterectomy History of tonsillectomy [place] teeth extracted Social History Smoking Status: Former smoker alcohol intake: never substance use type: does not use what type of physical activity do you participate in: walking frequency: daily duration: other details: 1-3 miles a day ROS ROS ED Constitutional Constitutional ED: Reports fever(s) and subjective; Denies chills Eyes Eyes: Denies blurry vision or change in vision ENT ENT ED: Reports ear pain left; Denies rhinorrhea or sore throat Cardiovascular Cardiovascular: Denies chest pain or palpitations Respiratory/Chest Respiratory/Chest: Reports cough and dyspnea Gastrointestinal Gastrointestinal: Reports nausea; Denies vomiting Genitourinary Genitourinary ED: Denies dysuria or hematuria Musculoskeletal Musculoskeletal: Reports back pain; Denies neck pain Integumentary Denies abscess or rash Neurologic Neurologic: Reports headache(s); Denies weakness Allergic/Immunologic Allergic/Immunologic ED: Denies mouth swelling or urticaria EXAM Physical Exam Const Vital Signs: 10/17/22 09:46 10/17/22 11:06 10/17/22 12:22 Temperature 99.1 F Temperature Source Temporal Pulse Rate 90 76 Respiratory Rate 18 16 Respiratory Effort Normal Non-Labored Respiratory Pattern Normal Normal Blood Pressure 108/82 H Blood Pressure Mean 90 Pulse Ox 100 Oxygen Delivery Method Room Air 10/17/22 09:45 10/17/22 09:47 10/17/22 10:47 Temperature 98.3 F 98.2 F Temperature Source Temporal Temporal Pulse Rate 75 75 81 Respiratory Rate 18 18 16 Respiratory Effort Respiratory Pattern Blood Pressure 102/54 L 102/54 L 104/63 Blood Pressure Mean 70 70 76 Pulse Ox 100 100 100 Oxygen Delivery Method Room Air Room Air Room Air 10/17/22 11:00 10/17/22 12:00 Temperature 98.0 F 98.1 F Temperature Source Temporal Temporal Pulse Rate 78 84 Respiratory Rate 18 16 Respiratory Effort Respiratory Pattern Blood Pressure 101/64 103/65 Blood Pressure Mean 76 77 Pulse Ox 100 100 Oxygen Delivery Method Room Air Room Air Positive well nourished and well developed General Appearance ED: well developed and NAD HEENT Reports moist mucous membranes Neck supple and no JVD Resp normal respiratory effort Auscultation: wheezes scattered wheezes Cardio regular rate, regular rhythm and no murmurs GI normal to inspection, nondistended, normoactive bowel sounds and non-tender Palpation: soft Extremity normal to inspection General Extremety ED: Negative for edema or tenderness General Extremity: Negative for edema Neuro oriented x3, CN's II-XII intact bilaterally and no sensory deficits noted Sensorium / Orientation: alert Motor Exam: strength 5/5 throughout Psych mental status grossly normal Skin no rashes or lesions noted MDM MDM MDM Narrative Medical decision making narrative: Differential diagnosis includes pneumonia, bronchitis, viral upper respiratory infection, bacterial infection, viral illness, COVID-19 infection, influenza infection, and pneumothorax. CBC will be obtained to assess for leukocytosis and anemia. Comprehensive metabolic profile will be obtained to assess for electrolyte abnormality, hepatic function, and renal function. Urinalysis will be obtained to assess for urinary tract infection and hematuria. Lab Data Attestation: I reviewed the patient's lab results. Lab results narrative: CBC was reviewed and showed a mild leukocytosis of 12.4. Comprehensive metabolic profile was reviewed and showed a mild hypokalemia of 3.1. Urinalysis was reviewed and was within normal limits. COVID-19 rapid antigen was reviewed and was negative. Influenza A and influenza B rapid antigens were reviewed and were negative. Labs: Laboratory Results - last 24 hr 10/17/22 10/17/22 10/17/22 11:25 11:25 11:25 WBC 12.4 H RBC 4.99 Hgb 15.9 H Hct 47.0 MCV 94.2 MCH 31.9 MCHC 33.8 RDW Std Deviation 40.7 RDW Coeff of [place] 11.8 Plt Count 249 MPV 9.6 Immature Gran % (Auto) 0.400 Neut % (Auto) 80.3 H Lymph % (Auto) 14.4 L [place] % (Auto) 4.2 Eos % (Auto) 0.5 Baso % (Auto) 0.2 Absolute Neuts (auto) 10.0 H Absolute Lymphs (auto) 1.79 Nucleated RBC % 0 Sodium 140 Potassium 3.1 L Chloride 105 Carbon Dioxide 25.0 Anion Gap 10 BUN 6 L Creatinine 0.83 Estim Creat Clear Calc 81.89 Est GFR (MDRD) Af Amer 98 Est GFR (MDRD) Non-Af 81 BUN/Creatinine Ratio 7.2 L Glucose 101 Calcium 9.6 Total Bilirubin 0.60 AST 8 L ALT 17 Alkaline Phosphatase 67 Total Protein 7.9 Albumin 4.0 Globulin 3.9 Albumin/Globulin Ratio 1.0 Urine Color Yellow Urine Clarity Sl. Cloudy Urine pH 7.0 Ur Specific [place] 1.005 Urine Protein Negative Urine Glucose (UA) Normal Urine Ketones Negative Urine Occult Blood Negative Urine Nitrite Negative Urine Bilirubin Negative Urine Urobilinogen Normal Ur Leukocyte Esterase Negative Urine RBC 0 SEEN Urine WBC 0 SEEN Ur Squamous Epith Cells 0-5 SEEN Urine Bacteria 1+ Urine Mucus 0 SEEN Radiography Diagnostic Testing: Clinical Impression(s) from Imaging Studies Chest X-Ray 10/17/22 11:45 IMPRESSION: Normal x-ray examination of the chest. Electronically Signed: Rhys Cueva MD at 12:37 EST , PA and lateral chest x-ray was obtained. There are 2 views. On my independent interpretation, lung santillan are clear. There is normal cardiac silhouette. Bony thorax is normal. There is no acute process noted. Radiologist also interpreted the x-ray and agrees. Treatment and Re-Evaluation Narrative: Patient was given a DuoNeb aerosol here. Patient was given a dose of oral potassium. Patient is feeling better. Patient was able to ambulate to the bathroom and back without difficulty. Patient was advised of her findings. Patient was instructed to complete the Zithromax as prescribed. Patient was instructed to follow-up with her primary care physician in 3 to 5 days for reevaluation. Patient understood and was agreeable with the plan. All questions were answered. Discharge Plan Triage Chief Complaint: Fatigue ED Provider: Cody Sanchez Dx/Rx/DC Orders Clinical Impression: Acute bronchitis, Hypokalemia Instructions: ED Bronchitis with Wheezing (Adult) Prescriptions: No Action sertraline 50 mg tablet 50 mg PO DAILY Qty: 30 2RF azithromycin [Zithromax Z-Emanuel] 250 mg tablet See Rx Instructions PO .COMPLEX Qty: 6 0RF Rx Instructions: For 250 mg dose pack: take 500 mg today (day 1), then 250 mg for 4 days (days 2-5) PO multivitamin 1 EACH tablet 1 tab PO DAILY valacyclovir 500 MG tablet 500 mg PO PRN PRN (Reason: OUT BREAK) sumatriptan succinate 25 mg tablet See Rx Instructions PO .COMPLEX PRN (Reason: migraine headache) Qty: 10 1RF Rx Instructions: take 1 tab at onset of headache; if no relief may repeat 1 tab after at least 2 hrs; max = 4 tabs/24 hr orally PRN; Stand Alone Forms: ED Work / School Excuse Primary Care Provider: Venita Sanders Referrals: Venita Sanders MD [Primary Care Provider] - 3-5 Days Disposition Disposition: Home, Self Care
[2022-10-17] MEDS: Potassium Chloride Oral Tablet 20 MEQ 40 MEQ PO (13:32)
== END 2022-10-17 14:15 | disposition home or self-care (01) ==
PROVIDERS: Emergency Provider Emergency Medicine; PCP Internal Medicine; Visit Provider Emergency Medicine
DX: J20.9 Acute bronchitis, unspecified (principal); E87.6 Hypokalemia; H92.02 Otalgia, left ear; Z87.891 Personal history of nicotine dependence; Z20.822 Contact with and (suspected) exposure to COVID-19
CPT/HCPCS: 71046; 80053; 81001; 85025; 87428; 94640; 96360; 99283; J7030; A4216

== ENCOUNTER → 2022-10-23 | Outpatient (CLI) | payer MEDICAID, SELFPAY ==
[2022-10-23 16:58] LABS: Anion Gap 7 (5-15); BUN 8 mg/dL (7-18); BUN/Creat Ratio 13.9 RATIO (10-20); Calcium,Total 9.2 mg/dL (8.5-10.1); Chloride 104 mmol/L (98-107); Creatinine, Serum 0.58 mg/dL (0.55-1.02); EST Glomerular Filtration Rate 124 mL/min (>60); Est Glom Filt Rate - Afr Amer 150 mL/min (>60); Glucose 89 mg/dL (74-106); Potassium 3.6 mmol/L (3.5-5.1); Sodium Level 140 mmol/L (136-145)
== END | disposition home or self-care (01) ==
LOC: BIMLAB 15:37
PROVIDERS: PCP Internal Medicine; Referring Provider Internal Medicine; Visit Provider Internal Medicine
DX: E87.6 Hypokalemia (principal)
CPT/HCPCS: 36415; 80048

== ENCOUNTER 2023-04-01 20:37 | Emergency (ER) | payer MEDICAID, SELFPAY ==
[2023-04-01 20:37] VITALS: BP 91/49; PULSE 79; RESP 17; TEMP 36.4; O2SAT 100; BMI 21.6
--- NOTE | 2023-04-01 21:08 | RAD_ITS ---
STUDY: X-RAY CHEST REASON FOR EXAM: Female, 37 years old. Pain TECHNIQUE: PA and lateral views of the chest. COMPARISON: 10/17/2022 FINDINGS: The lungs are clear and expanded. There is no demonstrated pleural abnormality. Normal size heart. Normal mediastinum and olivia. Normal visualized pulmonary arteries. Normal visualized aortic arch and descending thoracic aorta. Normal visualized thoracic spine. Normal visualized ribs, clavicles, and shoulders. There is no demonstrated abnormality of the visualized soft tissue structures of the upper abdomen. RAD/Chest PA and Lateral IMPRESSION: Normal x-ray examination of the chest. Electronically Signed: Fausto Marie MD at 21:30 EDT ,
--- NOTE | 2023-04-01 23:06 | EDS_ITS ---
HPI History of Present Illness Chief Complaint: Chest Other Informant: patient Onset/Context/Timing Onset: Today Activity at onset: gradual Timing: Continuous Quality: Positive for Aching and Dull Location: Left Chest (Left lower ribs) Worsened By: Breathing and Coughing Relieved By: - (Hot shower) Associated Symptoms: Positive for Dyspnea and Cough; Negative for Nausea, Vomiting, Diaphoresis, Fever, Lightheadedness, Acid Reflux or Palpitations Narrative Narrative: Patient presents with left lower rib pain that began today. Patient describes her pain as dull and aching. Patient states it has been constant. Patient states it is worse with breathing. Patient states it is better with a hot shower. Patient also states she has been feeling fatigued. Patient admits to a cough but denies any sputum production. Patient admits to some slight shortness of breath. Patient states her pain radiates into her back. Patient denies any nausea or vomiting. Patient denies any fevers or chills. [facility] Medical History (Updated 04/01/23 @ 23:[address] Cody Sanchez DO) Abdominal pain Acute frontal sinusitis, unspecified Acute pharyngitis, unspecified Acute sinusitis, unspecified Anxiety and depression Carpal tunnel syndrome Contact with and (suspected) exposure to other viral communicable diseases Hernia Migraine Preventative health care Seasonal allergies URI (upper respiratory infection) URI (upper respiratory infection) Urinary frequency Home Medications multivitamin 1 tab PO DAILY 03/05/17 [History Last Taken 01/07/19] valacyclovir 500 mg tablet 500 mg PO PRN PRN OUT BREAK 04/12/20 [History Last Taken Unknown] sumatriptan succinate 25 mg tablet See Rx Instructions PO .COMPLEX PRN migraine headache #10 tabs 04/20/22 [Rx Last Taken Unknown] sertraline 50 mg tablet 50 mg PO DAILY #90 tabs 10/23/22 [Rx Last Taken Unknown] Allergy/AdvReac Type Severity Reaction Status Date / Time hydrocodone bitartrate Allergy Unknown Verified 04/01/23 20:39 [From Vicodin] lactose Allergy Upset Verified 04/01/23 20:39 Stomach Family History Grandfather Alcoholism Cancer Surgical History (Updated 04/01/23 @ 23:[address] Cody Schwiger, DO) History of bunionectomy History of carpal tunnel release History of hernia repair History of partial hysterectomy History of tonsillectomy [place] teeth extracted Social History Smoking Status: Former smoker alcohol intake: never substance use type: does not use what type of physical activity do you participate in: walking frequency: daily duration: other details: 1-3 miles a day ROS ROS ED Constitutional Constitutional ED: Denies chills or fever(s) Eyes Eyes: Denies blurry vision or change in vision ENT ENT ED: Denies rhinorrhea or sore throat Cardiovascular Cardiovascular: Denies chest pain or palpitations Respiratory/Chest Respiratory/Chest: Reports cough and dyspnea Gastrointestinal Gastrointestinal: Denies nausea or vomiting Genitourinary Genitourinary ED: Denies dysuria or hematuria Musculoskeletal Musculoskeletal: Reports back pain; Denies neck pain Integumentary Denies abscess or rash Neurologic Neurologic: Reports headache(s); Denies weakness Allergic/Immunologic Allergic/Immunologic ED: Denies mouth swelling or urticaria EXAM Physical Exam Const Vital Signs: 04/01/23 20:37 Temperature 97.6 F L Temperature Source Temporal Pulse Rate 79 Respiratory Rate 17 Blood Pressure 91/49 L Blood Pressure Mean 63 Pulse Ox 100 Oxygen Delivery Method Room Air Positive well nourished, well developed and obese General Appearance ED: well developed and NAD Nutritional Appearance: obese HEENT Reports moist mucous membranes normocephalic and atraumatic Neck supple and no JVD Chest Wall Chest Narrative: There is tenderness palpation over the left lower ribs. There is no bony crepitance or step-off. There is no subcutaneous emphysema noted. Resp normal respiratory effort Auscultation: rhonchi left lower Cardio regular rate and regular rhythm GI soft to palpation and non-tender Back/Spine no CVA tenderness Neuro oriented x3, CN's II-XII intact bilaterally and no sensory deficits noted Sensorium / Orientation: awake and alert Motor Exam: strength 5/5 throughout Psych mental status grossly normal MDM MDM MDM Narrative Medical decision making narrative: Differential diagnosis includes pneumonia, pneumothorax, and musculoskeletal chest wall pain. Chest x-ray will be obtained to assess for pneumonia and pneumothorax. Radiography Chest X-Ray - ED: 2 View, Read by ED Physician, Read by Radiologist and No Acute Disease Diagnostic Testing: Clinical Impression(s) from Imaging Studies Chest X-Ray 04/01/23 21:08 IMPRESSION: Normal x-ray examination of the chest. Electronically Signed: Fausto Marie MD at 21:30 EDT , PA and lateral chest x-ray was obtained. There are 2 views. On my independent interpretation, lung santillan are clear. There is normal cardiac silhouette. Bony thorax is normal. There is no acute process noted. Radiologist also interpreted the x-ray and agrees. Treatment and Re-Evaluation :: Patient was advised of the findings. Patient was instructed to use ice to the area. Patient was instructed to take Tylenol or ibuprofen as needed for pain. Patient was instructed to follow-up with her primary care physician in 5 to 7 days. Patient was instructed return if worse in any way. Patient understood and was agreeable with the plan. All questions were answered. Discharge Plan Triage Chief Complaint: Chest Other ED Provider: Cody Sanchez Dx/Rx/DC Orders Clinical Impression: Acute chest wall pain Instructions: ED Chest Wall Pain, Costochondritis Prescriptions: No Action sertraline 50 mg tablet 50 mg PO DAILY Qty: 90 3RF multivitamin 1 EACH tablet 1 tab PO DAILY valacyclovir 500 MG tablet 500 mg PO PRN PRN (Reason: OUT BREAK) sumatriptan succinate 25 mg tablet See Rx Instructions PO .COMPLEX PRN (Reason: migraine headache) Qty: 10 1RF Rx Instructions: take 1 tab at onset of headache; if no relief may repeat 1 tab after at least 2 hrs; max = 4 tabs/24 hr orally PRN; Primary Care Provider: Venita Sanders Referrals: Venita Sanders MD [Primary Care Provider] - 5-7 Days Disposition Disposition: Home, Self Care
[2023-04-01 23:11] VITALS: RESP 18
== END 2023-04-01 23:24 | disposition home or self-care (01) ==
PROVIDERS: Emergency Provider Emergency Medicine; PCP Internal Medicine; Visit Provider Emergency Medicine
DX: R07.89 Other chest pain (principal); Z87.891 Personal history of nicotine dependence; F41.8 Other specified anxiety disorders; Z79.899 Other long term (current) drug therapy
CPT/HCPCS: 71046; 99282

== ENCOUNTER 2023-08-21 13:08 | Emergency (ER) | payer MEDICAID, SELFPAY ==
[2023-08-21 13:09] VITALS: BP 97/70; PULSE 86; RESP 16; TEMP 37.1; O2SAT 100; BMI 22.1
--- NOTE | 2023-08-21 14:09 | RAD_ITS ---
STUDY: X-RAY CHEST REASON FOR EXAM: Female, 38 years old. Shortness of breath. TECHNIQUE: Frontal and lateral views of the chest. COMPARISON: April 01, 2023 FINDINGS: Mild hyperinflation unchanged. There is no demonstrated pleural abnormality. Normal size heart. Normal mediastinum and olivia. Normal visualized pulmonary arteries. Normal visualized aortic arch and descending thoracic aorta. Normal visualized thoracic spine. Normal visualized ribs, clavicles, and shoulders. There is no demonstrated abnormality of the visualized soft tissue structures of the upper abdomen. RAD/Chest PA and Lateral IMPRESSION: Stable mild hyperinflation with no acute or active cardiopulmonary disease. Electronically Signed: Dylan Jaramillo MD at 14:50 EST ,
[2023-08-21] MEDS: Ondansetron ODT 4 MG Tablet PO (14:31)
--- NOTE | 2023-08-21 14:40 | EX.ED.DYSGE1 ---
HPI <OLIMPIA Holden - Last Filed: 08/21/23 16:13> History of Present Illness Chief Complaint: Shortness of Breath Narrative Narrative: Patient presenting today due to nasal congestion, bilateral ear pain, nausea, and slight shortness of breath on exertion. She also reports intermittent fevers and chills. She reports that her symptoms started on Sunday and on Sunday she went to urgent care and tested positive for COVID. She has been alternating Tylenol and ibuprofen and taking Mucinex with minimal relief of her symptoms. She denies a PMH of any chronic health conditions. She denies chest pain, abdominal pain, vomiting, and diarrhea. PFSH <OLIMPIA Holden - Last Filed: 08/21/23 16:13> PFS Medical History Abdominal pain Acute frontal sinusitis, unspecified Acute pharyngitis, unspecified Acute sinusitis, unspecified Anxiety and depression Carpal tunnel syndrome Contact with and (suspected) exposure to other viral communicable diseases Hernia Migraine Preventative health care Seasonal allergies URI (upper respiratory infection) URI (upper respiratory infection) Urinary frequency Home Medications multivitamin 1 tab PO DAILY 03/05/17 [History Last Taken 01/07/19] valacyclovir 500 mg tablet 500 mg PO PRN PRN OUT BREAK 04/12/20 [History Last Taken Unknown] sumatriptan succinate 25 mg tablet See Rx Instructions PO .COMPLEX PRN migraine headache #10 tabs 04/20/22 [Rx Last Taken Unknown] sertraline 50 mg tablet 50 mg PO DAILY #90 tabs 10/23/22 [Rx Last Taken Unknown] ondansetron 4 mg disintegrating tablet 4 mg PO Q8H PRN PRN Nausea #10 tabs 08/21/23 [Rx Last Taken Unknown] Allergy/AdvReac Type Severity Reaction Status Date / Time hydrocodone bitartrate Allergy Unknown Verified 08/21/23 13:08 [From Vicodin] lactose Allergy Upset Verified 08/21/23 13:08 Stomach Family History Grandfather Alcoholism Cancer Surgical History History of bunionectomy History of carpal tunnel release History of hernia repair History of partial hysterectomy History of tonsillectomy [place] teeth extracted Social History Smoking Status: Former smoker alcohol intake: never substance use type: does not use what type of physical activity do you participate in: walking frequency: daily duration: other details: 1-3 miles a day ROS <OLIMPIA Holden - Last Filed: 08/21/23 16:13> ROS ED Constitutional Constitutional ED: Reports chills and fever(s) Cardiovascular Cardiovascular: Denies chest pain or palpitations Respiratory/Chest Respiratory/Chest: Reports cough and dyspnea on exertion; Denies tachypnea or wheezing Gastrointestinal Gastrointestinal: Reports nausea; Denies abdominal pain or vomiting Genitourinary Genitourinary ED: Denies dysuria, hematuria or urinary urgency Musculoskeletal Musculoskeletal: Denies arthralgias or myalgias Integumentary Denies rash Neurologic Neurologic: Denies weakness EXAM <OLIMPIA Holden - Last Filed: 08/21/23 16:13> Physical Exam Const Vital Signs: 08/21/23 13:09 08/21/23 13:46 Temperature 98.7 F Temperature Source Temporal Pulse Rate 86 Respiratory Rate 16 Respiratory Effort Normal Non-Labored Respiratory Depth Normal Respiratory Pattern Normal Blood Pressure 97/70 Blood Pressure Mean 79 Pulse Ox 100 Oxygen Delivery Method Room Air Room Air Positive well nourished, well developed and no apparent distress General Appearance ED: well developed HEENT Reports normocephalic, head/scalp atraumatic and TM's clear Tympanic Membrane ED: Yes TM's clear bilateral Mouth ED: Yes moist mucous membranes normal Eyes PERRL and EOMs intact bilaterally Neck full ROM and supple Chest Wall inspection of chest normal Resp normal respiratory effort and clear to auscultation bilaterally Cardio regular rate and regular rhythm GI soft to palpation, non-tender, non-distended and no masses Back/Spine normal ROM and normal to inspection Extremity normal to inspection and full ROM Neuro oriented x3, CN's II-XII intact bilaterally, moves all extremities, no focal motor deficits and no sensory deficits noted Sensorium / Orientation: awake and alert Psych mental status grossly normal and thought process normal Skin no rashes or lesions noted and no wounds <Dr. Lawrence Moran DO - Last Filed: 08/21/23 22:23> Physical Exam Const Vital Signs: 08/21/23 13:09 08/21/23 13:46 Temperature 98.7 F Temperature Source Temporal Pulse Rate 86 Respiratory Rate 16 Respiratory Effort Normal Non-Labored Respiratory Depth Normal Respiratory Pattern Normal Blood Pressure 97/70 Blood Pressure Mean 79 Pulse Ox 100 Oxygen Delivery Method Room Air Room Air [facility] <Yamilex Castle PA - Last Filed: 08/21/23 16:13> [facility] Narrative Medical decision making narrative: Patient presenting with COVID-19. She began having symptoms on Sunday and tested positive on Sunday. She is nontoxic-appearing and in no acute distress. Her vitals are unremarkable. She reports slight shortness of breath on exertion but oxygen saturation is 100% on room air. She is afebrile. She will be given Zofran for her nausea and a prescription for Zofran. Chest x-ray obtained and is negative for any acute cardiopulmonary abnormality. She is to continue supportive care measures. She has been given return instructions and will be discharged home in stable condition. She is comfortable with plan Radiography X-Ray: Read by ED Physician and Read by Radiologist Diagnostic Testing: Clinical Impression(s) from Imaging Studies Chest X-Ray 08/21/23 14:09 IMPRESSION: Stable mild hyperinflation with no acute or active cardiopulmonary disease. Electronically Signed: Dylan Jaramillo MD at 14:50 EST , <Dr. Lawrence Moran DO - Last Filed: 08/21/23 22:23> [facility] Narrative Medical decision making narrative: Patient presenting with COVID-19. She began having symptoms on Sunday and tested positive on Sunday. She is nontoxic-appearing and in no acute distress. Her vitals are unremarkable. She reports slight shortness of breath on exertion but oxygen saturation is 100% on room air. She is afebrile. She will be given Zofran for her nausea and a prescription for Zofran. Chest x-ray obtained and is negative for any acute cardiopulmonary abnormality. She is to continue supportive care measures. She has been given return instructions and will be discharged home in stable condition. She is comfortable with plan. This patient was seen with a PA/HYBRID DERIVATIVES TRADER Individually assessed they patient including history and physical. I have reviewed everything on the chart that is available and agree with the documentation provided by the PA/HYBRID DERIVATIVES TRADER including discussion about the assessment, treatment plan, discussion, and return precautions. Well-appearing 38-year-old female diagnosed with COVID. Vital signs stable she is afebrile. She has nausea which was treated. Chest x-ray was negative. Patient prescription for Zofran was prescribed. Return precautions discussed. Impression: 1 COVID-19 2. Nausea Radiography Diagnostic Testing: Clinical Impression(s) from Imaging Studies Chest X-Ray 08/21/23 14:09 IMPRESSION: Stable mild hyperinflation with no acute or active cardiopulmonary disease. Electronically Signed: Dylan Jaramillo MD at 14:50 EST , Discharge Plan Triage Chief Complaint: Shortness of Breath ED Midlevel Provider: Yamilex Castle ED Provider: Lawrence Moran Dx/Rx/DC Orders Clinical Impression: COVID-19 Instructions: Coronavirus Disease 2019 (COVID-19): Caring for Yourself or Others Prescriptions: New ondansetron 4 mg tablet,disintegrating 4 mg PO Q8H PRN PRN (Reason: Nausea) Qty: 10 0RF No Action sertraline 50 mg tablet 50 mg PO DAILY Qty: 90 3RF multivitamin 1 EACH tablet 1 tab PO DAILY valacyclovir 500 MG tablet 500 mg PO PRN PRN (Reason: OUT BREAK) sumatriptan succinate 25 mg tablet See Rx Instructions PO .COMPLEX PRN (Reason: migraine headache) Qty: 10 1RF Rx Instructions: take 1 tab at onset of headache; if no relief may repeat 1 tab after at least 2 hrs; max = 4 tabs/24 hr orally PRN; Primary Care Provider: Venita Sanders Referrals: Venita Sanders MD [Primary Care Provider] - 1 Week if not improving Activity Restrictions/Additional Instructions: Stay well-hydrated. Take [id number] cold and flu medications for your symptoms as needed. Return for worsening of symptoms. Disposition Disposition: Home, Self Care Discharge Date/Time: 08/21/23 15:08
== END 2023-08-21 15:08 | disposition home or self-care (01) ==
PROVIDERS: Emergency Provider Student in an Organized Health Care Education/Training Program; PCP Internal Medicine; Visit Provider Student in an Organized Health Care Education/Training Program
DX: U07.1 COVID-19 (principal); Z87.891 Personal history of nicotine dependence; R11.0 Nausea; G43.909 Migraine, unspecified, not intractable, without status migrainosus; Z79.899 Other long term (current) drug therapy; F41.8 Other specified anxiety disorders; Z90.710 Acquired absence of both cervix and uterus
CPT/HCPCS: 71046; 99282

== ENCOUNTER → 2023-11-07 | Outpatient (CLI) | payer MEDICAID, SELFPAY ==
--- NOTE | 2023-11-07 07:47 | US_ITS ---
STUDY: ULTRASOUND BREAST - LEFT REASON FOR EXAM: Female, 38 years old. Left breast lump. TECHNIQUE: Axial and longitudinal images of the LEFT breast were performed with a high resolution ultrasound transducer. # OF IMAGES: 25 COMPARISON: Comparison is made with prior outside mammogram dated July 31, 2023. FINDINGS: LEFT Breast: In the retroareolar region of the left breast was examined with ultrasound. There is a 1.1 cm x 0.9 cm x 0.3 cm complex cystic nodule in the skin surface. This most likely represents a sebaceous cyst. US/Breast Limited Unilateral IMPRESSION: Findings suggestive of a 1.1 cm x 0.9 cm x 0.3 cm sebaceous cyst in the periareolar region. ASSESSMENT CATEGORY: BIRADS Category 2: Benign. A letter regarding these results will be sent to the patient by the facility within 30 days. Electronically Signed: Rhys Cueva MD at 12:28 EDT ,
== END | disposition home or self-care (01) ==
LOC: OPUS 07:47
PROVIDERS: PCP Internal Medicine; Referring Provider Nurse Practitioner; Visit Provider Nurse Practitioner
DX: N64.9 Disorder of breast, unspecified (principal); N63.20 Unspecified lump in the left breast, unspecified quadrant
CPT/HCPCS: 76642

== ENCOUNTER 2023-12-18 11:14 | Emergency (ER) | payer MEDICAID, SELFPAY ==
[2023-12-18 11:15] VITALS: PULSE 76; RESP 20; TEMP 36.2; O2SAT 100; BMI 21.2
[2023-12-18 11:19] VITALS: BP 110/66
--- NOTE | 2023-12-18 11:31 | ED.RN ---
my whole body feels tingly.
--- NOTE | 2023-12-18 11:50 | EX.ED.DYSGE1 ---
HPI History of Present Illness Chief Complaint: Numb/Ting [facility] Medical History Abdominal pain Acute frontal sinusitis, unspecified Acute pharyngitis, unspecified Acute sinusitis, unspecified Anxiety and depression Carpal tunnel syndrome Contact with and (suspected) exposure to other viral communicable diseases Hernia Migraine Preventative health care Seasonal allergies URI (upper respiratory infection) URI (upper respiratory infection) Urinary frequency Home Medications multivitamin 1 tab PO DAILY 03/05/17 [History Last Taken 01/07/19] valacyclovir 500 mg tablet 500 mg PO PRN PRN OUT BREAK 04/12/20 [History Last Taken Unknown] sumatriptan succinate 25 mg tablet See Rx Instructions PO .COMPLEX PRN migraine headache #10 tabs 04/20/22 [Rx Last Taken Unknown] albuterol sulfate 90 mcg/actuation aerosol inhaler 2 puff inhalation Q6H PRN 12/13/23 [History Last Taken Unknown] buspirone 5 mg tablet 5 mg PO BID #60 tabs 12/13/23 [Rx Last Taken Unknown] sertraline 50 mg tablet 75 mg (1.5 x 50 mg) PO DAILY #90 TABLETS 12/13/23 [Rx Last Taken Unknown] inhalational spacing device (Ghanshyam Aerosol [place] Enhancer spacer) #1 ea 12/14/23 [Rx Last Taken Unknown] polymyxin B sulfate 10,000 unit-trimethoprim 1 mg/mL eye drops 1 drp ophthalmic (eye) Q3H 7 days #10 mL 12/14/23 [Rx Last Taken Unknown] metoclopramide HCl 5 mg tablet (Reglan) 5 mg PO Q8 PRN Headache #20 tabs 12/18/23 [Rx Last Taken Unknown] Allergy/AdvReac Type Severity Reaction Status Date / Time Penicillins Allergy Mild Rash Verified 12/18/23 11:20 hydrocodone bitartrate Allergy Unknown Verified 12/18/23 11:20 [From Vicodin] lactose Allergy Upset Verified 12/18/23 11:20 Stomach Family History Grandfather Alcoholism Cancer Surgical History History of bunionectomy History of carpal tunnel release History of hernia repair History of partial hysterectomy History of tonsillectomy [place] teeth extracted Social History Smoking Status: Former smoker alcohol intake: never substance use type: does not use what type of physical activity do you participate in: walking frequency: daily duration: other details: 1-3 miles a day EXAM Physical Exam Const Vital Signs: 12/18/23 11:15 12/18/23 11:19 12/18/23 13:15 Temperature 97.1 F L Temperature Source Temporal Pulse Rate 76 63 Respiratory Rate 20 H 12 Blood Pressure 110/66 102/61 Blood Pressure Mean 80 74 Pulse Ox 100 100 Oxygen Delivery Method Room Air Room Air 12/18/23 15:00 12/18/23 15:15 Temperature 97 F L Temperature Source Pulse Rate 67 80 Respiratory Rate 10 L 13 Blood Pressure 119/76 106/58 L Blood Pressure Mean 90 74 Pulse Ox 100 99 Oxygen Delivery Method Room Air MDM MDM MDM Narrative Medical decision making narrative: HISTORY OF PRESENT ILLNESS: 38-year-old female presents with dizziness and weakness and paresthesias. States this began 1 hour prior to arrival. Notes headache notes feeling like her eyes are going to pop out of her head. Notes feeling heaviness in her arms and legs. Notes feeling diffusely weak. Patient denies sudden onset or thunderclap headache, denies maximal intensity within 1 minute, vomiting, neck pain, stiffness, changes in vision, fever, history malignancy, syncope, or seizures associated with headache. Denies chest pain. Denies palpitations. REVIEW OF SYSTEMS: Pertinent positives: Dizziness, weakness, headache Pertinent negatives: Focal weakness, numbness, vomiting PHYSICAL EXAM: Nursing triage notes reviewed, Vital signs reviewed Constitutional: please see mdm HENT: MMM Eyes: Pupils equal round and reactive to light, Extraocular muscles intact Neck: No stridor, no JVD, full neck ROM Lungs: Clear to auscultation, No wheezing or rales. No increased work of breathing, no conversational dyspnea, no accessory muscle use, no nasal flaring. No respiratory distress noted Heart: Regular rate and rhythm, No murmurs, No rubs and No gallops, 2+ distal pulses (radial, femoral, posterior tibial) in all extremities Abdomen: Soft, there is no tenderness, rigidity, rebound or guarding, no obvious peritoneal signs, no palpable pulsatile abdominal masses, no auscultated abdominal bruit : No CVAT Extremities: No edema Neuro: alert and oriented x3, neuro exam at baseline, cranial nerves II through XII are intact. No pain with extraocular muscle movement. There is negative test of skew. 5 of 5 strength in upper and lower extremities in flexion extension. Intact sensation to light touch in upper and lower extremity dermatomes. No truncal or extremity ataxia. No dysdiadochokinesia. Normal gait. 2+ reflexes in upper and lower extremities. No meningeal signs. Negative Babinski. NIH of 0. Skin: No rash or lesions noted MEDICAL DECISION MAKING: Chief Complaint: Dizziness, weakness External records reviewed: Imaging reviewed: CT scan of the brain from 2019 shows no acute abnormality Factors affecting care: Anxiety, depression, Social determinants of health: Denies drug use History obtained from others: none Consults: none MDM Narrative: Patient was hemodynamically stable, afebrile and nontoxic-appearing. Exam without focal neurologic deficits I considered the following differential diagnosis: ICH, mass, thyroid dysfunction, ACS, arrhythmia, Migraine, anemia, electrolyte disturbance I obtained a broad lab and imaging workup to further elucidate the etiology patient complaints ALL IMAGES (IF OBTAINED) HAVE BEEN PERSONALLY REVIEWED AND INTERPRETED BY MYSELF. Urine test is negative High-sensitivity troponin is negative, no evidence of myocardial ischemia BMP with mild hypokalemia, no other electrolyte disturbances, no evidence of metabolic acidosis or endorgan hypoperfusion LFTs show no evidence of hepatobiliary pathology. TSH within normal limits CT scan of the head was negative for acute intracranial normality I have personally reviewed the patient's chest x-ray. Chest x-ray is unremarkable for pulmonary edema, pneumothorax, pneumonia or focal cardiopulmonary abnormality. The synthesis of the patient history, physical exam, labs images suggest no no acute intracranial normality no sign of myocardial ischemia, severe anemia, electrolyte abnormalities to explain her symptoms. The etiology of the patient's complaint is unclear at this time but certainly does not appear to be life-threatening. He is appropriate for discharge home with close outpatient follow-up. She was given a prescription of Reglan for symptomatic therapy of breakthrough headache. The patient and/or family, caregivers express understanding. The patient and/or family, caregivers agrees with the plan. Shared decision making: I will have a discussion with the patient and or visitors regarding risk/benefits of further testing or admission. They will be made aware of of the risk/benefits inherent in this decision they will be given the opportunity to voice understanding. Total critical care time today provided was at least 0 minutes. This excludes separately billable procedures. Critical care time (if documented) is secondary to the patient having high probability of clinically significant/life threatening deterioration in the patient's condition which required my urgent intervention. Impression: 1. Headache 2. Diffuse weakness Dispo: discharge This note was generated with [employer] dictation software. It may contain incorrect words, spelling, and punctuation that were not noted in review of the chart prior to signing. Lab Data Labs: Laboratory Results - last 24 hr 12/18/23 12/18/23 12:45 12:55 WBC 7.4 RBC 4.39 Hgb 13.7 Hct 40.6 MCV 92.5 MCH 31.2 MCHC 33.7 RDW Std Deviation 42.5 RDW Coeff of Cierra 12.5 Plt Count 292 MPV 10.1 Immature Gran % (Auto) 0.500 Neut % (Auto) 70.2 H Lymph % (Auto) 22.0 Griggs % (Auto) 6.2 Eos % (Auto) 0.7 Baso % (Auto) 0.4 Absolute Neuts (auto) 5.2 Absolute Lymphs (auto) 1.64 Nucleated RBC % 0 Sodium 141 Potassium 3.4 L Chloride 108 H Carbon Dioxide 28.0 Anion Gap 5 BUN 6 L Creatinine 0.60 Estim Creat Clear Calc 112.15 Est GFR (MDRD) Af Amer 141 Est GFR (MDRD) Non-Af 117 BUN/Creatinine Ratio 9.9 L Glucose 83 Calcium 8.8 Total Bilirubin 0.50 AST 13 L ALT 18 Alkaline Phosphatase 45 Troponin I High Sens 3 Total Protein 6.6 Albumin 3.4 Globulin 3.2 Albumin/Globulin Ratio 1.1 TSH 0.55 Urine Test Negative Radiography Diagnostic Testing: Clinical Impression(s) from Imaging Studies Brain CT 12/18/23 12:17 IMPRESSION: Partial opacification of the maxillary and ethmoid sinuses as well as mucosal thickening of the sphenoid sinus. Electronically Signed: Rhys Cueva MD at 13:32 EDT , Chest X-Ray 12/18/23 12:55 IMPRESSION: Hyperinflation. No acute abnormality is seen. Stable examination. Electronically Signed: Rhys Cueva MD at 13:29 EDT , Discharge Plan Triage Chief Complaint: Numb/Ting ED Provider: Dru Chinchilla Dx/Rx/DC Orders Clinical Impression: Headache Instructions: ED, Migraine (Classical) Prescriptions: New metoclopramide HCl [Reglan] 5 mg tablet 5 mg PO Q8 PRN (Reason: Headache) Qty: 20 0RF No Action albuterol sulfate 90 mcg/actuation HFA aerosol inhaler 2 puff inhalation Q6H PRN buspirone 5 mg tablet 5 mg PO BID Qty: 60 0RF sertraline 50 mg tablet 75 mg PO DAILY Qty: 90 0RF polymyxin B sulf-trimethoprim 10,000 unit- 1 mg/mL drops 1 drp ophthalmic (eye) Q3H 7 Days Qty: 10 0RF Rx Instructions: while awake; do not exceed 6 doses in 24 hours (DME) Ghanshyam Aerosol [place] Enhancer Spacer See Rx Instructions .Route Qty: 1 0RF Rx Instructions: As directed multivitamin 1 EACH tablet 1 tab PO DAILY valacyclovir 500 MG tablet 500 mg PO PRN PRN (Reason: OUT BREAK) sumatriptan succinate 25 mg tablet See Rx Instructions PO .COMPLEX PRN (Reason: migraine headache) Qty: 10 1RF Rx Instructions: take 1 tab at onset of headache; if no relief may repeat 1 tab after at least 2 hrs; max = 4 tabs/24 hr orally PRN; Stand Alone Forms: ED Work / School Excuse Primary Care Provider: Venita Sanders Referrals: Venita Sanders MD [Primary Care Provider] - Activity Restrictions/Additional Instructions: Thank you for trusting us with your care today! Please take Tylenol (2 pills, 650 mg), ibuprofen (2 pills, 400 mg) every 6 hours as needed for pain and fever control. Please take Reglan as needed for breakthrough headache. Please return to the emergency department if your symptoms change or worsen. Specifically develop loss of vision, slurred speech, loss of movement or sensation in extremities, incoordination or difficulty with balance. Please follow with your primary care physician for further outpatient evaluation and management. Disposition Disposition: Home, Self Care Discharge Date/Time: 12/18/23 15:24
--- NOTE | 2023-12-18 12:17 | CT_ITS ---
STUDY: CT BRAIN WITHOUT CONTRAST REASON FOR EXAM: Female, 38 years old. Dizziness and headaches. Arm numbness. RADIATION DOSAGE (If Supplied By Facility): CTDIvol = ( 47.06 ) mGy, DLP = ( 855.03 ) mGycm TECHNIQUE: Transaxial CT imaging of the brain was performed without administration of intravenous contrast material. Individualized dose optimization techniques were used for this CT. COMPARISON: Comparison is made with prior study dated October 25, 2018. FINDINGS: Normal soft tissue structures. Normal calvarium. Normal size ventricles and extra-axial spaces for the patient''s age. Normal white matter tracts of the cerebral hemispheres. Normal basal ganglia and thalami. Normal brainstem. Normal cerebellum. There is no intracranial hemorrhage. There are no findings of an acute ischemic infarction. Partial opacification of the maxillary sinuses as well as the ethmoid sinuses bilaterally. Mucosal thickening of the ethmoid sinuses. CT/Brain/Head without Contrast IMPRESSION: Partial opacification of the maxillary and ethmoid sinuses as well as mucosal thickening of the sphenoid sinus. Electronically Signed: Rhys Cueva MD at 13:32 EDT ,
[2023-12-18] MEDS: 0.9% Normal Saline (1000mL) 1,000 ML 999 ML IV (12:40)
[2023-12-18] MEDS: Metoclopramide 10 MG/2 ML Vial 5 MG IV (12:41)
--- NOTE | 2023-12-18 12:55 | RAD_ITS ---
STUDY: X-RAY CHEST REASON FOR EXAM: Female, 38 years old. Weakness TECHNIQUE: Single AP portable view of the chest. COMPARISON: Comparison is made with prior study dated August 21, 2023. FINDINGS: EKG electrodes are seen. Hyperinflation. The lungs are clear. There is no demonstrated pleural abnormality. Normal size heart. Normal mediastinum and olivia. Normal visualized pulmonary arteries. Normal visualized aortic arch and descending thoracic aorta. Normal visualized thoracic spine. Normal visualized ribs, clavicles, and shoulders. There is no demonstrated abnormality of the visualized soft tissue structures of the upper abdomen. RAD/Chest 1 View (Portable) IMPRESSION: Hyperinflation. No acute abnormality is seen. Stable examination. Electronically Signed: Rhys Cueva MD at 13:29 EDT ,
[2023-12-18 13:06] LABS: Absolute Lymphocyte Count 1.64 X10^3/uL (0.83-4.51); Absolute Neutrophil Count 5.2 X10^3/uL (2.0-7.7); Basophil# 0.03 X10^3/uL; Basophil% 0.4 % (0-1); Eosinophil# 0.05 X10^3/uL; Eosinophils% 0.7 % (0-5); Hematocrit 40.6 % (37-47); Hemoglobin 13.7 g/dL (12.0-15.0); Lymphocyte # 1.64 X10^3/ul (0.83-4.51); Mean Corp Hgb Conc 33.7 g/dL (32-36); Mean Corpuscular Hgb 31.2 pg (27.0-32.0); Mean Corpuscular Volume 92.5 fL (81-99); Mean Platelet Vol. 10.1 fl (6.2-12.0); Monocyte# 0.46 X10^3/uL; Monocyte% 6.2 % (0-10); NRBC Flagged by Analyzer 0 % (0-5); Neutrophil # 5.22 X10^3/uL (2.7-7.7); Neutrophil % 70.2 % (47-70); Platelet Count 292 K/mm3 (150-450); RBC Distribution Width CV 12.5 % (11.6-14.6); RBC Distribution Width SD 42.5 fl (35.1-43.9); Red Blood Count 4.39 M/mm3 (4.2-5.4); White Blood Count 7.4 K/mm3 (4.4-11.0)
[2023-12-18 13:10] LABS: Internal QC Validated? YES +Cl - CLEAR BKGD; Pregnancy, Urine Negative Negative
[2023-12-18 13:15] VITALS: BP 102/61; PULSE 63; RESP 12; O2SAT 100
[2023-12-18 13:38] LABS: ALB/GLOB Ratio 1.1 RATIO (0.9-2.4); AST(SGOT) 13 U/L (15-37); Alanine Aminotransfer ALT/SGPT 18 U/L (13-56); Albumin, Serum 3.4 g/dL (3.2-5.0); Alkaline Phosphatase 45 U/L (45-117); Anion Gap 5 (5-15); BUN 6 mg/dL (7-18); BUN/Creat Ratio 9.9 RATIO (10-20); Calcium,Total 8.8 mg/dL (8.5-10.1); Chloride 108 mmol/L (98-107); EST Glomerular Filtration Rate 117 mL/min (>60); Est Glom Filt Rate - Afr Amer 141 mL/min (>60); Estimated Creatinine Clearance 112.15 ml/min; Globulin 3.2 g/dL (2.2-4.2); Glucose 83 mg/dL (74-106); Potassium 3.4 mmol/L (3.5-5.1); Protein, Total 6.6 g/dL (6.4-8.2); Sodium Level 141 mmol/L (136-145); Thyroid Stim Hormone (TSH) 0.55 uIU/mL (0.358-3.74); Troponin-I HS 3 pg/mL (3.0-54.0)
[2023-12-18] MEDS: Ketorolac 15 MG/ML Vial IV (14:53)
[2023-12-18] MEDS: dexAMETHasone 4 MG/ML Vial IV (14:53)
[2023-12-18 15:00] VITALS: BP 119/76; PULSE 67; RESP 10; O2SAT 100
--- NOTE | 2023-12-18 15:07 | EKG12_ITS ---
Test Reason : NEURO S Blood Pressure : / mmHG Vent. Rate : 069 BPM Atrial Rate : 069 BPM P-R Int : 134 ms QRS Dur : 066 ms QT Int : 416 ms P-R-T Axes : 073 073 070 degrees QTc Int : 445 ms Normal sinus rhythm Normal ECG Confirmed by CHRISTINA LYONS, MANDIE ([id number]), manager editorial MAURICE VALLADARES ([id number]) on 12/20/2023 11:38:08 AM Referred By: Confirmed By:MANDIE VASQUEZ MD
[2023-12-18 15:15] VITALS: BP 106/58; PULSE 80; RESP 13; TEMP 36.1; O2SAT 99
== END 2023-12-18 15:24 | disposition home or self-care (01) ==
PROVIDERS: Emergency Provider Emergency Medicine; PCP Internal Medicine; Visit Provider Emergency Medicine
DX: R53.1 Weakness (principal); Z87.891 Personal history of nicotine dependence; R42 Dizziness and giddiness; R51.9 Headache, unspecified; F41.8 Other specified anxiety disorders; Z79.899 Other long term (current) drug therapy; Z90.710 Acquired absence of both cervix and uterus
CPT/HCPCS: 70450; 71045; 80053; 81025; 84443; 84484; 85025; 93005; 96361; 96374; 96375; 99285; J7030; A4216

== ENCOUNTER → 2024-08-14 | Outpatient (CLI) | payer MEDICAID, SELFPAY ==
[2024-08-14 17:49] LABS: Erythrocyte Sedimentation Rate 6 mm/hr (0-30)
[2024-08-14 18:16] LABS: CRP < 2.90 mg/L (0.0-3.0)
[2024-08-18 13:06] LABS: ANTINUCLEAR ANTIBODIES DIRECT Negative (Negative)
== END | disposition home or self-care (01) ==
LOC: BIMLAB 15:45
PROVIDERS: PCP Internal Medicine; Referring Provider Physician Assistant; Visit Provider Physician Assistant
DX: M25.40 Effusion, unspecified joint (principal)
CPT/HCPCS: 36415; 85652; 86038; 86140

== ENCOUNTER 2024-10-31 08:45 | Emergency (ER) | payer BC, MEDICAID, SELFPAY ==
[2024-10-31 08:46] VITALS: BP 106/59; PULSE 74; RESP 16; TEMP 36.3; O2SAT 100
[2024-10-31 08:52] VITALS: BMI 21.6
--- NOTE | 2024-10-31 09:07 | EDS_ITS ---
HPI History of Present Illness Chief Complaint: General Illness Narrative Narrative: 39-year-old female past medical history of previous migraines, sometimes takes sumatriptan presents with headache that began this morning at around 430. This was approximately 4-1/2 hours ago. She states yesterday everything was fine. She has not been to the emergency department in a while for medications. She states she awoke this morning with slight headache that has gradually progressed to an allover headache. It is associated with photophobia and perhaps mild phonophobia. No vomiting. She has paresthesias of her bilateral upper arms. She also felt lightheaded and dizzy at the same time. Mild spinning sensation but also near syncope. She did not take her sumatriptan hand. She has not had a migraine in a few months, but this does feel somewhat similar. She currently rates it a 10 out of 10. Denies other symptoms, no exacerbating or alleviating factors. [facility] Medical History Adjustment disorder with anxiety Contact with and (suspected) exposure to other viral communicable diseases Acute pharyngitis, unspecified URI (upper respiratory infection) Migraine Anxiety and depression Acute sinusitis, unspecified URI (upper respiratory infection) Preventative health care Acute frontal sinusitis, unspecified Abdominal pain Urinary frequency Carpal tunnel syndrome Seasonal allergies Hernia Home Medications ?Medication ?Instructions ?Recorded ?Last Taken ?Type multivitamin 1 tab PO DAILY 03/05/1712/19 History valacyclovir 500 mg tablet 500 mg PO PRN PRN OUT BREAK 04/12/20 Unknown History metoclopramide HCl 5 mg tablet 5 mg PO Q8 PRN Headache #20 tabs 12/18/23 Unknown Rx (Reglan) hydroxyzine HCl 25 mg tablet 25 mg PO BID PRN anxiety #60 tabs 01/09/24 Unknown Rx prednisone 10 mg tablet mg PO 07/23/24 Unknown Histo ry Allergy/AdvReac Type Severity Reaction Status Date / Time Penicillins Allergy Mild Rash Verified 10/31/24 08:48 hydrocodone bitartrate (From Allergy Unknown Verified 10/31/24 08:48 Vicodin) lactose Allergy Upset Verified 10/31/24 08:48 Stomach Family History Grandfather Alcoholism Cancer Surgical History History of bunionectomy History of carpal tunnel release History of hernia repair History of tonsillectomy [place] teeth extracted History of partial hysterectomy Social History Smoking Status: Former smoker alcohol intake: never substance use type: does not use what type of physical activity do you participate in: walking frequency: daily duration: other details: 1-3 miles a day ROS ROS ED ROS Narrative Review of systems positive for migraine type headache with photophobia. No preceding aura. No chest pain or shortness of breath associated with the lightheaded and dizziness. Paresthesias of bilateral upper arms. No exacerbating or alleviating factors. No vomiting. EXAM Physical Exam Narrative Exam Narrative: Afebrile. Vital signs noted. Nontoxic-appearing. Patient sitting on the cot/lying on the cot with cold rag over her eyes in a darkened room. Cardiovascular examination reveals a regular rate and rhythm. Lungs are clear to auscultation bilaterally. Abdomen soft and nontender with positive bowel sounds, no guarding or rebound. Neurological examination is nonfocal and nonlateralizing. Able to raise arms up off of bed. Moves all extremities. Biceps reflexes in arms equal and symmetric. Const Vital Signs: 10/31/24 08:46 10/31/24 08:52 Temperature 97.4 F L Temperature Source Oral Pulse Rate 74 Respiratory Rate 16 Respiratory Effort Normal Respiratory Pattern Normal Blood Pressure 106/59 L Blood Pressure Mean 74 Pulse Ox 100 Oxygen Delivery Method Room Air MDM MDM MDM Narrative Medical decision making narrative: Reviewed the patient's prior records. Differential diagnosis includes but not limited to dehydration versus intravascular volume depletion versus migraine type headache. This seems very typical of her previous migraines. She will be given Compazine and Benadryl as well as a bolus of IV fluids. I will check her CBC to look for anemia and a basic metabolic panel to check her for dehydration or other electrolyte disturbance. Should the Compazine and Benadryl be an effective, other medications such as her sumatriptan hand or dexamethasone might be given. I reviewed her laboratory work and she has normal white count of 5.2 with hemoglobin 15.4 and slightly hemoconcentrated but hematocrit normal at 45.4, platelet count 218. BMP is grossly normal. This is except creatinine 0.62. Repeat examination at approximately 10:45 AM shows her headache is now a 5 out of 10, down at least 5 points from her original 10 out of 10. I do not feel she requires any CT imaging. She was able to ambulate to the bathroom independently. At this point in time, I had offered her a dose of sumatriptan hand here but she declined stating she will take it at home. She was told to follow-up with her primary care provider to see about new migraine medications, or possible referral to neurology as needed should her headaches become more frequent. At this point in time I feel she can be discharged to follow-up. Return instructions to the emergency department were reviewed. Disposition is discharged home in stable condition. History & Record Review Discussion w/independent historian: Patient Lab Data Attestation: I reviewed the patient's lab results. Labs: Laboratory Results - last 24 hr 10/31/24 09:25 WBC 5.2 RBC 4.86 Hgb 15.4 H Hct 45.4 MCV 93.4 MCH 31.7 MCHC 33.9 RDW Std Deviation 43.0 RDW Coeff of Cierra 12.5 Plt Count 218 MPV 10.1 Immature Gran % (Auto) 0.200 Neut % (Auto) 66.1 Lymph % (Auto) 26.1 Travis % (Auto) 6.0 Eos % (Auto) 1.0 Baso % (Auto) 0.6 Absolute Neuts (auto) 3.4 Absolute Lymphs (auto) 1.35 Nucleated RBC % 0 Sodium 138 Potassium 3.6 Chloride 102 Carbon Dioxide 24.0 Anion Gap 12 BUN 7 Creatinine 0.62 L Estim Creat Clear Calc 107.45 Est GFR (MDRD) Non-Af 115 BUN/Creatinine Ratio 11.2 Glucose 88 Calcium 9.2 Discharge Plan Triage Chief Complaint: General Illness ED Provider: Blake Husain Dx/Rx/DC Orders Clinical Impression: Headache, Migraine Instructions: Migraine Triggers, ED, Migraine (Classical) Prescriptions: No Action hydroxyzine HCl 25 mg tablet 25 mg PO BID PRN (Reason: anxiety) Qty: 60 2RF prednisone 10 mg tablet PO multivitamin 1 EACH tablet 1 tab PO DAILY valacyclovir 500 MG tablet 500 mg PO PRN PRN (Reason: OUT BREAK) metoclopramide HCl [Reglan] 5 mg tablet 5 mg PO Q8 PRN (Reason: Headache) Qty: 20 0RF Stand Alone Forms: ED Work / School Excuse Primary Care Provider: Venita Sanders Referrals: Venita Sanders MD [Primary Care Provider] - 3-5 Days if not improving Activity Restrictions/Additional Instructions: Take your sumatriptan hand when you get home. Return with increased pain, new or worsening symptoms. You may need to follow-up with a neurologist or discuss with your primary care provider newer migraine medications. Print Language: Tristanian Disposition Disposition: Home, Self Care
[2024-10-31 09:32] LABS: Absolute Lymphocyte Count 1.35 X10^3/uL (0.83-4.51); Absolute Neutrophil Count 3.4 X10^3/uL (2.0-7.7); Basophil# 0.03 X10^3/uL; Basophil% 0.6 % (0-1); Eosinophil# 0.05 X10^3/uL; Hematocrit 45.4 % (37-47); Hemoglobin 15.4 g/dL (12.0-15.0); Lymphocyte # 1.35 X10^3/ul (0.83-4.51); Lymphocyte % 26.1 % (19-41); Mean Corp Hgb Conc 33.9 g/dL (32-36); Mean Corpuscular Hgb 31.7 pg (27.0-32.0); Mean Corpuscular Volume 93.4 fL (81-99); Mean Platelet Vol. 10.1 fl (6.2-12.0); Monocyte# 0.31 X10^3/uL; NRBC Flagged by Analyzer 0 % (0-5); Neutrophil # 3.42 X10^3/uL (2.7-7.7); Neutrophil % 66.1 % (47-70); Platelet Count 218 K/mm3 (150-450); RBC Distribution Width CV 12.5 % (11.6-14.6); Red Blood Count 4.86 M/mm3 (4.2-5.4); White Blood Count 5.2 K/mm3 (4.4-11.0)
[2024-10-31] MEDS: DiphenhydrAMINE 50 MG/ML Syringe IV (09:33)
[2024-10-31] MEDS: 0.9% Normal Saline (1000mL) 1,000 ML 999 ML IV (09:33)
[2024-10-31] MEDS: proCHLORPERazine 10 MG/2 ML Vial IV (09:33)
[2024-10-31 09:57] LABS: Anion Gap 12 (5-15); BUN 7 mg/dL (4-19); BUN/Creat Ratio 11.2 RATIO (10-20); Calcium,Total 9.2 mg/dL (7.6-11.0); Chloride 102 mmol/L (98-108); Creatinine, Serum 0.62 mg/dL (0.70-1.20); EST Glomerular Filtration Rate 115 (>60); Estimated Creatinine Clearance 107.45 ml/min (50-250); Glucose 88 mg/dL (70-99); Potassium 3.6 mmol/L (3.3-5.1); Sodium Level 138 mmol/L (133-145)
[2024-10-31 10:45] VITALS: BP 128/76; PULSE 61; RESP 18; O2SAT 98
== END 2024-10-31 10:59 | disposition home or self-care (01) ==
PROVIDERS: Emergency Provider Emergency Medicine; PCP Internal Medicine; Visit Provider Emergency Medicine
DX: G43.909 Migraine, unspecified, not intractable, without status migrainosus (principal); R55 Syncope and collapse; Z87.891 Personal history of nicotine dependence
CPT/HCPCS: 80048; 85025; 96361; 96374; 96375; 99283; A4216